=== PATIENT | male | born 1970 | race Caucasian/White ===

== ENCOUNTER → 2016-10-23 | Outpatient (CLI) | payer MEDICARE, OTHER ==
--- NOTE | 2016-10-23 10:17 | MR ---
MRI CERVICAL SPINE: CLINICAL HISTORY: Cervicalgia per order. Neck pain for 30 years with pain down both arms per patient. TECHNIQUE: Multiplanar, multisequence imaging of the cervical spine is performed without IV contrast. COMPARISON: MRI cervical spine July 02, 2015. FINDINGS: Sagittal images of the cervical spine show the craniocervical junction to appear within nor mal limits. The cervical and upper thoracic spinal cord is normal in course, caliber, and signal. Th ere is levoconvex scoliotic curvature redemonstrated on coronal images centered near the cervical tho racic junction . The vertebral body and intravertebral disk heights are normal. No large posterior d isc herniations are seen on sagittal images. The bone marrow signal intensity is within normal limits . No significant spurring is present. Axial images show the C2-C3 level to remain within normal limits. Axial images at the C3-C4 level show some uncovertebral facet degenerative changes, left greater than right with some marginal spurring and left lateral disc protrusion causing asymmetric mild left-side d neural foraminal narrowing. Right-sided neural foramen is patent. Spinal canal is minimally effaced . No significant change from prior is seen Axial images at the C4-C5 level showed tiny left paracentral disc protrusion mildly effacing anterola teral thecal sac and causing mild left-sided neural foraminal narrowing. Right-sided neural foramen i s patent. No significant change from prior study is seen. Axial images at the C5-C6 level are felt to remain within normal limits. Axial images at the C6-C7 level show broad-based right paracentral disc protrusion effacing anterolat eral thecal sac on axial image 15 felt stable. Bilateral neural foramina remain patent. Axial images at C7-T1 level are felt to remain within normal limits. IMPRESSION: Multilevel degenerative changes in the cervical spine as detailed above with disc herniat ion most prominent at C6-C7 level again seen. No significant change from prior study is noted.
== END | disposition home or self-care (01) ==
LOC: RADMRIMAIN 07:08
PROVIDERS: ATTEND Psychiatry & Neurology Pain Medicine
DX: M50.223 Other cervical disc displacement at C6-C7 level (principal); M47.812 Spondylosis without myelopathy or radiculopathy, cervical region
CPT/HCPCS: 72141

== ENCOUNTER → 2016-11-16 | Outpatient (CLI) | payer MEDICARE, OTHER ==
[2016-11-16 11:28] LABS: ALT 30 U/L (21-72); AST 22 U/L (17-59); Alkaline Phosphatase 56 U/L (38-126); Anion Gap 12 mmol/L; Blood Urea Nitrogen 19 mg/dL (9-20); Carbon Dioxide 26 mmol/L (22-30); Chloride 109 mmol/L (98-107); Glucose 107 mg/dL (74-99); Non-African American GFR(MDRD) >60 (>60 ml/min/1.73 sqM); Potassium 4.5 mmol/L (3.5-5.1); Sodium 147 mmol/L (137-145); Total Bilirubin 0.4 mg/dL (0.2-1.3); Total Protein 6.6 g/dL (6.3-8.2)
[2016-11-16 12:12] LABS: Vitamin B12 581 pg/mL (239-931)
[2016-11-16 12:43] LABS: Hemoglobin A1C 5.2 % (4.2-6.1)
== END | disposition home or self-care (01) ==
LOC: LABWHC1 08:11
PROVIDERS: ATTEND Psychiatry & Neurology Pain Medicine
DX: R56.9 Unspecified convulsions (principal); M79.1 Myalgia
CPT/HCPCS: 36415; 80053; 82306; 82607; 83036; 84207

== ENCOUNTER → 2016-12-29 | Outpatient (CLI) | payer MEDICARE, OTHER | END | disposition home or self-care (01) | LOC: LABWHC1 09:34 | PROVIDERS: ATTEND Psychiatry & Neurology Pain Medicine | DX: Z51.81 Encounter for therapeutic drug level monitoring (principal); G40.919 Epilepsy, unspecified, intractable, without status epilepticus | CPT/HCPCS: 36415; 80164 ==

== ENCOUNTER 2017-01-30 00:50 | Emergency (ER) | payer MEDICARE, OTHER ==
[2017-01-30 01:18] VITALS: RESP 16; TEMP 98.3
--- NOTE | 2017-01-30 05:42 | ED ---
Psych HPI - General Chief Complaint: Psychiatric Symptoms Stated Complaint: ETOH Time Seen by Provider: 01/30/17 00:52 Source: patient Mode of arrival: EMS - Related Data Home Medications Medication Instructions Recorded Confirmed Albuterol Nebulized [Ventolin 2.5 mg INHALATION RT-TID 04/04/14 10/06/16 Nebulized] Divalproex ER [Depakote ER] 250 mg PO BID 04/04/14 10/06/16 Divalproex Sodium [Depakote ER] 500 mg PO BID 04/04/14 10/06/16 Multivitamin [Men's Multi-Vitamin] 1 tab PO DAILY 04/04/14 10/06/16 ALPRAZolam [Xanax] 0.5 mg PO HS 10/06/16 10/06/16 Arformoterol Tartrate [Brovana] 15 mcg INHALATION RT-BID 10/06/16 10/06/16 DULoxetine HCL [Cymbalta] 30 mg PO HS 10/06/16 10/06/16 Doxycycline Hyclate 100 mg PO DAILY 10/06/16 10/06/16 Ketoprofen [Orudis] 50 mg PO TID 10/06/16 10/06/16 Omeprazole [PriLOSEC] 20 mg PO AC-BID 10/06/16 10/06/16 Pregabalin [Lyrica] 75 mg PO QAM 10/06/16 10/06/16 Pregabalin [Lyrica] 150 mg PO HS 10/06/16 10/06/16 Ranitidine HCl [Zantac] 150 mg PO BID 10/06/16 10/06/16 levETIRAcetam [Keppra] 1,000 mg PO BID 10/06/16 10/06/16 Allergies Allergy/AdvReac Type Severity Reaction Status Date / Time hydrocodone [From Vicodin] Allergy Unknown Verified 01/30/17 01:18 phenobarbital Allergy Unknown Verified 01/30/17 01:18 Review of Systems ROS Statement: Those systems with pertinent positive or pertinent negative responses have been documented in the HPI. ROS Other: All systems not noted in ROS Statement are negative. Past Medical History Past Medical History: COPD, GERD/Reflux, Memory Impairment, Seizure Disorder History of Any Multi-Drug Resistant Organisms: None Reported Past Surgical History: Cholecystectomy, Orthopedic Surgery Additional Past Surgical History / Comment(s): vasectomy Past Psychological History: Anxiety, Depression Smoking Status: Current every day smoker Past Alcohol Use History: Occasional Past Drug Use History: None Reported General Exam Limitations: no limitations Course Vital Signs 01/30/17 01/30/17 01:15 05:33 Temperature 98.3 F Pulse Rate 100 86 Respiratory 16 16 Rate Blood Pressure 100/51 98/57 O2 Sat by Pulse 93 L 96 Oximetry Disposition Clinical Impression: Alcohol intoxication Disposition: HOME SELF-CARE Condition: Fair Instructions: Alcohol Intoxication (ED) Referrals: None,Stated [Primary Care Provider] - 1-2 days Yogi Stein MD [STAFF PHYSICIAN] - 1-2 days
[2017-01-30 06:02] VITALS: BP 94/53; PULSE 82
== END 2017-01-30 06:02 | disposition home or self-care (01) ==
LOC: EC 00:50
DX: F10.129 Alcohol abuse with intoxication, unspecified (principal); J44.9 Chronic obstructive pulmonary disease, unspecified; K21.9 Gastro-esophageal reflux disease without esophagitis; G40.909 Epilepsy, unspecified, not intractable, without status epilepticus; F41.9 Anxiety disorder, unspecified; F32.9 Major depressive disorder, single episode, unspecified; F17.210 Nicotine dependence, cigarettes, uncomplicated; Z88.5 Allergy status to narcotic agent; Z88.8 Allergy status to other drugs, medicaments and biological substances; Z79.51 Long term (current) use of inhaled steroids; Z79.899 Other long term (current) drug therapy
CPT/HCPCS: 82075; 99284

== ENCOUNTER → 2017-02-15 | Outpatient (CLI) | payer MEDICARE, OTHER | END | disposition home or self-care (01) | LOC: LABWHC1 10:48 | PROVIDERS: ATTEND Psychiatry & Neurology Pain Medicine | DX: G40.909 Epilepsy, unspecified, not intractable, without status epilepticus (principal); Z79.899 Other long term (current) drug therapy | CPT/HCPCS: 36415; 80164; 80177; 82306 ==

== ENCOUNTER 2017-04-21 21:04 | Emergency (ER) | payer MEDICARE, OTHER ==
[2017-04-21] MEDS ORDERED: SODIUM CHLORIDE 0.9% 1,000 ML IV ONE (22:12)
--- NOTE | 2017-04-21 22:32 | ED ---
Headache HPI - General Chief Complaint: Headache Stated Complaint: Dizzy/Headache Time Seen by Provider: 04/21/17 21:22 Source: RN notes reviewed Mode of arrival: ambulatory Limitations: no limitations - History of Present Illness Initial Comments: Patient is a 46-year-old male presents to the emergency room for evaluation of headache and nausea and general malaise. Patient states he has history of chronic migraines. Patient states he went to Dr. Muro's office to receive injections for headache. Patient states while walking home in the sunlight he felt very lightheaded so he sat under the shade. Patient states he felt better and while walking home and he began feeling lightheaded and nauseous again. Patient states after he got home he began developing a migraine again. Patient states he is feeling very weak and shaky and lightheaded. Patient also states he began urinating a small amount of blood while at the neurology office today. Patient denies any pain or burning during urination or trouble urinating. Patient denies flank pain or abdominal pain. Patient states he's never had this before. Patient states he's been urinating normal ever since. - Related Data Home Medications Medication Instructions Recorded Confirmed Albuterol Nebulized [Ventolin 2.5 mg INHALATION RT-TID 04/04/14 04/21/17 Nebulized] Divalproex ER [Depakote ER] 250 mg PO BID 04/04/14 04/21/17 Divalproex Sodium [Depakote ER] 500 mg PO BID 04/04/14 04/21/17 Multivitamin [Men's Multi-Vitamin] 1 tab PO DAILY 04/04/14 04/21/17 DULoxetine HCL [Cymbalta] 30 mg PO DAILY 10/06/16 04/21/17 Doxycycline Hyclate 100 mg PO DAILY 10/06/16 04/21/17 Ketoprofen [Orudis] 50 mg PO TID 10/06/16 04/21/17 Omeprazole [PriLOSEC] 20 mg PO AC-BID 10/06/16 04/21/17 Ranitidine HCl [Zantac] 150 mg PO BID 10/06/16 04/21/17 levETIRAcetam [Keppra] 1,000 mg PO BID 10/06/16 04/21/17 Biomed Pump 1 - 2 pump TOPICAL QID PRN 04/21/17 04/21/17 Cholecalciferol [Vitamin D3] 1,000 unit PO DAILY 04/21/17 04/21/17 Desipramine HCl 50 mg PO BID 04/21/17 04/21/17 Diazepam [Valium] 5 mg PO HS 04/21/17 04/21/17 Levothyroxine Sodium [Synthroid] 25 mcg PO DAILY 04/21/17 04/21/17 Mirtazapine [Remeron] 15 mg PO HS 04/21/17 04/21/17 QUEtiapine [SEROquel] 50 mg PO HS 04/21/17 04/21/17 Allergies Allergy/AdvReac Type Severity Reaction Status Date / Time hydrocodone [From Vicodin] Allergy Unknown Verified 04/21/17 22:06 phenobarbital Allergy Unknown Verified 04/21/17 22:06 Review of Systems ROS Statement: Those systems with pertinent positive or pertinent negative responses have been documented in the HPI. ROS Other: All systems not noted in ROS Statement are negative. Past Medical History Past Medical History: COPD, GERD/Reflux, Memory Impairment, Seizure Disorder History of Any Multi-Drug Resistant Organisms: None Reported Past Surgical History: Cholecystectomy, Orthopedic Surgery Additional Past Surgical History / Comment(s): vasectomy Past Psychological History: Anxiety, Depression Smoking Status: Current every day smoker Past Alcohol Use History: Occasional Past Drug Use History: None Reported General Exam - General Exam Comments Initial Comments: sitting in exam room, no acute distress. Limitations: no limitations General appearance: alert, in no apparent distress Head exam: Present: atraumatic, normocephalic, normal inspection Eye exam: Present: normal appearance ENT exam: Present: normal exam Neck exam: Present: normal inspection Respiratory exam: Present: normal lung sounds bilaterally. Absent: respiratory distress Cardiovascular Exam: Present: regular rate, normal rhythm, normal heart sounds GI/Abdominal exam: Present: soft, normal bowel sounds. Absent: distended, tenderness, guarding, rebound, rigid Extremities exam: Present: normal inspection Back exam: Present: normal inspection Neurological exam: Present: alert, oriented X3, CN II-XII intact, normal gait Psychiatric exam: Present: normal affect, normal mood Skin exam: Present: warm, dry, intact, normal color. Absent: rash Course Vital Signs 04/21/17 04/21/17 21:16 23:49 Temperature 98.4 F 98.1 F Pulse Rate 88 90 Respiratory 18 20 Rate Blood Pressure 118/75 114/63 O2 Sat by Pulse 100 95 Oximetry Medical Decision Making - Medical Decision Making Patient is a 38-year-old male presents to the emergency room for evaluation of migraine headache and lightheadedness. Labs show no concerning findings. Patient states headache is improved after fluids given. Advised patient to follow-up with neurologist or primary care provider. Patient states he understands everything that was discussed with him. Return parameters discussed. Case discussed with Dr. Conti. - Lab Data Result diagrams: 04/21/17 22:25 04/21/17 22:25 Lab Results 04/21/17 04/21/17 04/21/17 Range/Units 22:25 22:25 22:25 WBC 6.2 (3.8-10.6) k/uL RBC 4.34 (4.30-5.90) m/uL Hgb 14.0 (13.0-17.5) gm/dL Hct 40.2 (39.0-53.0) % MCV 92.5 (80.0-100.0) fL MCH 32.3 (25.0-35.0) pg MCHC 35.0 (31.0-37.0) g/dL RDW 13.0 (11.5-15.5) % Plt Count 228 (150-450) k/uL Neutrophils % 52 % Lymphocytes % 34 % Monocytes % 9 % Eosinophils % 2 % Basophils % 0 % Neutrophils # 3.2 (1.3-7.7) k/uL Lymphocytes # 2.1 (1.0-4.8) k/uL Monocytes # 0.5 (0-1.0) k/uL Eosinophils # 0.2 (0-0.7) k/uL Basophils # 0.0 (0-0.2) k/uL Sodium 142 (137-145) mmol/L Potassium 4.5 (3.5-5.1) mmol/L Chloride 107 (98-107) mmol/L Carbon Dioxide 28 (22-30) mmol/L Anion Gap 7 mmol/L BUN 27 H (9-20) mg/dL Creatinine 1.08 (0.66-1.25) mg/dL Est GFR (MDRD) Af Amer >60 (>60 ml/min/1.73 sqM) Est GFR (MDRD) Non-Af >60 (>60 ml/min/1.73 sqM) Glucose 98 (74-99) mg/dL Calcium 9.8 (8.4-10.2) mg/dL Total Bilirubin 0.5 (0.2-1.3) mg/dL AST 20 (17-59) U/L ALT 23 (21-72) U/L Alkaline Phosphatase 56 (38-126) U/L Total Protein 7.2 (6.3-8.2) g/dL Albumin 4.3 (3.5-5.0) g/dL Urine Color Yellow Urine Appearance Clear (Clear) Urine pH 6.0 (5.0-8.0) Ur Specific [place] 1.019 (1.001-1.035) Urine Protein Negative (Negative) Urine Glucose (UA) Negative (Negative) Urine Ketones Negative (Negative) Urine Blood Negative (Negative) Urine Nitrite Negative (Negative) Urine Bilirubin Negative (Negative) Urine Urobilinogen <2.0 (<2.0) mg/dL Ur Leukocyte Esterase Negative (Negative) Disposition Clinical Impression: Headache, Nausea Disposition: HOME SELF-CARE Condition: Good Instructions: Migraine Headache (ED) Additional Instructions: Please follow up with primary care provider or neurologist in 1-2 days. If any new symptom arises or symptoms worsen, return to ER as soon as possible. Referrals: Charles Muro MD [Primary Care Provider] - 1-2 days Time of Disposition: 00:05
[2017-04-21 22:34] LABS: Appearance,Urine Clear (Clear); Basophils % (A) 0 %; Bilirubin,Urine Negative (Negative); CHCM 34.7; Eosinophils # (A) 0.2 k/uL (0-0.7); Eosinophils % (A) 2 %; Glucose,Urine (UA) Negative (Negative); HCT 40.2 % (39.0-53.0); HDW 2.42; Ketones,Urine Negative (Negative); Leukocyte Esterase,Urine Negative (Negative); Luc # (Auto) 0.17; Luc % (Auto) 3; Lymphocytes # (A) 2.1 k/uL (1.0-4.8); Lymphocytes % (A) 34 %; MCH 32.3 pg (25.0-35.0); MCV 92.5 fL (80.0-100.0); Mean Platelet Volume 7.2; Monocytes # (A) 0.5 k/uL (0-1.0); Monocytes % (A) 9 %; Neutrophils # (A) 3.2 k/uL (1.3-7.7); Neutrophils % (A) 52 %; Nitrite,Urine Negative (Negative); Protein,Urine Negative (Negative); RBC 4.34 m/uL (4.30-5.90); Specific Gravity,Urine 1.019 (1.001-1.035); UA Billing (MACRO vs. MICRO) CHEM; Urobilinogen,Urine <2.0 mg/dL (<2.0); WBC 6.2 k/uL (3.8-10.6); WBC (Perox) 6.41
[2017-04-21 22:46] LABS: ALT 23 U/L (21-72); AST 20 U/L (17-59); Alkaline Phosphatase 56 U/L (38-126); Anion Gap 7 mmol/L; Blood Urea Nitrogen 27 mg/dL (9-20); Calcium 9.8 mg/dL (8.4-10.2); Carbon Dioxide 28 mmol/L (22-30); Chloride 107 mmol/L (98-107); Glucose 98 mg/dL (74-99); Non-African American GFR(MDRD) >60 (>60 ml/min/1.73 sqM); Potassium 4.5 mmol/L (3.5-5.1); Sodium 142 mmol/L (137-145); Total Bilirubin 0.5 mg/dL (0.2-1.3); Total Protein 7.2 g/dL (6.3-8.2)
[2017-04-21 23:52] VITALS: BP 114/63; PULSE 90; RESP 20; TEMP 98.1
== END 2017-04-22 00:18 | disposition home or self-care (01) ==
LOC: EC 21:04
DX: R51 Headache (principal); R11.0 Nausea; R53.81 Other malaise; R42 Dizziness and giddiness; J44.9 Chronic obstructive pulmonary disease, unspecified; K21.9 Gastro-esophageal reflux disease without esophagitis; G40.909 Epilepsy, unspecified, not intractable, without status epilepticus; F41.9 Anxiety disorder, unspecified; F32.9 Major depressive disorder, single episode, unspecified; F17.200 Nicotine dependence, unspecified, uncomplicated; Z86.69 Personal history of other diseases of the nervous system and sense organs; Z88.5 Allergy status to narcotic agent; Z88.8 Allergy status to other drugs, medicaments and biological substances; Z79.899 Other long term (current) drug therapy
CPT/HCPCS: 36415; 80053; 81003; 85025; 96360; 99283

== ENCOUNTER 2017-05-31 18:07 | Emergency (ER) | payer MEDICARE, OTHER ==
[2017-05-31 19:24] VITALS: RESP 18
--- NOTE | 2017-05-31 19:41 | ED ---
General Adult HPI - General Chief complaint: Seizure Stated complaint: Seizures (petit mals x 50) Time Seen by Provider: 05/31/17 19:04 Source: patient Mode of arrival: ambulatory Limitations: no limitations - History of Present Illness Initial comments: Patient is a 46-year-old male with past medical history of seizure disorder who presents to the ED today via private vehicle for evaluation of multiple seizures today. Per the patient has a history of tonic-clonic as well as absence seizure's. He is currently taking 1500 mg of Depakote daily, 2000 mg of Keppra daily and was recently started on ethosuximide. Per the patient he was advised to take one pill of ethosuximide daily then increase to 1 pill twice daily. Patient states that he started the medication on May 19, and yesterday was the first day that he took 2 pills daily. Patient states that today he believes he has had around 50 absence seizure's each lasting a few seconds. Patient states that when he has these seizures his eyes rolled backwards and he is just "gone" her moment. He states that when the seizure and he usually repeats what he is saying prior to the seizure but is back at his baseline. He seizures or similar to that Seizures He Has Had in the past. Patient States That He Called His Neurologist Today Who Advised Him to Increase His Ethosuximide to 3 Pills 3 Times Daily. Upon evaluation of the prescription for ethosuximide is states that the patient should be currently taking 2 pills 2 times daily. I read this to the patient who states he believed that the instructions were to take only 2 pills a day and is very confused by these instructions. He had only been taking a quarter of the recommended dose until yesterday when he took half the recommended dose. Patient does report he has a headache today, however he states he usually gets a headache when he has multiple SEIZURES. HE DENIES ANY FEVERS, CHILLS, NAUSEA , VOMITING, CHEST PAIN OR TROUBLE BREATHING - Related Data Home Medications Medication Instructions Recorded Confirmed Albuterol Nebulized [Ventolin 2.5 mg INHALATION RT-TID 04/04/14 05/31/17 Nebulized] Divalproex ER [Depakote ER] 250 mg PO BID 04/04/14 05/31/17 Divalproex Sodium [Depakote ER] 500 mg PO BID 04/04/14 05/31/17 Multivitamin [Men's Multi-Vitamin] 1 tab PO DAILY 04/04/14 05/31/17 DULoxetine HCL [Cymbalta] 30 mg PO DAILY 10/06/16 05/31/17 Doxycycline Hyclate 100 mg PO DAILY 10/06/16 05/31/17 Ketoprofen [Orudis] 50 mg PO TID 10/06/16 05/31/17 Omeprazole [PriLOSEC] 20 mg PO AC-BID 10/06/16 05/31/17 Ranitidine HCl [Zantac] 150 mg PO BID 10/06/16 05/31/17 levETIRAcetam [Keppra] 1,000 mg PO BID 10/06/16 05/31/17 Biomed Pump 1 - 2 pump TOPICAL QID PRN 04/21/17 05/31/17 Cholecalciferol [Vitamin D3] 1,000 unit PO DAILY 04/21/17 05/31/17 Desipramine HCl 50 mg PO BID 04/21/17 05/31/17 Diazepam [Valium] 5 mg PO HS 04/21/17 05/31/17 Levothyroxine Sodium [Synthroid] 25 mcg PO DAILY 04/21/17 05/31/17 Mirtazapine [Remeron] 15 mg PO HS 04/21/17 05/31/17 QUEtiapine [SEROquel] 50 mg PO HS 04/21/17 05/31/17 Ethosuximide [Zarontin] 500 mg PO BID 05/31/17 05/31/17 Allergies Allergy/AdvReac Type Severity Reaction Status Date / Time hydrocodone [From Vicodin] Allergy Unknown Verified 05/31/17 19:12 naproxen Allergy Unknown Verified 05/31/17 19:12 phenobarbital Allergy Unknown Verified 05/31/17 19:12 Review of Systems ROS Statement: Those systems with pertinent positive or pertinent negative responses have been documented in the HPI. ROS Other: All systems not noted in ROS Statement are negative. Constitutional: Denies: fever, chills Eyes: Denies: vision change Respiratory: Denies: cough, dyspnea Cardiovascular: Denies: chest pain, palpitations Endocrine: Denies: fatigue Gastrointestinal: Denies: abdominal pain, nausea, vomiting Musculoskeletal: Denies: back pain Skin: Denies: rash, lesions Neurological: Reports: headache, other (seizures) Psychiatric: Denies: anxiety, depression Hematological/Lymphatic: Denies: easy bleeding, easy bruising Past Medical History Past Medical History: COPD, GERD/Reflux, Memory Impairment, Seizure Disorder History of Any Multi-Drug Resistant Organisms: None Reported Past Surgical History: Cholecystectomy, Orthopedic Surgery Additional Past Surgical History / Comment(s): vasectomy Past Psychological History: Anxiety, Depression Smoking Status: Current every day smoker Past Alcohol Use History: Occasional Past Drug Use History: None Reported General Exam Limitations: no limitations General appearance: alert, in no apparent distress Head exam: Present: atraumatic, normocephalic, normal inspection Eye exam: Present: normal appearance, PERRL, EOMI. Absent: scleral icterus, conjunctival injection, periorbital swelling ENT exam: Present: normal exam, mucous membranes moist Neck exam: Present: normal inspection. Absent: tenderness, meningismus, lymphadenopathy Respiratory exam: Present: normal lung sounds bilaterally. Absent: respiratory distress, wheezes, rales, rhonchi, stridor Cardiovascular Exam: Present: regular rate, normal rhythm, normal heart sounds. Absent: systolic murmur, diastolic murmur, rubs, gallop, clicks GI/Abdominal exam: Present: soft, normal bowel sounds. Absent: distended, tenderness, guarding, rebound, rigid Extremities exam: Present: normal inspection, full ROM, normal capillary refill. Absent: tenderness, pedal edema, joint swelling, calf tenderness Neurological exam: Present: alert, oriented X3, CN II-XII intact Psychiatric exam: Present: other (odd affect, impaired recent memory) Skin exam: Present: warm, dry, intact Course Vital Signs 05/31/17 05/31/17 05/31/17 18:37 19:22 20:18 Temperature 98.3 F Pulse Rate 111 H 98 91 Respiratory 20 18 18 Rate Blood Pressure 149/87 124/87 133/82 O2 Sat by Pulse 100 100 97 Oximetry 05/31/17 21:09 Temperature 97.9 F Pulse Rate 92 Respiratory 18 Rate Blood Pressure 151/97 O2 Sat by Pulse 99 Oximetry Medical Decision Making - Medical Decision Making She was seen and evaluated, vital signs were reviewed. Patient was noted to be tachycardic Patient in seizure precautions Labs and IV fluids were ordered clearly does not understand the instructions on his ethosuximide, he has been underdosing himself by taking only 1 pill daily up until yesterday at which time he took 2 pills. Per the instructions on the bottle the patient should be taking 4 pills daily and per the patient he talk to his neurologist today who advised him to take 6 pills daily. Patient states he feels very confused about this medication. Patient's tachycardia improved after IV fluids Labs were unremarkable Depakote level was therapeutic Results were discussed with the patient, patient states he wanted and ethosuximide level, I advised him with this is not a lot we can obtain. The patient expresses appointment stated that he wouldn't come to the hospital if he knew he can get this level tested. Patient states he will see his neurologist in the morning to discuss his confusion about his medications. In the meantime he will take to ethosuximide in the morning prior to going to his neurology appointment. Patient has remained stable throughout his ED stay. He reports she's had no more absent seizures. He has had no witnessed Seizures. He Reports Feeling Well and Agreeable to Plan for Discharge Home. All Questions Pertaining to Care Were Answered the Best My Ability and Patient Was Discharged Home in Stable Condition. - Lab Data Result diagrams: 05/31/17 19:48 05/31/17 19:48 Lab Results 05/31/17 05/31/17 05/31/17 Range/Units 19:48 19:48 20:20 WBC 7.4 (3.8-10.6) k/uL RBC 4.50 (4.30-5.90) m/uL Hgb 14.4 (13.0-17.5) gm/dL Hct 41.7 (39.0-53.0) % MCV 92.7 (80.0-100.0) fL MCH 32.0 (25.0-35.0) pg MCHC 34.6 (31.0-37.0) g/dL RDW 13.3 (11.5-15.5) % Plt Count 232 (150-450) k/uL Neutrophils % 58 % Lymphocytes % 29 % Monocytes % 7 % Eosinophils % 2 % Basophils % 0 % Neutrophils # 4.3 (1.3-7.7) k/uL Lymphocytes # 2.1 (1.0-4.8) k/uL Monocytes # 0.5 (0-1.0) k/uL Eosinophils # 0.1 (0-0.7) k/uL Basophils # 0.0 (0-0.2) k/uL Sodium 144 (137-145) mmol/L Potassium 4.4 (3.5-5.1) mmol/L Chloride 106 (98-107) mmol/L Carbon Dioxide 27 (22-30) mmol/L Anion Gap 11 mmol/L BUN 14 (9-20) mg/dL Creatinine 0.80 (0.66-1.25) mg/dL Est GFR (MDRD) Af Amer >60 (>60 ml/min/1.73 sqM) Est GFR (MDRD) Non-Af >60 (>60 ml/min/1.73 sqM) Glucose 91 (74-99) mg/dL Calcium 10.1 (8.4-10.2) mg/dL Urine Color Yellow Urine Appearance Clear (Clear) Urine pH 7.0 (5.0-8.0) Ur Specific [place] 1.013 (1.001-1.035) Urine Protein Negative (Negative) Urine Glucose (UA) Negative (Negative) Urine Ketones Negative (Negative) Urine Blood Negative (Negative) Urine Nitrite Negative (Negative) Urine Bilirubin Negative (Negative) Urine Urobilinogen <2.0 (<2.0) mg/dL Ur Leukocyte Esterase Negative (Negative) Urine Opiates Screen (NotDetected) Ur Oxycodone Screen (NotDetected) Urine Methadone Screen (NotDetected) Ur Propoxyphene Screen (NotDetected) Ur Barbiturates Screen (NotDetected) Valproic Acid 64.2 ug/mL U Tricyclic Antidepress (NotDetected) Ur Phencyclidine Scrn (NotDetected) Ur Amphetamines Screen (NotDetected) U Methamphetamines Scrn (NotDetected) U Benzodiazepines Scrn (NotDetected) Urine Cocaine Screen (NotDetected) U Marijuana (THC) Screen (NotDetected) 05/31/17 Range/Units 20:20 WBC (3.8-10.6) k/uL RBC (4.30-5.90) m/uL Hgb (13.0-17.5) gm/dL Hct (39.0-53.0) % MCV (80.0-100.0) fL MCH (25.0-35.0) pg MCHC (31.0-37.0) g/dL RDW (11.5-15.5) % Plt Count (150-450) k/uL Neutrophils % % Lymphocytes % % Monocytes % % Eosinophils % % Basophils % % Neutrophils # (1.3-7.7) k/uL Lymphocytes # (1.0-4.8) k/uL Monocytes # (0-1.0) k/uL Eosinophils # (0-0.7) k/uL Basophils # (0-0.2) k/uL Sodium (137-145) mmol/L Potassium (3.5-5.1) mmol/L Chloride (98-107) mmol/L Carbon Dioxide (22-30) mmol/L Anion Gap mmol/L BUN (9-20) mg/dL Creatinine (0.66-1.25) mg/dL Est GFR (MDRD) Af Amer (>60 ml/min/1.73 sqM) Est GFR (MDRD) Non-Af (>60 ml/min/1.73 sqM) Glucose (74-99) mg/dL Calcium (8.4-10.2) mg/dL Urine Color Urine Appearance (Clear) Urine pH (5.0-8.0) Ur Specific [place] (1.001-1.035) Urine Protein (Negative) Urine Glucose (UA) (Negative) Urine Ketones (Negative) Urine Blood (Negative) Urine Nitrite (Negative) Urine Bilirubin (Negative) Urine Urobilinogen (<2.0) mg/dL Ur Leukocyte Esterase (Negative) Urine Opiates Screen Not Detected (NotDetected) Ur Oxycodone Screen Not Detected (NotDetected) Urine Methadone Screen Not Detected (NotDetected) Ur Propoxyphene Screen Not Detected (NotDetected) Ur Barbiturates Screen Not Detected (NotDetected) Valproic Acid ug/mL U Tricyclic Antidepress Detected H (NotDetected) Ur Phencyclidine Scrn Not Detected (NotDetected) Ur Amphetamines Screen Not Detected (NotDetected) U Methamphetamines Scrn Not Detected (NotDetected) U Benzodiazepines Scrn Detected H (NotDetected) Urine Cocaine Screen Not Detected (NotDetected) U Marijuana (THC) Screen Not Detected (NotDetected) Disposition Clinical Impression: Absence seizure Disposition: HOME SELF-CARE Condition: Good Instructions: Recurrent Seizures in Adults (ED) Referrals: Sanket Lee MD [STAFF PHYSICIAN] - 1-2 days
[2017-05-31] MEDS ORDERED: SODIUM CHLORIDE 0.9% 1,000 ML IV ONE (19:43)
[2017-05-31 19:57] LABS: Basophils % (A) 0 %; CH 32.1; CHCM 34.8; Eosinophils # (A) 0.1 k/uL (0-0.7); Eosinophils % (A) 2 %; HCT 41.7 % (39.0-53.0); HDW 2.66; HGB 14.4 gm/dL (13.0-17.5); Luc # (Auto) 0.31; Luc % (Auto) 4; Lymphocytes # (A) 2.1 k/uL (1.0-4.8); Lymphocytes % (A) 29 %; MCHC 34.6 g/dL (31.0-37.0); MCV 92.7 fL (80.0-100.0); Mean Platelet Volume 6.6; Monocytes # (A) 0.5 k/uL (0-1.0); Monocytes % (A) 7 %; Neutrophils # (A) 4.3 k/uL (1.3-7.7); Neutrophils % (A) 58 %; RDW 13.3 % (11.5-15.5); WBC 7.4 k/uL (3.8-10.6)
[2017-05-31 20:12] LABS: Anion Gap 11 mmol/L; Blood Urea Nitrogen 14 mg/dL (9-20); Calcium 10.1 mg/dL (8.4-10.2); Carbon Dioxide 27 mmol/L (22-30); Chloride 106 mmol/L (98-107); Glucose 91 mg/dL (74-99); Non-African American GFR(MDRD) >60 (>60 ml/min/1.73 sqM); Potassium 4.4 mmol/L (3.5-5.1); Sodium 144 mmol/L (137-145)
[2017-05-31 20:39] LABS: Appearance,Urine Clear (Clear); Bilirubin,Urine Negative (Negative); Glucose,Urine (UA) Negative (Negative); Ketones,Urine Negative (Negative); Leukocyte Esterase,Urine Negative (Negative); Nitrite,Urine Negative (Negative); Protein,Urine Negative (Negative); Specific Gravity,Urine 1.013 (1.001-1.035); UA Billing (MACRO vs. MICRO) CHEM; Urobilinogen,Urine <2.0 mg/dL (<2.0)
[2017-05-31 21:11] VITALS: BP 151/97; PULSE 92; TEMP 97.9
== END 2017-05-31 21:21 | disposition home or self-care (01) ==
LOC: EC 18:07
DX: G40.A09 Absence epileptic syndrome, not intractable, without status epilepticus (principal); R00.0 Tachycardia, unspecified; K21.9 Gastro-esophageal reflux disease without esophagitis; F41.9 Anxiety disorder, unspecified; F32.9 Major depressive disorder, single episode, unspecified; J44.9 Chronic obstructive pulmonary disease, unspecified; F17.200 Nicotine dependence, unspecified, uncomplicated; Z79.899 Other long term (current) drug therapy; Z88.1 Allergy status to other antibiotic agents; Z88.5 Allergy status to narcotic agent; Z88.8 Allergy status to other drugs, medicaments and biological substances
CPT/HCPCS: 36415; 80048; 80164; 80306; 81003; 85025; 99284

== ENCOUNTER → 2017-06-27 | Outpatient (CLI) | payer MEDICARE, OTHER | END | disposition home or self-care (01) | LOC: LABWHC1 09:23 | PROVIDERS: ATTEND Psychiatry & Neurology Neurology | DX: G40.909 Epilepsy, unspecified, not intractable, without status epilepticus (principal); Z51.81 Encounter for therapeutic drug level monitoring; Z79.899 Other long term (current) drug therapy | CPT/HCPCS: 36415; 80164; 80177 ==

== ENCOUNTER 2017-07-29 10:38 | Emergency (ER) | payer MEDICARE, OTHER ==
--- NOTE | 2017-07-29 11:40 | ED ---
General Adult HPI - General Chief complaint: Extremity Injury, Upper Stated complaint: RT HAND LEFT RIB INJURY FROM FALL Time Seen by Provider: 07/29/17 11:19 Source: patient, RN notes reviewed Mode of arrival: ambulatory Limitations: physical limitation - History of Present Illness Initial comments: 46-year-old male presenting status post fall. Patient states 3 days prior he fell down the stairs, missing a step. No preceding chest pain or palpitations. Patient fell striking his right hand and left chest wall. His been no difficulty breathing since the fall. No abdominal pain. No hematuria. Patient has no other pain complaint. No head or neck pain. He is complaining only of left lateral rib pain and right hand pain. - Related Data Home Medications Medication Instructions Recorded Confirmed Albuterol Nebulized [Ventolin 2.5 mg INHALATION RT-DAILY 04/04/14 07/29/17 Nebulized] Divalproex ER [Depakote ER] 250 mg PO BID 04/04/14 07/29/17 Divalproex Sodium [Depakote ER] 500 mg PO BID 04/04/14 07/29/17 Multivitamin [Men's Multi-Vitamin] 1 tab PO DAILY 04/04/14 07/29/17 DULoxetine HCL [Cymbalta] 30 mg PO DAILY 10/06/16 07/29/17 Omeprazole [PriLOSEC] 20 mg PO AC-BID 10/06/16 07/29/17 Ranitidine HCl [Zantac] 150 mg PO BID 10/06/16 07/29/17 levETIRAcetam [Keppra] 1,000 mg PO BID 10/06/16 07/29/17 Cholecalciferol [Vitamin D3] 1,000 unit PO DAILY 04/21/17 07/29/17 Diazepam [Valium] 5 mg PO HS 04/21/17 07/29/17 Levothyroxine Sodium [Synthroid] 25 mcg PO DAILY 04/21/17 07/29/17 Mirtazapine [Remeron] 15 mg PO HS 04/21/17 07/29/17 QUEtiapine [SEROquel] 50 mg PO HS 04/21/17 07/29/17 Ethosuximide [Zarontin] 500 mg PO BID 05/31/17 07/29/17 Arformoterol Tartrate [Brovana] 15 mcg INHALATION RT-BID 07/29/17 07/29/17 Previous Rx's Medication Instructions Recorded Acetaminophen-Codeine 300-30mg 1 tab PO Q6H PRN #12 tablet 07/29/17 [Tylenol #3] Allergies Allergy/AdvReac Type Severity Reaction Status Date / Time hydrocodone [From Vicodin] Allergy Unknown Verified 07/29/17 11:17 naproxen Allergy Unknown Verified 07/29/17 11:17 phenobarbital Allergy Unknown Verified 07/29/17 11:17 Review of Systems ROS Statement: Those systems with pertinent positive or pertinent negative responses have been documented in the HPI. ROS Other: All systems not noted in ROS Statement are negative. Past Medical History Past Medical History: COPD, GERD/Reflux, Memory Impairment, Seizure Disorder History of Any Multi-Drug Resistant Organisms: None Reported Past Surgical History: Cholecystectomy, Orthopedic Surgery Additional Past Surgical History / Comment(s): vasectomy Past Psychological History: Anxiety, Depression Smoking Status: Current every day smoker Past Alcohol Use History: None Reported Past Drug Use History: None Reported General Exam Limitations: physical limitation General appearance: alert, in no apparent distress Head exam: Present: atraumatic, normocephalic Eye exam: Present: normal appearance, PERRL ENT exam: Present: normal exam Neck exam: Present: normal inspection, full ROM. Absent: tenderness Respiratory exam: Present: normal lung sounds bilaterally, respiratory distress , chest wall tenderness (Left lateral chest wall, no external signs of trauma) Cardiovascular Exam: Present: regular rate, normal rhythm GI/Abdominal exam: Present: soft. Absent: distended, tenderness Extremities exam: Present: normal inspection, tenderness (Tenderness over the fifth metacarpal, no swelling or ecchymosis) Neurological exam: Present: alert, oriented X3, CN II-XII intact. Absent: motor sensory deficit Psychiatric exam: Present: normal affect, normal mood Skin exam: Present: warm, dry, intact Course Vital Signs 07/29/17 10:52 Temperature 97.7 F Pulse Rate 100 Respiratory 18 Rate Blood Pressure 134/89 O2 Sat by Pulse 99 Oximetry Procedures - Orthopedic Splinting/Casting Injury #1 Side: right Upper Extremity Injury Location: hand Upper Extremity Immobilizer: ulnar gutter Additional Comments: Neurovascularly intact pre-and post-splinting Medical Decision Making - Medical Decision Making 46-year-old male presents status post fall. Patient complaining of right hip pain and left rib pain. On examination patient does have tenderness over the base of the fifth metacarpal. X-ray reveals a nondisplaced fracture. Patient' s placed in an ulnar gutter and followed up with hand surgery. Regarding left rib pain. X-ray reveals nondisplaced fracture of the anterior margin of ribs 2 and 3 on the left that appear to have calcium formation, there is a possible nondisplaced fracture of the lateral margin of ribs 7, this is more consistent with the patient's current pain complaints. He is given an incentive spirometer and will follow-up with his primary care physician. Disposition Clinical Impression: Metacarpal bone fracture, Rib fracture Disposition: HOME SELF-CARE Condition: Good Instructions: Hand Fracture (ED), Rib Fracture (ED) Prescriptions: Acetaminophen-Codeine 300-30mg [Tylenol #3] 1 tab PO Q6H PRN #12 tablet PRN Reason: Pain Referrals: Minesh Watkins MD [Primary Care Provider] - 1-2 days Carloz Floyd DO [Doctor of Osteopathic Medicine] - 1-2 days Time of Disposition: 12:28
--- NOTE | 2017-07-29 12:02 | XR ---
EXAMINATION TYPE: XR hand complete RT DATE OF EXAM: 07/29/2017 CLINICAL HISTORY: Right hand pain after fall TECHNIQUE: Frontal, lateral and oblique images of the right hand are obtained. COMPARISON: None. FINDINGS: There is a noncomminuted, overall nondisplaced intra-articular fracture of the base of the fifth metacarpal with focal overlying soft tissue swelling. No additional fractures are seen. Osseous mineralization is within normal limits. No radiopaque foreign body. IMPRESSION: Intra-articular noncomminuted overall nondisplaced fracture of the base of the fifth meta carpal with associated soft tissue swelling.
--- NOTE | 2017-07-29 12:08 | XR ---
EXAMINATION TYPE: XR ribs LT w pa chest xray DATE OF EXAM: 07/29/2017 COMPARISON: NONE HISTORY: Fall downstairs with left-sided rib pain TECHNIQUE: Frontal chest radiograph and frontal as well as oblique views of the left ribs were perfor med. FINDINGS: Nondisplaced fractures of the anterior margins of ribs 2 and 3 on the left are seen that [place] to have surrounding callus formation on are age indeterminant both favored to be at least subacu te. Additional possible nondisplaced fracture of the seventh rib at its lateral margin is seen. The lungs are clear without evidence of focal consolidation, pleural effusion or pneumothorax. Right ribs remain unremarkable. Mild degenerative changes of the thoracic spine are noted. Cardiomediastina l silhouette is within normal limits with a prominent right epicardial fat pad present. IMPRESSION: 1. Nondisplaced fractures of the anterior margins of ribs 2 and 3 on the left that appear to have antonia rosalinda formation and are age indeterminant, favored to be at least subacute. 2. Additional possible nondisplaced fracture of the lateral margin of rib 7 on the left. 3. No acute cardiopulmonary process.
[2017-07-29 12:36] VITALS: BP 155/90; PULSE 85; RESP 20; TEMP 98
== END 2017-07-29 12:37 | disposition home or self-care (01) ==
LOC: EC 10:38
DX: S62.346A Nondisplaced fracture of base of fifth metacarpal bone, right hand, initial encounter for closed fracture (principal); S22.42XA Multiple fractures of ribs, left side, initial encounter for closed fracture; J44.9 Chronic obstructive pulmonary disease, unspecified; K21.9 Gastro-esophageal reflux disease without esophagitis; G40.909 Epilepsy, unspecified, not intractable, without status epilepticus; F32.9 Major depressive disorder, single episode, unspecified; F41.9 Anxiety disorder, unspecified; F17.200 Nicotine dependence, unspecified, uncomplicated; Z88.5 Allergy status to narcotic agent; Z88.6 Allergy status to analgesic agent; Z88.8 Allergy status to other drugs, medicaments and biological substances; Z79.899 Other long term (current) drug therapy; W10.9XXA Fall (on) (from) unspecified stairs and steps, initial encounter
CPT/HCPCS: 29125; 99283

== ENCOUNTER 2017-10-29 11:09 | Inpatient (IN) | payer MEDICARE, OTHER ==
[2017-10-29] MEDS ORDERED: MAGNESIUM SULFATE-D5W PMX 1 GM in DEXTROSE/WATER 1 100ML.BAG IVPB STA (11:11)
[2017-10-29] MEDS ORDERED: methylPREDNISolone SOD SUCCI 125 MG/2 ML VIAL IV STA (11:11)
[2017-10-29] MEDS ORDERED: IPRATROPIUM-ALBUTEROL 3 ML NEB INHALATION STA ×2 (11:11→14:06)
[2017-10-29] MEDS ORDERED: SODIUM CHLORIDE 0.9% 1,000 ML IV STA (11:11)
--- NOTE | 2017-10-29 11:25 | ED ---
SOB HPI - General Chief Complaint: Shortness of Breath Stated Complaint: Difficulty Breathing Time Seen by Provider: 10/29/17 11:09 Source: patient, EMS, RN notes reviewed Mode of arrival: EMS Limitations: no limitations - History of Present Illness Initial Comments: This is a 46-year-old male who was a smoker who has a history of COPD who states he had the onset last evening of a cough with shortness of breath. He had very bad this morning he had some sweats during the night no fevers or chills. He also complains of some right-sided chest pain after having fallen last week. He was never evaluated. Pain is sharp in nature. He had a cough with clear phlegm. He was given one updraft in route by paramedics was minimal relief thus far. He still has severe coughing and wheezing. MD Complaint: shortness of breath, cough - Related Data Home Medications Medication Instructions Recorded Confirmed Albuterol Nebulized [Ventolin 2.5 mg INHALATION RT-DAILY 04/04/14 10/29/17 Nebulized] Divalproex ER [Depakote ER] 250 mg PO BID 04/04/14 10/29/17 Divalproex Sodium [Depakote ER] 500 mg PO BID 04/04/14 10/29/17 Multivitamin [Men's Multi-Vitamin] 1 tab PO DAILY 04/04/14 10/29/17 Omeprazole [PriLOSEC] 20 mg PO AC-BID 10/06/16 10/29/17 Ranitidine HCl [Zantac] 150 mg PO BID 10/06/16 10/29/17 levETIRAcetam [Keppra] 1,000 mg PO BID 10/06/16 10/29/17 Cholecalciferol [Vitamin D3] 1,000 unit PO DAILY 04/21/17 10/29/17 Arformoterol Tartrate [Brovana] 15 mcg INHALATION RT-BID 07/29/17 10/29/17 DULoxetine HCL [Cymbalta] 60 mg PO HS 10/29/17 10/29/17 Levothyroxine Sodium [Synthroid] 50 mcg PO DAILY 10/29/17 10/29/17 Lisinopril-Hctz 10-12.5 mg 1 tab PO DAILY 10/29/17 10/29/17 [Zestoretic 10-12.5] Mirtazapine [Remeron] 30 mg PO HS 10/29/17 10/29/17 Allergies Allergy/AdvReac Type Severity Reaction Status Date / Time hydrocodone [From Vicodin] Allergy Unknown Verified 10/29/17 11:14 naproxen Allergy Unknown Verified 10/29/17 11:14 phenobarbital Allergy Unknown Verified 10/29/17 11:14 Review of Systems ROS Statement: Those systems with pertinent positive or pertinent negative responses have been documented in the HPI. ROS Other: All systems not noted in ROS Statement are negative. Past Medical History Past Medical History: COPD, GERD/Reflux, Seizure Disorder History of Any Multi-Drug Resistant Organisms: None Reported Past Surgical History: Cholecystectomy, Orthopedic Surgery Additional Past Surgical History / Comment(s): vasectomy Past Psychological History: Anxiety, Depression Smoking Status: Current every day smoker Past Alcohol Use History: None Reported Past Drug Use History: None Reported General Exam - General Exam Comments Initial Comments: This is a well-developed well-nourished awake alert oriented 3 male Limitations: no limitations General appearance: alert, anxious, in distress Head exam: Present: atraumatic, normocephalic, normal inspection Eye exam: Present: normal appearance, PERRL, EOMI. Absent: scleral icterus, conjunctival injection, periorbital swelling ENT exam: Present: normal exam, mucous membranes moist Neck exam: Present: normal inspection. Absent: tenderness, meningismus, lymphadenopathy Respiratory exam: Present: wheezes, accessory muscle use, decreased breath sounds. Absent: respiratory distress, rales, rhonchi, stridor Cardiovascular Exam: Present: normal rhythm, tachycardia, normal heart sounds. Absent: systolic murmur, diastolic murmur, rubs, gallop, clicks GI/Abdominal exam: Present: soft, normal bowel sounds. Absent: distended, tenderness, guarding, rebound, rigid Extremities exam: Present: normal inspection, full ROM, normal capillary refill. Absent: tenderness, pedal edema, joint swelling, calf tenderness Back exam: Present: normal inspection Neurological exam: Present: alert, oriented X3, CN II-XII intact Psychiatric exam: Present: normal affect, normal mood Skin exam: Present: warm, dry, intact, normal color. Absent: rash Course Vital Signs 10/29/17 10/29/17 10/29/17 11:10 12:13 12:38 Temperature 98.9 F Pulse Rate 134 H 112 H 111 H Respiratory 24 16 20 Rate Blood Pressure 130/72 115/62 O2 Sat by Pulse 97 97 Oximetry 10/29/17 10/29/17 10/29/17 13:46 14:40 14:49 Temperature Pulse Rate 100 100 104 H Respiratory 20 Rate Blood Pressure 102/66 O2 Sat by Pulse 97 Oximetry - Reevaluation(s) Reevaluation #1: 10/29/17 15:04 After the first series of treatments patient still continued to have difficulty breathing. He is still very dyspneic with wheezes diffusely in all lung [place] Reevaluation #2: 10/29/17 15:04 Reevaluation after last Reveals patient still coughing very dyspneic and wheezy. Patient has seen Dr. Guy in the past she will be admitted for continued inpatient treatment. Medical Decision Making - Medical Decision Making The patient continues to have difficulty breathing with diffuse wheezing. I did discuss findings with him the patient will be admitted I did discuss the case with Dr. Watkins. Patient does see Dr. Coles for pulmonary medicine will be consulted. - Lab Data Result diagrams: 10/29/17 11:22 10/29/17 11:22 Lab Results 10/29/17 10/29/17 10/29/17 Range/Units 11:22 11:22 11:22 WBC 7.3 (3.8-10.6) k/uL RBC 4.13 L (4.30-5.90) m/uL Hgb 12.8 L (13.0-17.5) gm/dL Hct 38.0 L (39.0-53.0) % MCV 92.1 (80.0-100.0) fL MCH 31.1 (25.0-35.0) pg MCHC 33.8 (31.0-37.0) g/dL RDW 13.7 (11.5-15.5) % Plt Count 189 (150-450) k/uL Neutrophils % (Manual) 67 % Band Neutrophils % 12 % Lymphocytes % (Manual) 11 % Monocytes % (Manual) 11 % Basophils % (Manual) 1 % Myelocytes % 1 % Neutrophils # (Manual) 5.70 (1.3-7.7) k/uL Lymphocytes # (Manual) 0.80 L (1.0-4.8) k/uL Monocytes # (Manual) 0.80 (0-1.0) k/uL Basophils # (Manual) 0.07 (0-0.2) k/uL Myelocytes # (Manual) 0.07 H (0) k/uL Nucleated RBCs 0 (0-0) /100 WBC Manual Slide Review Performed Toxic Granulation Present PT (9.0-12.0) sec INR (<1.2) APTT (22.0-30.0) sec D-Dimer (<0.60) mg/L FEU Sodium 139 (137-145) mmol/L Potassium 4.1 (3.5-5.1) mmol/L Chloride 101 (98-107) mmol/L Carbon Dioxide 25 (22-30) mmol/L Anion Gap 13 mmol/L BUN 21 H (9-20) mg/dL Creatinine 1.07 (0.66-1.25) mg/dL Est GFR (MDRD) Af Amer >60 (>60 ml/min/1.73 sqM) Est GFR (MDRD) Non-Af >60 (>60 ml/min/1.73 sqM) Glucose 107 H (74-99) mg/dL Calcium 9.6 (8.4-10.2) mg/dL Magnesium 1.9 (1.6-2.3) mg/dL Total Bilirubin 0.2 (0.2-1.3) mg/dL AST 28 (17-59) U/L ALT 33 (21-72) U/L Alkaline Phosphatase 58 (38-126) U/L Total Creatine Kinase 122 (55-170) U/L CK-MB (CK-2) 1.2 (0.0-2.4) ng/mL CK-MB (CK-2) Rel Index 1.0 Troponin I <0.012 (0.000-0.034) ng/mL NT-Pro-B Natriuret Pep pg/mL Total Protein 7.2 (6.3-8.2) g/dL Albumin 4.3 (3.5-5.0) g/dL Influenza Type A RNA (Not Detectd) Influenza Type B (PCR) (Not Detectd) 10/29/17 10/29/17 10/29/17 Range/Units 11:22 11:22 11:22 WBC (3.8-10.6) k/uL RBC (4.30-5.90) m/uL Hgb (13.0-17.5) gm/dL Hct (39.0-53.0) % MCV (80.0-100.0) fL MCH (25.0-35.0) pg MCHC (31.0-37.0) g/dL RDW (11.5-15.5) % Plt Count (150-450) k/uL Neutrophils % (Manual) % Band Neutrophils % % Lymphocytes % (Manual) % Monocytes % (Manual) % Basophils % (Manual) % Myelocytes % % Neutrophils # (Manual) (1.3-7.7) k/uL Lymphocytes # (Manual) (1.0-4.8) k/uL Monocytes # (Manual) (0-1.0) k/uL Basophils # (Manual) (0-0.2) k/uL Myelocytes # (Manual) (0) k/uL Nucleated RBCs (0-0) /100 WBC Manual Slide Review Toxic Granulation PT 10.1 (9.0-12.0) sec INR 1.0 (<1.2) APTT 25.9 (22.0-30.0) sec D-Dimer 0.41 (<0.60) mg/L FEU Sodium (137-145) mmol/L Potassium (3.5-5.1) mmol/L Chloride (98-107) mmol/L Carbon Dioxide (22-30) mmol/L Anion Gap mmol/L BUN (9-20) mg/dL Creatinine (0.66-1.25) mg/dL Est GFR (MDRD) Af Amer (>60 ml/min/1.73 sqM) Est GFR (MDRD) Non-Af (>60 ml/min/1.73 sqM) Glucose (74-99) mg/dL Calcium (8.4-10.2) mg/dL Magnesium (1.6-2.3) mg/dL Total Bilirubin (0.2-1.3) mg/dL AST (17-59) U/L ALT (21-72) U/L Alkaline Phosphatase (38-126) U/L Total Creatine Kinase (55-170) U/L CK-MB (CK-2) (0.0-2.4) ng/mL CK-MB (CK-2) Rel Index Troponin I (0.000-0.034) ng/mL NT-Pro-B Natriuret Pep 47 pg/mL Total Protein (6.3-8.2) g/dL Albumin (3.5-5.0) g/dL Influenza Type A RNA Not Detected (Not Detectd) Influenza Type B (PCR) Not Detected (Not Detectd) - Radiology Data Radiology results: report reviewed (I did review the imaging and reports no acute findings.), image reviewed Critical Care Time Critical Care Time: Yes Critical Care Time: 36 minutes of critical care time includes initial presentation with monitoring the EMS run and discussed with paramedics history physical labs x-rays multiple re-evaluations the patient discussed with the patient regarding the findings discussed with the beta physician admission orders and documentation of the above. Disposition Clinical Impression: Acute exacerbation of chronic obstructive airways disease, Adult respiratory distress syndrome Disposition: ADMITTED IP TO THIS HOSP Condition: Stable Referrals: Minesh Watkins MD [Primary Care Provider] - 1-2 days
[2017-10-29 11:43] LABS: ALT 33 U/L (21-72); AST 28 U/L (17-59); Albumin 4.3 g/dL (3.5-5.0); Alkaline Phosphatase 58 U/L (38-126); Anion Gap 13 mmol/L; Blood Urea Nitrogen 21 mg/dL (9-20); Calcium 9.6 mg/dL (8.4-10.2); Carbon Dioxide 25 mmol/L (22-30); Chloride 101 mmol/L (98-107); Glucose 107 mg/dL (74-99); HGB 12.8 gm/dL (13.0-17.5); MCH 31.1 pg (25.0-35.0); MCHC 33.8 g/dL (31.0-37.0); MCV 92.1 fL (80.0-100.0); Magnesium 1.9 mg/dL (1.6-2.3); Mean Platelet Volume 6.7; Platelet Count 189 k/uL (150-450); Potassium 4.1 mmol/L (3.5-5.1); RBC 4.13 m/uL (4.30-5.90); RDW 13.7 % (11.5-15.5); Sodium 139 mmol/L (137-145); Total Bilirubin 0.2 mg/dL (0.2-1.3); Total Protein 7.2 g/dL (6.3-8.2); WBC 7.3 k/uL (3.8-10.6)
[2017-10-29 11:50] LABS: D-Dimer 0.41 mg/L FEU (<0.60); Partial Thromboplastin Time 25.9 sec (22.0-30.0); Prothrombin Time 10.1 sec (9.0-12.0)
[2017-10-29 12:01] LABS: Creatine Kinase 122 U/L (55-170)
--- NOTE | 2017-10-29 12:04 | XR ---
EXAMINATION TYPE: XR chest 2V DATE OF EXAM: 10/29/2017 HISTORY: difficulty breathing. REFERENCE: Previous study dated 07/29/2017. FINDINGS: The lungs are clear. Pleural spaces are clear. The heart is not enlarged. IMPRESSION: NO ACUTE INTRATHORACIC ABNORMALITY.
[2017-10-29 12:06] LABS: Band Neutrophils % 12 %; Basophils # (M) 0.07 k/uL (0-0.2); Myelocytes # (M) 0.07 k/uL (0); Myelocytes % 1 %; Neutrophils % (M) 67 %; Nucleated Red Blood Cells 0 /100 WBC (0-0); Total Cells Counted 200; Toxic Granulation Present
[2017-10-29 12:14] LABS: Creatine Kinase MB 1.2 ng/mL (0.0-2.4); Troponin I <0.012 ng/mL (0.000-0.034)
[2017-10-29] MEDS: IPRATROPIUM-ALBUTEROL 3 ML NEB INHALATION SCH ×3 (16:06→23:45)
[2017-10-29 16:41] VITALS: BMI 29.3
[2017-10-29] MEDS: SODIUM CHLORIDE 0.9% 1,000 ML IV SCH (17:41)
[2017-10-29] MEDS: methylPREDNISolone SOD SUCCI 125 MG/2 ML VIAL IV SCH (17:41)
[2017-10-29] MEDS: INSULIN ASPART 100 UNIT/ML 1 ML 10 ML VIAL SQ SCH ×2 (17:41→21:04)
[2017-10-29 17:48] LABS: Glucose,Whole Blood 115 mg/dL (75-99)
[2017-10-29] MEDS: PANTOPRAZOLE 40 MG TABLET PO SCH (17:52)
[2017-10-29] MEDS: ACETAMINOPHEN TAB 325 MG TAB PO PRN (18:27)
[2017-10-29] MEDS: FORMOTEROL FUMARATE 20 MCG/2 ML NEBU INHALATION SCH (19:42)
[2017-10-29 20:51] LABS: Glucose,Whole Blood 139 mg/dL (75-99)
[2017-10-29] MEDS: MIRTAZAPINE 15 MG TAB PO SCH (20:58)
[2017-10-29] MEDS: DULoxetine HCL 60 MG CAPSULE.DR PO SCH (20:58)
[2017-10-29] MEDS: levETIRAcetam 500 MG TAB PO SCH (20:58)
[2017-10-29] MEDS: DIVALPROEX ER 500 MG TAB.ER.24H PO SCH (20:59)
[2017-10-29] MEDS: DIVALPROEX ER 250 MG TAB.ER.24H PO SCH (20:59)
[2017-10-29] MEDS: FAMOTIDINE 20 MG TAB PO SCH (20:59)
[2017-10-30] MEDS: methylPREDNISolone SOD SUCCI 125 MG/2 ML VIAL IV SCH ×5 (00:04→23:04)
[2017-10-30] MEDS: ACETAMINOPHEN TAB 325 MG TAB PO PRN ×3 (00:07→14:03)
[2017-10-30] MEDS: IPRATROPIUM-ALBUTEROL 3 ML NEB INHALATION SCH ×7 (00:29→23:19)
[2017-10-30] MEDS: LEVOTHYROXINE 50 MCG TAB PO SCH (05:49)
[2017-10-30] MEDS: SODIUM CHLORIDE 0.9% 1,000 ML IV SCH ×3 (05:57→23:01)
[2017-10-30 07:32] LABS: Glucose,Whole Blood 164 mg/dL (75-99)
[2017-10-30] MEDS: INSULIN ASPART 100 UNIT/ML 1 ML 10 ML VIAL SQ SCH ×4 (07:44→21:12)
[2017-10-30] MEDS: DIVALPROEX ER 500 MG TAB.ER.24H PO SCH ×2 (07:44→21:11)
[2017-10-30] MEDS: PANTOPRAZOLE 40 MG TABLET PO SCH ×2 (07:44→17:40)
[2017-10-30] MEDS: FAMOTIDINE 20 MG TAB PO SCH ×2 (07:45→21:11)
[2017-10-30] MEDS: DIVALPROEX ER 250 MG TAB.ER.24H PO SCH ×2 (07:45→21:12)
[2017-10-30] MEDS: LISINOPRIL-HCTZ 10-12.5 MG 1 EACH TAB PO SCH (07:46)
[2017-10-30] MEDS: levETIRAcetam 500 MG TAB PO SCH ×2 (07:46→21:11)
[2017-10-30] MEDS: BUDESONIDE 0.5 MG/2 ML NEBU INHALATION SCH ×2 (08:25→19:47)
[2017-10-30] MEDS: FORMOTEROL FUMARATE 20 MCG/2 ML NEBU INHALATION SCH ×2 (08:25→19:47)
--- NOTE | 2017-10-30 08:36 | P.CNPUL ---
History of Present Illness Consult date: 10/29/17 (Late entry note) Reason for consult: dyspnea, cough, chest pain, pneumonia Chief complaint: Cough shortness of breath and wheezing for 1 day duration, History of present illness: Mr. Yogi ivey is well-known to me he is a 46-year-old male with history of chronic persistent asthma and severe COPD has a long-standing history of smoking and nicotine use, patient has been fairly stable on the 3-4 times a day nebulizer treatment at home as well as MDI patient had a fall about a week ago developed some pain and discomfort on the right side with slightly improved however over the period of time but however one day prior to coming into the hospital he started having cough congestion shortness of breath and wheezing patient intermittent sputum production but because of the pain has difficult to bring it up usually is light in color mucoid and frothy, denies any hemoptysis, denies any night sweats fever or chills did have a feverish feeling Review of Systems All systems: negative Constitutional: Reports as per HPI Eyes: bilateral as per HPI Ears: deny: decreased hearing, ear discharge, earache, tinnitus Ears, nose, mouth and throat: Reports as per HPI Cardiovascular: Reports as per HPI, Reports chest pain (Chest pain is mostly pleuritic on the right side of the chest initially was because of the fall but daily because of persistent coughing ) Respiratory: Reports as per HPI, Reports congestion, Reports cough, Reports cough with sputum, Reports dyspnea, Reports pain, Reports pain on inspiration Gastrointestinal: Reports as per HPI Genitourinary: Reports as per HPI Musculoskeletal: Reports as per HPI Integumentary: Reports as per HPI Neurological: Reports as per HPI Psychiatric: Reports as per HPI Endocrine: Reports as per HPI Hematologic/Lymphatic: Reports as per HPI Allergic/Immunologic: Reports as per HPI Past Medical History Past Medical History: COPD, GERD/Reflux, Seizure Disorder History of Any Multi-Drug Resistant Organisms: None Reported Past Surgical History: Cholecystectomy, Orthopedic Surgery Additional Past Surgical History / Comment(s): vasectomy Past Psychological History: Anxiety, Depression Smoking Status: Current every day smoker Past Alcohol Use History: None Reported Past Drug Use History: None Reported - Past Family History Mother Family Medical History: Hypertension Father Additional Family Medical History / Comment(s): lung cancer Medications and Allergies Home Medications Medication Instructions Recorded Confirmed Type Albuterol Nebulized [Ventolin 2.5 mg INHALATION RT-DAILY 04/04/14 10/29/17 History Nebulized] Divalproex ER [Depakote ER] 250 mg PO BID 04/04/14 10/29/17 History Divalproex Sodium [Depakote ER] 500 mg PO BID 04/04/14 10/29/17 History Multivitamin [Men's Multi-Vitamin] 1 tab PO DAILY 04/04/14 10/29/17 History Omeprazole [PriLOSEC] 20 mg PO AC-BID 10/06/16 10/29/17 History Ranitidine HCl [Zantac] 150 mg PO BID 10/06/16 10/29/17 History levETIRAcetam [Keppra] 1,000 mg PO BID 10/06/16 10/29/17 History Cholecalciferol [Vitamin D3] 1,000 unit PO DAILY 04/21/17 10/29/17 History Arformoterol Tartrate [Brovana] 15 mcg INHALATION RT-BID 07/29/17 10/29/17 History DULoxetine HCL [Cymbalta] 60 mg PO HS 10/29/17 10/29/17 History Levothyroxine Sodium [Synthroid] 50 mcg PO DAILY 10/29/17 10/29/17 History Lisinopril-Hctz 10-12.5 mg 1 tab PO DAILY 10/29/17 10/29/17 History [Zestoretic 10-12.5] Mirtazapine [Remeron] 30 mg PO HS 10/29/17 10/29/17 History Allergies Allergy/AdvReac Type Severity Reaction Status Date / Time hydrocodone [From Vicodin] Allergy Unknown Verified 10/29/17 11:14 naproxen Allergy Unknown Verified 10/29/17 11:14 phenobarbital Allergy Unknown Verified 10/29/17 11:14 Physical Exam Vitals: Vital Signs Temp Pulse Pulse Resp BP BP Pulse Ox 10/30/17 04:43 98 10/30/17 04:32 100 10/30/17 00:35 108 H 10/30/17 00:29 102 H 10/29/17 22:40 97.5 F L 82 16 100/49 95 10/29/17 19:48 108 H 10/29/17 19:38 105 H 10/29/17 16:30 98.2 F 99 22 116/72 97 10/29/17 16:02 97 22 117/73 97 10/29/17 14:49 104 H 10/29/17 14:40 100 10/29/17 13:46 100 20 102/66 97 10/29/17 12:38 111 H 20 115/62 97 10/29/17 12:13 112 H 16 10/29/17 11:10 98.9 F 134 H 24 130/72 97 Intake and Output 10/29/17 10/30/17 10/30/17 22:59 06:59 14:59 Other: # Voids 2 2 # Bowel Movements 0 Weight 65.913 kg - Constitutional General appearance: mild distress, thin - EENT Eyes: EOMI, PERRLA, normal appearance Ears: bilateral: normal - Neck Neck: normal ROM Carotids: bilateral: upstroke normal, bruit absent Thyroid: bilateral: normal size - Respiratory Respiratory: bilateral: diminished, rhonchi, wheezing, prolonged expiration, negative: CTA, dullness, rales, prolonged inspiration - Cardiovascular Rhythm: regular Heart sounds: normal: S1, S2 - Gastrointestinal General gastrointestinal: normal bowel sounds, soft - Integumentary Integumentary: normal, normal turgor - Neurologic Neurologic: CNII-XII intact - Musculoskeletal Musculoskeletal: gait normal, strength equal bilaterally - Psychiatric Psychiatric: A&O x's 3, appropriate affect, intact judgment & insight Results - Laboratory Findings CBC and BMP: 10/29/17 11:22 10/29/17 11:22 PT/INR, D-dimer PT 10.1 sec (9.0-12.0) 10/29/17 11:22 INR 1.0 (<1.2) 10/29/17 11:22 D-Dimer 0.41 mg/L FEU (<0.60) 10/29/17 11:22 Abnormal lab findings: Abnormal Labs 10/29/17 10/29/17 10/29/17 11:22 11:22 17:20 RBC 4.13 L Hgb 12.8 L Hct 38.0 L Lymphocytes # (Manual) 0.80 L Myelocytes # (Manual) 0.07 H BUN 21 H Glucose 107 H POC Glucose (mg/dL) 115 H 10/29/17 10/30/17 20:47 07:18 RBC Hgb Hct Lymphocytes # (Manual) Myelocytes # (Manual) BUN Glucose POC Glucose (mg/dL) 139 H 164 H - Diagnostic Findings Chest x-ray: report reviewed, image reviewed (No obvious infiltrates are noted) Assessment and Plan Assessment: Right-sided musculoskeletal chest pain related to fall now as well as related to acute COPD exacerbation Acute COPD exacerbation Severe COPD along with chronic persistent asthma Mood disorder depression gerd Plan: Agri with breathing treatments IV steroids deep breathing exercises incentive spirometry, resume home medications Will observe off of antibiotics will reassess in the morning with further recommendations pending, if no significant improvement is noted consider adding antibiotics and obtaining rib view x-rays we'll follow closely Time with Patient: Greater than 30
--- NOTE | 2017-10-30 08:42 | P.PN ---
Subjective Progress Note Date: 10/30/17 Principal diagnosis: Right-sided chest pain, acute COPD exacerbation, tracheobronchitis 10/30/2017, patient seen and evaluated examined during the rounds he continued to have right-sided pleuritic chest pain and shortness of breath and wheezing he has reproducible tenderness present infero-posterior lateral aspect of the right thoracic wall moderate gets worse with coughing and deep breathing exercise, patient does feel congested but and able to bring sputum up, he has been tolerating breathing treatments fairly well including IV steroids has been resumed already on his home medications Mr. Yogi ivey is well-known to me he is a 46-year-old male with history of chronic persistent asthma and severe COPD has a long-standing history of smoking and nicotine use, patient has been fairly stable on the 3-4 times a day nebulizer treatment at home as well as MDI patient had a fall about a week ago developed some pain and discomfort on the right side with slightly improved however over the period of time but however one day prior to coming into the hospital he started having cough congestion shortness of breath and wheezing patient intermittent sputum production but because of the pain has difficult to bring it up usually is light in color mucoid and frothy, denies any hemoptysis, denies any night sweats fever or chills did have a feverish feeling Objective - Vital Signs Vital signs: Vital Signs Temp 97.5 F L 10/29/17 22:40 Pulse 88 10/30/17 08:28 Resp 16 10/29/17 22:40 BP 100/49 10/29/17 22:40 Pulse Ox 95 10/30/17 08:28 Intake & Output 10/29/17 10/30/17 10/30/17 18:59 06:59 18:59 Weight 65.913 kg Other: # Voids 2 # Bowel Movements 0 - Exam Constitutional General appearance: mild distress, thin - EENT Eyes: EOMI, PERRLA, normal appearance Ears: bilateral: normal - Neck Neck: normal ROM Carotids: bilateral: upstroke normal, bruit absent Thyroid: bilateral: normal size - Respiratory Respiratory: bilateral: diminished, rhonchi, wheezing, prolonged expiration, negative: CTA, dullness, rales, prolonged inspiration, noted reproducible tenderness is present on the inferior part of the posterior lateral thoracic wall on the right side - Cardiovascular Rhythm: regular Heart sounds: normal: S1, S2 - Gastrointestinal General gastrointestinal: normal bowel sounds, soft - Integumentary Integumentary: normal, normal turgor - Neurologic Neurologic: CNII-XII intact - Musculoskeletal Musculoskeletal: gait normal, strength equal bilaterally - Psychiatric Psychiatric: A&O x's 3, appropriate affect, intact judgment & insight - Labs CBC & Chem 7: 10/29/17 11:22 10/29/17 11:22 Labs: Abnormal Lab Results - Last 24 Hours (Table) 10/29/17 10/29/17 10/29/17 Range/Units 11:22 11:22 17:20 RBC 4.13 L (4.30-5.90) m/uL Hgb 12.8 L (13.0-17.5) gm/dL Hct 38.0 L (39.0-53.0) % Lymphocytes # (Manual) 0.80 L (1.0-4.8) k/uL Myelocytes # (Manual) 0.07 H (0) k/uL BUN 21 H (9-20) mg/dL Glucose 107 H (74-99) mg/dL POC Glucose (mg/dL) 115 H (75-99) mg/dL 10/29/17 10/30/17 Range/Units 20:47 07:18 RBC (4.30-5.90) m/uL Hgb (13.0-17.5) gm/dL Hct (39.0-53.0) % Lymphocytes # (Manual) (1.0-4.8) k/uL Myelocytes # (Manual) (0) k/uL BUN (9-20) mg/dL Glucose (74-99) mg/dL POC Glucose (mg/dL) 139 H 164 H (75-99) mg/dL Assessment and Plan Assessment: Right-sided musculoskeletal chest pain related to fall now as well as related to acute COPD exacerbation Acute COPD exacerbation Severe COPD along with chronic persistent asthma Mood disorder depression gerd Plan: Agri with breathing treatments IV steroids deep breathing exercises incentive spirometry, resume home medications Will obtain a chest x-ray repeat along with the housing liaison view on the right side also initiate patient on antibiotics, will reassess in with further recommendations pending, if no significant improvement is noted consider adding antibiotics and obtaining rib view x-rays we'll follow closely Time with Patient: Greater than 30
[2017-10-30] MEDS: cefTRIAXone IN SWFI 1,000 MG/10 ML SYRINGE IVP SCH (10:39)
--- NOTE | 2017-10-30 10:48 | XR ---
EXAMINATION TYPE: XR chest 2V DATE OF EXAM: 10/30/2017 HISTORY: pneumonia. REFERENCE: Previous study dated 10/29/2017. FINDINGS: The lungs are clear. Pleural spaces are clear. Heart size is normal. IMPRESSION: NO ACTIVE INTRATHORACIC DISEASE.
[2017-10-30] MEDS: CHOLECALCIFEROL 1,000 UNIT TAB PO SCH (12:33)
[2017-10-30] MEDS: MULTIVITAMINS, THERA 1 EACH TAB PO SCH (12:33)
[2017-10-30 13:11] LABS: Glucose,Whole Blood 187 mg/dL (75-99)
--- NOTE | 2017-10-30 14:45 | P.HPIM ---
History of Present Illness H&P Date: 10/30/17 Yogi Allison is a 46-year-old male, well known to my practice with history of chronic persistent asthma and severe COPD and history of smoking, who presented to [facility] emergency room with a chief complaint of cough and right sided chest pain. Patient states that his symptoms started a few days ago he was having cough and worsening shortness of breath. On the day of admission he started having right sided chest. He denies any fever or chills denies any hemoptysis. Past Medical History Past Medical History: COPD, GERD/Reflux, Seizure Disorder History of Any Multi-Drug Resistant Organisms: None Reported Past Surgical History: Cholecystectomy, Orthopedic Surgery Additional Past Surgical History / Comment(s): vasectomy Past Psychological History: Anxiety, Depression Smoking Status: Current every day smoker Past Alcohol Use History: None Reported Past Drug Use History: None Reported - Past Family History Mother Family Medical History: Hypertension Father Additional Family Medical History / Comment(s): lung cancer Medications and Allergies Home Medications Medication Instructions Recorded Confirmed Type Albuterol Nebulized [Ventolin 2.5 mg INHALATION RT-DAILY 04/04/14 10/29/17 History Nebulized] Divalproex ER [Depakote ER] 250 mg PO BID 04/04/14 10/29/17 History Divalproex Sodium [Depakote ER] 500 mg PO BID 04/04/14 10/29/17 History Multivitamin [Men's Multi-Vitamin] 1 tab PO DAILY 04/04/14 10/29/17 History Omeprazole [PriLOSEC] 20 mg PO AC-BID 10/06/16 10/29/17 History Ranitidine HCl [Zantac] 150 mg PO BID 10/06/16 10/29/17 History levETIRAcetam [Keppra] 1,000 mg PO BID 10/06/16 10/29/17 History Cholecalciferol [Vitamin D3] 1,000 unit PO DAILY 04/21/17 10/29/17 History Arformoterol Tartrate [Brovana] 15 mcg INHALATION RT-BID 07/29/17 10/29/17 History DULoxetine HCL [Cymbalta] 60 mg PO HS 10/29/17 10/29/17 History Levothyroxine Sodium [Synthroid] 50 mcg PO DAILY 10/29/17 10/29/17 History Lisinopril-Hctz 10-12.5 mg 1 tab PO DAILY 10/29/17 10/29/17 History [Zestoretic 10-12.5] Mirtazapine [Remeron] 30 mg PO HS 10/29/17 10/29/17 History Allergies Allergy/AdvReac Type Severity Reaction Status Date / Time hydrocodone [From Vicodin] Allergy Unknown Verified 10/29/17 11:14 naproxen Allergy Unknown Verified 10/29/17 11:14 phenobarbital Allergy Unknown Verified 10/29/17 11:14 Physical Exam Vitals: Vital Signs Temp Pulse Pulse Resp BP BP Pulse Ox 10/30/17 11:46 98 10/30/17 11:36 104 H 10/30/17 08:47 100 10/30/17 08:39 96 10/30/17 08:38 96 10/30/17 08:28 88 95 10/30/17 07:00 96.6 F L 85 16 115/66 94 L 10/30/17 04:43 98 10/30/17 04:32 100 10/30/17 00:35 108 H 10/30/17 00:29 102 H 10/29/17 22:40 97.5 F L 82 16 100/49 95 10/29/17 19:48 108 H 10/29/17 19:38 105 H 10/29/17 16:30 98.2 F 99 22 116/72 97 10/29/17 16:02 97 22 117/73 97 10/29/17 14:49 104 H 10/29/17 14:40 100 Intake and Output 10/29/17 10/30/17 10/30/17 22:59 06:59 14:59 Intake Total 600 Balance 600 Intake: Oral 600 Other: # Voids 2 2 # Bowel Movements 0 Weight 65.913 kg In general patient is alert and oriented 3 in no apparent distress HEENT head normocephalic and atraumatic Neck is supple no JVD no goiter no lymphadenopathy Chest exam reveals diminished lung sounds on the right few scattered rhonchi bilaterally with wheezing Cardiac exam reveals regular heart sounds S1 and S2 no gallops no murmurs Abdomen is soft nontender no organomegaly with normal bowel sounds Extremity exam reveals no edema no cyanosis or clubbing Results CBC & Chem 7: 10/29/17 11:22 10/29/17 11:22 Labs: Abnormal Lab Results - Last 24 Hours (Table) 10/29/17 10/29/17 10/30/17 Range/Units 17:20 20:47 07:18 POC Glucose (mg/dL) 115 H 139 H 164 H (75-99) mg/dL 10/30/17 Range/Units 12:27 POC Glucose (mg/dL) 187 H (75-99) mg/dL Microbiology - Last 24 Hours (Table) 10/29/17 11:22 Blood Culture - Preliminary Blood No Growth after 24 hours Thrombosis Risk Factor Assmnt - Choose All That Apply Any of the Below Risk Factors Present?: Yes Each Factor Represents 1 point: Abnormal pulmonary function (COPD), Age 41-60 years Other Risk Factors: No Thrombosis Risk Factor Assessment Total Risk Factor Score: 2 Thrombosis Risk Factor Assessment Level: Low Risk Assessment and Plan Plan: #1 right sided chest pain with tenderness to palpation to the area likely related to rib contusion due to cough no evidence of rib fracture on chest x- ray twice #2 acute purulent bronchitis no evidence of pneumonia on chest x-ray, maintained on IV Rocephin #3 acute exacerbation of chronic obstructive pulmonary disease patient was started on IV Solu-Medrol and inhaled bronchodilators #4 underlying history of severe COPD with chronic persistent asthma #5 underlying history of depression, maintained on Remeron #6 underlying history of gastroesophageal reflux disease #7 underlying history of seizure disorder maintained on Keppra #8 underlying history of hypothyroidism maintained on Synthroid #9 underlying history of hypertension At this time patient is maintained on IV steroids and IV antibiotics If chest pain does not improve will consider checking bone scan to rule out occult rib fracture Continue was current management otherwise
[2017-10-30] MEDS: guaiFENesin 600 MG TABLET.ER PO SCH (16:30)
[2017-10-30 17:30] LABS: Glucose,Whole Blood 129 mg/dL (75-99)
[2017-10-30] MEDS: MEPERIDINE 50 MG/ML SYRINGE IVP PRN ×2 (18:30→22:59)
[2017-10-30 21:02] LABS: Glucose,Whole Blood 148 mg/dL (75-99)
[2017-10-30] MEDS: DULoxetine HCL 60 MG CAPSULE.DR PO SCH (21:11)
[2017-10-30] MEDS: MIRTAZAPINE 15 MG TAB PO SCH (21:11)
[2017-10-31] MEDS ORDERED: guaiFENesin SYRUP 100MG/5ML 200 MG/10 ML CUP PO PRN (02:19)
[2017-10-31] MEDS: MEPERIDINE 50 MG/ML SYRINGE IVP PRN ×4 (02:45→21:33)
[2017-10-31] MEDS: IPRATROPIUM-ALBUTEROL 3 ML NEB INHALATION SCH ×5 (03:20→21:11)
[2017-10-31] MEDS: methylPREDNISolone SOD SUCCI 125 MG/2 ML VIAL IV SCH ×3 (06:10→17:48)
[2017-10-31] MEDS: LEVOTHYROXINE 50 MCG TAB PO SCH (06:10)
[2017-10-31] MEDS: BUDESONIDE 0.5 MG/2 ML NEBU INHALATION SCH ×2 (07:01→21:10)
[2017-10-31] MEDS: FORMOTEROL FUMARATE 20 MCG/2 ML NEBU INHALATION SCH ×2 (07:02→21:11)
[2017-10-31 07:35] LABS: Glucose,Whole Blood 142 mg/dL (75-99)
[2017-10-31] MEDS: SODIUM CHLORIDE 0.9% 1,000 ML IV SCH (08:16)
[2017-10-31] MEDS: guaiFENesin 600 MG TABLET.ER PO SCH ×2 (08:16→20:26)
[2017-10-31] MEDS: FAMOTIDINE 20 MG TAB PO SCH ×2 (08:16→20:26)
[2017-10-31] MEDS: LISINOPRIL-HCTZ 10-12.5 MG 1 EACH TAB PO SCH (08:16)
[2017-10-31] MEDS: cefTRIAXone IN SWFI 1,000 MG/10 ML SYRINGE IVP SCH (08:16)
[2017-10-31] MEDS: levETIRAcetam 500 MG TAB PO SCH ×2 (08:16→20:26)
[2017-10-31] MEDS: DIVALPROEX ER 500 MG TAB.ER.24H PO SCH ×2 (08:16→20:26)
[2017-10-31] MEDS: DIVALPROEX ER 250 MG TAB.ER.24H PO SCH ×2 (08:16→20:26)
[2017-10-31] MEDS: INSULIN ASPART 100 UNIT/ML 1 ML 10 ML VIAL SQ SCH ×4 (08:17→21:34)
[2017-10-31] MEDS: PANTOPRAZOLE 40 MG TABLET PO SCH ×2 (08:18→17:48)
[2017-10-31 09:16] LABS: Basophils % (A) 0 %; Eosinophils % (A) 0 %; HCT 36.6 % (39.0-53.0); Lymphocytes # (A) 0.6 k/uL (1.0-4.8); Lymphocytes % (A) 4 %; MCH 31.1 pg (25.0-35.0); MCHC 32.9 g/dL (31.0-37.0); MCV 94.6 fL (80.0-100.0); Mean Platelet Volume 6.9; Monocytes # (A) 0.7 k/uL (0-1.0); Monocytes % (A) 5 %; Neutrophils # (A) 12.6 k/uL (1.3-7.7); Neutrophils % (A) 90 %; Platelet Count 215 k/uL (150-450); RBC 3.87 m/uL (4.30-5.90); RDW 13.1 % (11.5-15.5)
[2017-10-31 09:49] LABS: ALT 25 U/L (21-72); AST 25 U/L (17-59); Alkaline Phosphatase 52 U/L (38-126); Anion Gap 16 mmol/L; Blood Urea Nitrogen 21 mg/dL (9-20); Calcium 9.7 mg/dL (8.4-10.2); Carbon Dioxide 23 mmol/L (22-30); Chloride 105 mmol/L (98-107); Glucose 124 mg/dL (74-99); Potassium 4.3 mmol/L (3.5-5.1); Sodium 144 mmol/L (137-145); Total Bilirubin 0.2 mg/dL (0.2-1.3)
[2017-10-31] MEDS: MULTIVITAMINS, THERA 1 EACH TAB PO SCH (11:26)
[2017-10-31] MEDS: CHOLECALCIFEROL 1,000 UNIT TAB PO SCH (11:26)
[2017-10-31] MEDS: Acetaminophen-Codeine 300-30mg TAB PO PRN ×2 (11:26→21:34)
--- NOTE | 2017-10-31 11:43 | P.PN ---
Subjective Progress Note Date: 10/31/17 Yogi Allison is a 46-year-old male, well known to my practice with history of chronic persistent asthma and severe COPD and history of smoking, who presented to [facility] emergency room with a chief complaint of cough and right sided chest pain. Patient states that his symptoms started a few days ago he was having cough and worsening shortness of breath. On the day of admission he started having right sided chest. He denies any fever or chills denies any hemoptysis. 10/31/2017 patient still complaining of cough. It's nonproductive. He gets into coughing jags for about 5 minutes. Still having some shortness of breath with ambulating as well as during the coughing episodes. Patient is still complaining of right-sided rib pain. Pain medications have been adjusted he denies any codeine ALLERGY. He'll be given Tylenol with codeine which she is reports having in the past with no problems. Patient denies any nausea or vomiting. Denies any bowel movement changes or urinary symptoms. Objective - Vital Signs Vital signs: Vital Signs Temp 97.3 F L 10/31/17 07:00 Pulse 94 10/31/17 11:19 Resp 16 10/31/17 11:19 BP 129/76 10/31/17 07:00 Pulse Ox 96 10/31/17 07:02 Intake & Output 10/30/17 10/31/17 10/31/17 18:59 06:59 18:59 Intake Total 600 Output Total 900 Balance 600 -900 Weight 65.913 kg Intake: Oral 600 Output: Urine 900 Other: # Voids 2 2 # Bowel Movements 0 - Exam Head normocephalic Neck supple Lungs tight with minimal air movement use of the sensory muscles while talking Heart regular rate and rhythm S1-S2, no rub or gallop Abdomen is soft nontender nondistended positive bowel sounds no hepatosplenomegaly Extremities no edema Neuro alert and orientated to 3 - Labs CBC & Chem 7: 10/31/17 09:00 10/31/17 09:00 Labs: Abnormal Lab Results - Last 24 Hours (Table) 10/30/17 10/30/17 10/30/17 Range/Units 12:27 17:10 20:39 WBC (3.8-10.6) k/uL RBC (4.30-5.90) m/uL Hgb (13.0-17.5) gm/dL Hct (39.0-53.0) % Neutrophils # (1.3-7.7) k/uL Lymphocytes # (1.0-4.8) k/uL BUN (9-20) mg/dL Glucose (74-99) mg/dL POC Glucose (mg/dL) 187 H 129 H 148 H (75-99) mg/dL 10/31/17 10/31/17 10/31/17 Range/Units 07:33 09:00 09:00 WBC 14.0 H (3.8-10.6) k/uL RBC 3.87 L (4.30-5.90) m/uL Hgb 12.0 L (13.0-17.5) gm/dL Hct 36.6 L (39.0-53.0) % Neutrophils # 12.6 H (1.3-7.7) k/uL Lymphocytes # 0.6 L (1.0-4.8) k/uL BUN 21 H (9-20) mg/dL Glucose 124 H (74-99) mg/dL POC Glucose (mg/dL) 142 H (75-99) mg/dL Microbiology - Last 24 Hours (Table) 10/29/17 11:22 Blood Culture - Preliminary Blood No Growth after 24 hours Assessment and Plan Assessment: #1 right sided chest pain with tenderness to palpation to the area likely related to rib contusion due to cough with check of right-sided rib x-ray. We' ll add Tylenol with codeine to help with pain #2 acute purulent bronchitis no evidence of pneumonia on chest x-ray, maintained on IV Rocephin. Patient still complaining of severe cough. We'll await pulmonary recommendations about possible cough syrup #3 acute exacerbation of chronic obstructive pulmonary disease patient was started on IV Solu-Medrol and inhaled bronchodilators #4 underlying history of severe COPD with chronic persistent asthma #5 underlying history of depression, maintained on Remeron #6 underlying history of gastroesophageal reflux disease #7 underlying history of seizure disorder maintained on Keppra #8 underlying history of hypothyroidism maintained on Synthroid #9 underlying history of hypertension DVT prophylaxis Lovenox and GI prophylaxis Pepcid I performed an examination of the patient and discussed their management with the physician Vegetable Handler. I have reviewed the Physician Vegetable Handler's notes and agree with the documented findings and plan of care
--- NOTE | 2017-10-31 11:46 | P.PN ---
Subjective Progress Note Date: 10/31/17 Principal diagnosis: Right-sided chest pain, acute COPD exacerbation, tracheobronchitis 10/31/2017, patient seen eval reexamined during the rounds is still short of breath but continued to have episodes of wheezing cough and congestion, severity has improved however to some extent, new to have episodes of chest pain which are pleuritic in nature with deep breathing as well as coughing patient does have reproducible tenderness in the right lower thoracic wall, chest x-rays pending scheduled for tomorrow 10/30/2017, patient seen and evaluated examined during the rounds he continued to have right-sided pleuritic chest pain and shortness of breath and wheezing he has reproducible tenderness present infero-posterior lateral aspect of the right thoracic wall moderate gets worse with coughing and deep breathing exercise, patient does feel congested but and able to bring sputum up, he has been tolerating breathing treatments fairly well including IV steroids has been resumed already on his home medications Mr. Yogi ivey is well-known to me he is a 46-year-old male with history of chronic persistent asthma and severe COPD has a long-standing history of smoking and nicotine use, patient has been fairly stable on the 3-4 times a day nebulizer treatment at home as well as MDI patient had a fall about a week ago developed some pain and discomfort on the right side with slightly improved however over the period of time but however one day prior to coming into the hospital he started having cough congestion shortness of breath and wheezing patient intermittent sputum production but because of the pain has difficult to bring it up usually is light in color mucoid and frothy, denies any hemoptysis, denies any night sweats fever or chills did have a feverish feeling Objective - Vital Signs Vital signs: Vital Signs Temp 97.3 F L 10/31/17 07:00 Pulse 99 10/31/17 11:29 Resp 16 10/31/17 11:29 BP 129/76 10/31/17 07:00 Pulse Ox 96 10/31/17 07:02 Intake & Output 10/30/17 10/31/17 10/31/17 18:59 06:59 18:59 Intake Total 600 Output Total 900 Balance 600 -900 Weight 65.913 kg Intake: Oral 600 Output: Urine 900 Other: # Voids 2 2 # Bowel Movements 0 - Exam Constitutional General appearance: mild distress, thin - EENT Eyes: EOMI, PERRLA, normal appearance Ears: bilateral: normal - Neck Neck: normal ROM Carotids: bilateral: upstroke normal, bruit absent Thyroid: bilateral: normal size - Respiratory Respiratory: bilateral: diminished, rhonchi, wheezing, prolonged expiration, negative: CTA, dullness, rales, prolonged inspiration, noted reproducible tenderness is present on the inferior part of the posterior lateral thoracic wall on the right side, Slightly improved compared to yesterday - Cardiovascular Rhythm: regular Heart sounds: normal: S1, S2 - Gastrointestinal General gastrointestinal: normal bowel sounds, soft - Integumentary Integumentary: normal, normal turgor - Neurologic Neurologic: CNII-XII intact - Musculoskeletal Musculoskeletal: gait normal, strength equal bilaterally - Psychiatric Psychiatric: A&O x's 3, appropriate affect, intact judgment & insight - Labs CBC & Chem 7: 10/31/17 09:00 10/31/17 09:00 Labs: Abnormal Lab Results - Last 24 Hours (Table) 10/30/17 10/30/17 10/30/17 Range/Units 12:27 17:10 20:39 WBC (3.8-10.6) k/uL RBC (4.30-5.90) m/uL Hgb (13.0-17.5) gm/dL Hct (39.0-53.0) % Neutrophils # (1.3-7.7) k/uL Lymphocytes # (1.0-4.8) k/uL BUN (9-20) mg/dL Glucose (74-99) mg/dL POC Glucose (mg/dL) 187 H 129 H 148 H (75-99) mg/dL 10/31/17 10/31/17 10/31/17 Range/Units 07:33 09:00 09:00 WBC 14.0 H (3.8-10.6) k/uL RBC 3.87 L (4.30-5.90) m/uL Hgb 12.0 L (13.0-17.5) gm/dL Hct 36.6 L (39.0-53.0) % Neutrophils # 12.6 H (1.3-7.7) k/uL Lymphocytes # 0.6 L (1.0-4.8) k/uL BUN 21 H (9-20) mg/dL Glucose 124 H (74-99) mg/dL POC Glucose (mg/dL) 142 H (75-99) mg/dL Microbiology - Last 24 Hours (Table) 10/29/17 11:22 Blood Culture - Preliminary Blood No Growth after 24 hours Assessment and Plan Assessment: Right-sided musculoskeletal chest pain related to fall now as well as related to acute COPD exacerbation Acute COPD exacerbation Severe COPD along with chronic persistent asthma Mood disorder depression gerd Plan: Agri with breathing treatments IV steroids deep breathing exercises incentive spirometry, resume home medications Will obtain a chest x-ray repeat along with the director community center view on the right side also initiate patient on antibiotics, will reassess in with further recommendations pending, continue double antibiotics along with IV steroids breathing treatments awaiting rib view x-rays we'll follow closely Time with Patient: Greater than 30
[2017-10-31 12:01] LABS: Glucose,Whole Blood 177 mg/dL (75-99)
--- NOTE | 2017-10-31 15:05 | XR ---
EXAMINATION TYPE: XR ribs RT DATE OF EXAM: 10/31/2017 COMPARISON: 10/30/2017 HISTORY: 46-year-old male right-sided rib pain after fall 3 days ago TECHNIQUE: 4 views FINDINGS: There is a nondisplaced fracture of the sixth lateral, anterolateral right rib. Visualized right hemithorax appears clear. Cholecystectomy clips. IMPRESSION: Nondisplaced fracture lateral, anterolateral right sixth rib.
[2017-10-31 17:39] LABS: Glucose,Whole Blood 149 mg/dL (75-99)
[2017-10-31] MEDS: guaiFENesin SYRUP 100MG/5ML 200 MG/10 ML CUP PO PRN (18:55)
[2017-10-31] MEDS: DULoxetine HCL 60 MG CAPSULE.DR PO SCH (20:26)
[2017-10-31] MEDS: MIRTAZAPINE 15 MG TAB PO SCH (20:26)
[2017-10-31 21:04] LABS: Glucose,Whole Blood 160 mg/dL (75-99)
[2017-11-01] MEDS: methylPREDNISolone SOD SUCCI 125 MG/2 ML VIAL IV SCH ×5 (00:06→23:06)
[2017-11-01] MEDS: IPRATROPIUM-ALBUTEROL 3 ML NEB INHALATION SCH ×6 (01:29→19:59)
[2017-11-01] MEDS: LEVOTHYROXINE 50 MCG TAB PO SCH (06:36)
[2017-11-01] MEDS: BUDESONIDE 0.5 MG/2 ML NEBU INHALATION SCH ×2 (06:58→19:58)
[2017-11-01] MEDS: FORMOTEROL FUMARATE 20 MCG/2 ML NEBU INHALATION SCH ×2 (06:59→19:59)
[2017-11-01 07:05] LABS: Glucose,Whole Blood 113 mg/dL (75-99)
[2017-11-01] MEDS: INSULIN ASPART 100 UNIT/ML 1 ML 10 ML VIAL SQ SCH ×4 (07:28→21:39)
[2017-11-01] MEDS: levETIRAcetam 500 MG TAB PO SCH ×2 (07:30→21:44)
[2017-11-01] MEDS: PANTOPRAZOLE 40 MG TABLET PO SCH ×2 (07:30→17:42)
[2017-11-01] MEDS: cefTRIAXone IN SWFI 1,000 MG/10 ML SYRINGE IVP SCH (07:30)
[2017-11-01] MEDS: LISINOPRIL-HCTZ 10-12.5 MG 1 EACH TAB PO SCH (07:30)
[2017-11-01] MEDS: FAMOTIDINE 20 MG TAB PO SCH ×2 (07:31→21:45)
[2017-11-01] MEDS: DIVALPROEX ER 500 MG TAB.ER.24H PO SCH ×2 (07:31→21:45)
[2017-11-01] MEDS: ENOXAPARIN 40 MG/0.4 ML SYRINGE SQ SCH (07:31)
[2017-11-01] MEDS: DIVALPROEX ER 250 MG TAB.ER.24H PO SCH ×2 (07:31→21:45)
[2017-11-01] MEDS: Acetaminophen-Codeine 300-30mg TAB PO PRN ×2 (07:31→21:46)
[2017-11-01] MEDS: guaiFENesin 600 MG TABLET.ER PO SCH ×2 (07:31→21:45)
[2017-11-01] MEDS: guaiFENesin SYRUP 100MG/5ML 200 MG/10 ML CUP PO PRN ×3 (07:32→21:46)
[2017-11-01] MEDS: MEPERIDINE 50 MG/ML SYRINGE IVP PRN ×2 (07:32→21:45)
[2017-11-01] MEDS: DOCUSATE 100 MG CAP PO SCH ×2 (10:38→21:45)
--- NOTE | 2017-11-01 11:22 | P.PN ---
Subjective Progress Note Date: 11/01/17 Yogi Allison is a 46-year-old male, well known to my practice with history of chronic persistent asthma and severe COPD and history of smoking, who presented to [facility] emergency room with a chief complaint of cough and right sided chest pain. Patient states that his symptoms started a few days ago he was having cough and worsening shortness of breath. On the day of admission he started having right sided chest. He denies any fever or chills denies any hemoptysis. 10/31/2017 patient still complaining of cough. It's nonproductive. He gets into coughing jags for about 5 minutes. Still having some shortness of breath with ambulating as well as during the coughing episodes. Patient is still complaining of right-sided rib pain. Pain medications have been adjusted he denies any codeine ALLERGY. He'll be given Tylenol with codeine which she is reports having in the past with no problems. Patient denies any nausea or vomiting. Denies any bowel movement changes or urinary symptoms. 11/01/2017 patient still having some shortness of breath and cough. Reports that he was able to sleep so the night with the cough syrup. Patient's pain is better controlled with the Tylenol with codeine. He denies any nausea or vomiting. Is complaining of some constipation. Denies any burning with urination. Was able to cough up small amount of sputum. We'll check sputum culture Objective - Vital Signs Vital signs: Vital Signs Temp 96.8 F L 11/01/17 07:00 Pulse 86 11/01/17 11:06 Resp 18 11/01/17 07:00 BP 114/73 11/01/17 07:00 Pulse Ox 95 11/01/17 07:01 Intake & Output 10/31/17 11/01/17 11/01/17 18:59 06:59 18:59 Intake Total 1600 Balance 1600 Intake: Oral 1600 Other: # Voids 8 1 - Exam Head normocephalic Neck supple Lungs tight with minimal air movement use of the sensory muscles while talking Heart regular rate and rhythm S1-S2, no rub or gallop Abdomen is soft nontender nondistended positive bowel sounds no hepatosplenomegaly Extremities no edema Neuro alert and orientated to 3 - Labs CBC & Chem 7: 10/31/17 09:00 10/31/17 09:00 Labs: Abnormal Lab Results - Last 24 Hours (Table) 10/31/17 10/31/17 10/31/17 Range/Units 11:55 17:18 21:00 POC Glucose (mg/dL) 177 H 149 H 160 H (75-99) mg/dL 11/01/17 Range/Units 07:02 POC Glucose (mg/dL) 113 H (75-99) mg/dL Microbiology - Last 24 Hours (Table) 10/29/17 11:22 Blood Culture - Preliminary Blood No Growth after 48 hours Assessment and Plan Assessment: #1 right sided chest pain with tenderness to palpation to the area likely related to cough as well as the non-displaced fracture of the right sixth rib. Continue with Tylenol with codeine for pain #2 acute purulent bronchitis no evidence of pneumonia on chest x-ray, maintained on IV Rocephin. Patient still complaining of severe cough. Some improvement with the cough syrup #3 acute exacerbation of chronic obstructive pulmonary disease patient was started on IV Solu-Medrol and inhaled bronchodilators #4 underlying history of severe COPD with chronic persistent asthma #5 underlying history of depression, maintained on Remeron #6 underlying history of gastroesophageal reflux disease #7 underlying history of seizure disorder maintained on Keppra #8 underlying history of hypothyroidism maintained on Synthroid #9 underlying history of hypertension 10. Constipation add Colace 11. Consult physical therapy and increase activity DVT prophylaxis Lovenox and GI prophylaxis Pepcid I performed an examination of the patient and discussed their management with the physician Physical Therapist. I have reviewed the Physician Physical Therapist's notes and agree with the documented findings and plan of care
[2017-11-01 11:42] LABS: Glucose,Whole Blood 170 mg/dL (75-99)
[2017-11-01] MEDS: MULTIVITAMINS, THERA 1 EACH TAB PO SCH (12:02)
[2017-11-01] MEDS: CHOLECALCIFEROL 1,000 UNIT TAB PO SCH (12:02)
[2017-11-01 17:07] LABS: Glucose,Whole Blood 135 mg/dL (75-99)
--- NOTE | 2017-11-01 17:31 | P.PN ---
Subjective Progress Note Date: 11/01/17 Principal diagnosis: Right-sided chest pain, acute COPD exacerbation, tracheobronchitis 11/01/2017, patient seen and evaluated examined and evaluated examined during rounds still very tight congested has cough productive of brownish sputum he gets short of breath on activity and is exertion during deep breathing he does develop severe and significant wheezing scattered developed same when he is somewhat anxious patient remains on breathing treatments steroids and antibiotics given the ALLERGY of codeine with history of some seizures we'll continue to avoid codeine, for chest pain his been getting Tylenol No. 3 with some relief he is not ready for discharge 10/31/2017, patient seen eval reexamined during the rounds is still short of breath but continued to have episodes of wheezing cough and congestion, severity has improved however to some extent, new to have episodes of chest pain which are pleuritic in nature with deep breathing as well as coughing patient does have reproducible tenderness in the right lower thoracic wall, chest x-rays pending scheduled for tomorrow 10/30/2017, patient seen and evaluated examined during the rounds he continued to have right-sided pleuritic chest pain and shortness of breath and wheezing he has reproducible tenderness present infero-posterior lateral aspect of the right thoracic wall moderate gets worse with coughing and deep breathing exercise, patient does feel congested but and able to bring sputum up, he has been tolerating breathing treatments fairly well including IV steroids has been resumed already on his home medications Mr. Yogi ivey is well-known to me he is a 46-year-old male with history of chronic persistent asthma and severe COPD has a long-standing history of smoking and nicotine use, patient has been fairly stable on the 3-4 times a day nebulizer treatment at home as well as MDI patient had a fall about a week ago developed some pain and discomfort on the right side with slightly improved however over the period of time but however one day prior to coming into the hospital he started having cough congestion shortness of breath and wheezing patient intermittent sputum production but because of the pain has difficult to bring it up usually is light in color mucoid and frothy, denies any hemoptysis, denies any night sweats fever or chills did have a feverish feeling Objective - Vital Signs Vital signs: Vital Signs Temp 96.7 F L 11/01/17 15:00 Pulse 84 11/01/17 16:01 Resp 20 11/01/17 15:00 BP 124/74 11/01/17 15:00 Pulse Ox 95 11/01/17 15:50 Intake & Output 10/31/17 11/01/17 11/01/17 18:59 06:59 18:59 Intake Total 1600 480 Balance 1600 480 Intake: Oral 1600 480 Other: # Voids 8 1 2 - Exam Constitutional General appearance: mild distress, thin - EENT Eyes: EOMI, PERRLA, normal appearance Ears: bilateral: normal - Neck Neck: normal ROM Carotids: bilateral: upstroke normal, bruit absent Thyroid: bilateral: normal size - Respiratory Respiratory: bilateral: diminished, rhonchi, wheezing, prolonged expiration, negative: CTA, dullness, rales, prolonged inspiration, noted reproducible tenderness is present on the inferior part of the posterior lateral thoracic wall on the right side, Slightly improved compared to yesterday - Cardiovascular Rhythm: regular Heart sounds: normal: S1, S2 - Gastrointestinal General gastrointestinal: normal bowel sounds, soft - Integumentary Integumentary: normal, normal turgor - Neurologic Neurologic: CNII-XII intact - Musculoskeletal Musculoskeletal: gait normal, strength equal bilaterally - Psychiatric Psychiatric: A&O x's 3, appropriate affect, intact judgment & insight - Labs CBC & Chem 7: 10/31/17 09:00 10/31/17 09:00 Labs: Abnormal Lab Results - Last 24 Hours (Table) 10/31/17 10/31/17 11/01/17 Range/Units 17:18 21:00 07:02 POC Glucose (mg/dL) 149 H 160 H 113 H (75-99) mg/dL 11/01/17 11/01/17 Range/Units 11:31 17:04 POC Glucose (mg/dL) 170 H 135 H (75-99) mg/dL Microbiology - Last 24 Hours (Table) 10/29/17 11:22 Blood Culture - Preliminary Blood No Growth after 72 hours Assessment and Plan Assessment: Right-sided sixth rib fracture nondisplaced Purulent tracheobronchitis Right-sided musculoskeletal chest pain related to fall now as well as related to acute COPD exacerbation spasm Acute COPD exacerbation Severe COPD along with chronic persistent asthma Mood disorder depression gerd History of seizure disorder Plan: Agree with breathing treatments IV steroids deep breathing exercises incentive spirometry, resume home medications Will obtain a chest x-ray repeat Review x-ray ribs view on the right side revealed presence of right-sided sixth rib fracture in the meantime we'll continue patient on antibiotics, will reassess in with further recommendations pending, continue double antibiotics along with IV steroids breathing treatments reviewed rib view x-rays we'll follow closely Time with Patient: Greater than 30
[2017-11-01 20:51] LABS: Glucose,Whole Blood 128 mg/dL (75-99)
[2017-11-01] MEDS: DULoxetine HCL 60 MG CAPSULE.DR PO SCH (21:45)
[2017-11-01] MEDS: MIRTAZAPINE 15 MG TAB PO SCH (21:45)
[2017-11-02] MEDS: IPRATROPIUM-ALBUTEROL 3 ML NEB INHALATION SCH ×7 (00:25→23:55)
[2017-11-02] MEDS ORDERED: ONDANSETRON 4 MG/2 ML VIAL IVP PRN (01:49)
[2017-11-02] MEDS: methylPREDNISolone SOD SUCCI 125 MG/2 ML VIAL IV SCH ×4 (05:43→22:55)
[2017-11-02] MEDS: LEVOTHYROXINE 50 MCG TAB PO SCH (06:27)
[2017-11-02] MEDS: Acetaminophen-Codeine 300-30mg TAB PO PRN ×2 (06:31→20:57)
[2017-11-02] MEDS: MEPERIDINE 50 MG/ML SYRINGE IVP PRN ×4 (06:32→18:31)
[2017-11-02 07:46] LABS: Glucose,Whole Blood 119 mg/dL (75-99)
[2017-11-02] MEDS: BUDESONIDE 0.5 MG/2 ML NEBU INHALATION SCH ×2 (08:16→19:52)
[2017-11-02] MEDS: FORMOTEROL FUMARATE 20 MCG/2 ML NEBU INHALATION SCH ×2 (08:16→19:53)
[2017-11-02] MEDS: INSULIN ASPART 100 UNIT/ML 1 ML 10 ML VIAL SQ SCH ×4 (08:27→21:50)
--- NOTE | 2017-11-02 08:31 | XR ---
EXAMINATION TYPE: XR chest 2V DATE OF EXAM: 11/02/2017 COMPARISON: 10/30/2017 HISTORY: COPD TECHNIQUE: Frontal and lateral views of the chest are obtained. FINDINGS: There is no focal air space opacity, pleural effusion, or pneumothorax seen. The cardiac silhouette size is upper limits of normal. The osseous structures are intact. The previously seen n ondisplaced right rib fracture on the exam of 10/31/2017 is less well visualized without additional ri b views. The previously seen nondisplaced fractures of ribs 2 and 3 on the left have healed in the in terim. Low lung volumes accentuate the pulmonary vasculature. IMPRESSION: No acute cardiopulmonary process.
[2017-11-02] MEDS: ENOXAPARIN 40 MG/0.4 ML SYRINGE SQ SCH (09:11)
[2017-11-02] MEDS: levETIRAcetam 500 MG TAB PO SCH ×2 (09:11→20:54)
[2017-11-02] MEDS: cefTRIAXone IN SWFI 1,000 MG/10 ML SYRINGE IVP SCH (09:11)
[2017-11-02] MEDS: DIVALPROEX ER 500 MG TAB.ER.24H PO SCH ×2 (09:11→20:54)
[2017-11-02] MEDS: DIVALPROEX ER 250 MG TAB.ER.24H PO SCH ×2 (09:12→20:54)
[2017-11-02] MEDS: guaiFENesin 600 MG TABLET.ER PO SCH ×2 (09:12→20:54)
[2017-11-02] MEDS: PANTOPRAZOLE 40 MG TABLET PO SCH ×2 (09:12→18:32)
[2017-11-02] MEDS: LISINOPRIL-HCTZ 10-12.5 MG 1 EACH TAB PO SCH (09:12)
[2017-11-02] MEDS: FAMOTIDINE 20 MG TAB PO SCH ×2 (09:12→20:54)
[2017-11-02] MEDS: DOCUSATE 100 MG CAP PO SCH ×2 (09:13→20:54)
--- NOTE | 2017-11-02 11:50 | P.PN ---
Subjective Progress Note Date: 11/02/17 Yogi Allison is a 46-year-old male, well known to my practice with history of chronic persistent asthma and severe COPD and history of smoking, who presented to [facility] emergency room with a chief complaint of cough and right sided chest pain. Patient states that his symptoms started a few days ago he was having cough and worsening shortness of breath. On the day of admission he started having right sided chest. He denies any fever or chills denies any hemoptysis. 10/31/2017 patient still complaining of cough. It's nonproductive. He gets into coughing jags for about 5 minutes. Still having some shortness of breath with ambulating as well as during the coughing episodes. Patient is still complaining of right-sided rib pain. Pain medications have been adjusted he denies any codeine ALLERGY. He'll be given Tylenol with codeine which she is reports having in the past with no problems. Patient denies any nausea or vomiting. Denies any bowel movement changes or urinary symptoms. 11/01/2017 patient still having some shortness of breath and cough. Reports that he was able to sleep so the night with the cough syrup. Patient's pain is better controlled with the Tylenol with codeine. He denies any nausea or vomiting. Is complaining of some constipation. Denies any burning with urination. Was able to cough up small amount of sputum. We'll check sputum culture on 11/02/2017 patient is still complaining of severe cough and shortness of breath complaining of right sided rib pain Objective - Vital Signs Vital signs: Vital Signs Temp 97.3 F L 11/02/17 07:00 Pulse 80 11/02/17 11:39 Resp 18 11/02/17 09:19 BP 109/71 11/02/17 07:00 Pulse Ox 99 11/02/17 07:00 Intake & Output 11/01/17 11/02/17 11/02/17 18:59 06:59 18:59 Intake Total 1440 Balance 1440 Intake: Oral 1440 Other: Voiding Method Toilet Toilet # Voids 2 3 - Exam Head normocephalic and atraumatic Neck supple, no JVD no goiter and no adeneopathy Lungs tight with minimal air movement use of the sensory muscles while talking Heart regular rate and rhythm S1-S2, no rub or gallop Abdomen is soft nontender nondistended positive bowel sounds no hepatosplenomegaly Extremities no edema Neuro alert and orientated to 3 - Labs CBC & Chem 7: 10/31/17 09:00 10/31/17 09:00 Labs: Abnormal Lab Results - Last 24 Hours (Table) 11/01/17 11/01/17 11/02/17 Range/Units 17:04 20:48 07:10 POC Glucose (mg/dL) 135 H 128 H 119 H (75-99) mg/dL Microbiology - Last 24 Hours (Table) 11/01/17 16:47 Gram Stain - Preliminary Sputum Sputum Culture - Preliminary 10/29/17 11:22 Blood Culture - Preliminary Blood No Growth after 72 hours Assessment and Plan Plan: #1 right sided chest pain with tenderness to palpation to the area likely related to rib contusion due to cough no evidence of rib fracture on chest x- ray twice #2 acute purulent bronchitis no evidence of pneumonia on chest x-ray, maintained on IV Rocephin #3 acute exacerbation of chronic obstructive pulmonary disease patient was started on IV Solu-Medrol and inhaled bronchodilators #4 underlying history of severe COPD with chronic persistent asthma #5 underlying history of depression, maintained on Remeron #6 underlying history of gastroesophageal reflux disease #7 underlying history of seizure disorder maintained on Keppra #8 underlying history of hypothyroidism maintained on Synthroid #9 underlying history of hypertension At this time patient is maintained on IV steroids and IV antibiotics If chest pain does not improve will consider checking bone scan to rule out occult rib fracture Continue was current management otherwise
[2017-11-02 12:09] LABS: Glucose,Whole Blood 103 mg/dL (75-99)
[2017-11-02] MEDS: MULTIVITAMINS, THERA 1 EACH TAB PO SCH (12:43)
[2017-11-02] MEDS: CHOLECALCIFEROL 1,000 UNIT TAB PO SCH (12:43)
--- NOTE | 2017-11-02 14:10 | P.PN ---
Subjective Progress Note Date: 11/02/17 Principal diagnosis: Right-sided chest pain, acute COPD exacerbation, tracheobronchitis 11/02/2017, patient seen eval reexamined during the rounds he is slightly doing better able to get up and move around a little bit he had an episode of emesis last night however he is feeling less nauseous now tolerating by mouth well no other obvious complains of present continued to have right-sided pleuritic chest pain this evening is slightly better with Tylenol No. 3 11/01/2017, patient seen and evaluated examined and evaluated examined during rounds still very tight congested has cough productive of brownish sputum he gets short of breath on activity and is exertion during deep breathing he does develop severe and significant wheezing scattered developed same when he is somewhat anxious patient remains on breathing treatments steroids and antibiotics given the ALLERGY of codeine with history of some seizures we'll continue to avoid codeine, for chest pain his been getting Tylenol No. 3 with some relief he is not ready for discharge 10/31/2017, patient seen eval reexamined during the rounds is still short of breath but continued to have episodes of wheezing cough and congestion, severity has improved however to some extent, new to have episodes of chest pain which are pleuritic in nature with deep breathing as well as coughing patient does have reproducible tenderness in the right lower thoracic wall, chest x-rays pending scheduled for tomorrow 10/30/2017, patient seen and evaluated examined during the rounds he continued to have right-sided pleuritic chest pain and shortness of breath and wheezing he has reproducible tenderness present infero-posterior lateral aspect of the right thoracic wall moderate gets worse with coughing and deep breathing exercise, patient does feel congested but and able to bring sputum up, he has been tolerating breathing treatments fairly well including IV steroids has been resumed already on his home medications Mr. Yogi ivey is well-known to me he is a 46-year-old male with history of chronic persistent asthma and severe COPD has a long-standing history of smoking and nicotine use, patient has been fairly stable on the 3-4 times a day nebulizer treatment at home as well as MDI patient had a fall about a week ago developed some pain and discomfort on the right side with slightly improved however over the period of time but however one day prior to coming into the hospital he started having cough congestion shortness of breath and wheezing patient intermittent sputum production but because of the pain has difficult to bring it up usually is light in color mucoid and frothy, denies any hemoptysis, denies any night sweats fever or chills did have a feverish feeling Objective - Vital Signs Vital signs: Vital Signs Temp 97.3 F L 11/02/17 07:00 Pulse 84 11/02/17 11:52 Resp 18 11/02/17 09:19 BP 109/71 11/02/17 07:00 Pulse Ox 99 11/02/17 07:00 Intake & Output 11/01/17 11/02/17 11/02/17 18:59 06:59 18:59 Intake Total 1440 400 Balance 1440 400 Intake: Oral 1440 400 Other: Voiding Method Toilet Toilet # Voids 2 3 3 - Exam Constitutional General appearance: mild distress, thin - EENT Eyes: EOMI, PERRLA, normal appearance Ears: bilateral: normal - Neck Neck: normal ROM Carotids: bilateral: upstroke normal, bruit absent Thyroid: bilateral: normal size - Respiratory Respiratory: bilateral: diminished, rhonchi, wheezing, prolonged expiration, negative: CTA, dullness, rales, prolonged inspiration, noted reproducible tenderness is present on the inferior part of the posterior lateral thoracic wall on the right side, Slightly improved compared to yesterday - Cardiovascular Rhythm: regular Heart sounds: normal: S1, S2 - Gastrointestinal General gastrointestinal: normal bowel sounds, soft - Integumentary Integumentary: normal, normal turgor - Neurologic Neurologic: CNII-XII intact - Musculoskeletal Musculoskeletal: gait normal, strength equal bilaterally - Psychiatric Psychiatric: A&O x's 3, appropriate affect, intact judgment & insight - Labs CBC & Chem 7: 10/31/17 09:00 10/31/17 09:00 Labs: Abnormal Lab Results - Last 24 Hours (Table) 11/01/17 11/01/17 11/02/17 Range/Units 17:04 20:48 07:10 POC Glucose (mg/dL) 135 H 128 H 119 H (75-99) mg/dL 11/02/17 Range/Units 11:54 POC Glucose (mg/dL) 103 H (75-99) mg/dL Microbiology - Last 24 Hours (Table) 10/29/17 11:22 Blood Culture - Preliminary Blood No Growth after 96 hours 11/01/17 16:47 Gram Stain - Preliminary Sputum Sputum Culture - Preliminary Assessment and Plan Assessment: Right-sided sixth rib fracture nondisplaced Purulent tracheobronchitis Right-sided musculoskeletal chest pain related to fall now as well as related to acute COPD exacerbation spasm Acute COPD exacerbation Severe COPD along with chronic persistent asthma Mood disorder depression gerd History of seizure disorder Plan: Agree with breathing treatments IV steroids deep breathing exercises incentive spirometry, resume home medications Will obtain a chest x-ray repeat Review x-ray ribs view on the right side revealed presence of right-sided sixth rib fracture in the meantime we'll continue patient on antibiotics, will reassess in with further recommendations pending, continue double antibiotics along with IV steroids breathing treatments reviewed rib view x-rays we'll follow closely Time with Patient: Greater than 30
[2017-11-02 16:48] LABS: Glucose,Whole Blood 125 mg/dL (75-99)
[2017-11-02] MEDS: MIRTAZAPINE 15 MG TAB PO SCH (20:54)
[2017-11-02] MEDS: DULoxetine HCL 60 MG CAPSULE.DR PO SCH (20:54)
[2017-11-02 21:38] LABS: Glucose,Whole Blood 115 mg/dL (75-99)
[2017-11-02] MEDS: guaiFENesin SYRUP 100MG/5ML 200 MG/10 ML CUP PO PRN (22:55)
[2017-11-03] MEDS: LEVOTHYROXINE 50 MCG TAB PO SCH (06:32)
[2017-11-03] MEDS: methylPREDNISolone SOD SUCCI 125 MG/2 ML VIAL IV SCH ×3 (06:32→17:55)
[2017-11-03 07:41] LABS: Glucose,Whole Blood 113 mg/dL (75-99)
[2017-11-03 07:59] LABS: Basophils # (A) 0.1 k/uL (0-0.2); Basophils % (A) 1 %; Eosinophils % (A) 0 %; HCT 37.5 % (39.0-53.0); HGB 11.9 gm/dL (13.0-17.5); Lymphocytes # (A) 1.8 k/uL (1.0-4.8); Lymphocytes % (A) 23 %; MCH 30.3 pg (25.0-35.0); MCHC 31.6 g/dL (31.0-37.0); MCV 95.8 fL (80.0-100.0); Mean Platelet Volume 7.6; Monocytes # (A) 0.5 k/uL (0-1.0); Monocytes % (A) 6 %; Neutrophils # (A) 5.3 k/uL (1.3-7.7); Neutrophils % (A) 66 %; Platelet Count 271 k/uL (150-450); RBC 3.92 m/uL (4.30-5.90); RDW 14.1 % (11.5-15.5)
[2017-11-03] MEDS: IPRATROPIUM-ALBUTEROL 3 ML NEB INHALATION SCH ×4 (08:11→19:24)
[2017-11-03] MEDS: FORMOTEROL FUMARATE 20 MCG/2 ML NEBU INHALATION SCH (08:11)
[2017-11-03] MEDS: BUDESONIDE 0.5 MG/2 ML NEBU INHALATION SCH (08:11)
[2017-11-03] MEDS: INSULIN ASPART 100 UNIT/ML 1 ML 10 ML VIAL SQ SCH ×4 (08:11→22:40)
[2017-11-03 08:31] LABS: ALT 65 U/L (21-72); AST 29 U/L (17-59); Albumin 3.9 g/dL (3.5-5.0); Alkaline Phosphatase 52 U/L (38-126); Anion Gap 12 mmol/L; Blood Urea Nitrogen 37 mg/dL (9-20); Calcium 9.5 mg/dL (8.4-10.2); Carbon Dioxide 29 mmol/L (22-30); Chloride 99 mmol/L (98-107); Glucose 109 mg/dL (74-99); Potassium 4.9 mmol/L (3.5-5.1); Sodium 140 mmol/L (137-145); Total Bilirubin 0.4 mg/dL (0.2-1.3); Total Protein 6.8 g/dL (6.3-8.2)
--- NOTE | 2017-11-03 10:30 | P.PN ---
Subjective Progress Note Date: 11/03/17 Yogi Allison is a 46-year-old male, well known to my practice with history of chronic persistent asthma and severe COPD and history of smoking, who presented to [facility] emergency room with a chief complaint of cough and right sided chest pain. Patient states that his symptoms started a few days ago he was having cough and worsening shortness of breath. On the day of admission he started having right sided chest. He denies any fever or chills denies any hemoptysis. 10/31/2017 patient still complaining of cough. It's nonproductive. He gets into coughing jags for about 5 minutes. Still having some shortness of breath with ambulating as well as during the coughing episodes. Patient is still complaining of right-sided rib pain. Pain medications have been adjusted he denies any codeine ALLERGY. He'll be given Tylenol with codeine which she is reports having in the past with no problems. Patient denies any nausea or vomiting. Denies any bowel movement changes or urinary symptoms. 11/01/2017 patient still having some shortness of breath and cough. Reports that he was able to sleep so the night with the cough syrup. Patient's pain is better controlled with the Tylenol with codeine. He denies any nausea or vomiting. Is complaining of some constipation. Denies any burning with urination. Was able to cough up small amount of sputum. We'll check sputum culture 11/03/2017 patient starting to report improvement. He is asking when he'll be discharged home. However, he still has some labored breathing. Cough is improving. And is still having some wheezing. Pain is controlled. He reports having bowel movements. Denies any chest pain. Denies any nausea or vomiting. Denies any burning with urination. Objective - Vital Signs Vital signs: Vital Signs Temp 97.0 F L 11/03/17 07:00 Pulse 73 11/03/17 10:00 Resp 18 11/03/17 10:00 BP 115/79 11/03/17 07:00 Pulse Ox 96 11/03/17 07:00 Intake & Output 11/02/17 11/03/17 11/03/17 18:59 06:59 18:59 Intake Total 650 1000 Output Total 500 Balance 650 1000 -500 Weight 65.913 kg 65.913 kg 65.913 kg Intake: Oral 650 1000 Output: Urine 500 Other: Voiding Method Toilet Toilet Toilet # Voids 3 2 2 # Bowel Movements 0 0 0 - Exam Head normocephalic Neck supple Lungs some improvement in air movement. Still expiratory wheezing noted Heart regular rate and rhythm S1-S2, no rub or gallop Abdomen is soft nontender nondistended positive bowel sounds no hepatosplenomegaly Extremities no edema Neuro alert and orientated to 3 - Labs CBC & Chem 7: 11/03/17 07:20 11/03/17 07:20 Labs: Abnormal Lab Results - Last 24 Hours (Table) 11/02/17 11/02/17 11/02/17 Range/Units 11:54 16:42 21:35 RBC (4.30-5.90) m/uL Hgb (13.0-17.5) gm/dL Hct (39.0-53.0) % BUN (9-20) mg/dL Glucose (74-99) mg/dL POC Glucose (mg/dL) 103 H 125 H 115 H (75-99) mg/dL 11/03/17 11/03/17 11/03/17 Range/Units 07:20 07:20 07:31 RBC 3.92 L (4.30-5.90) m/uL Hgb 11.9 L (13.0-17.5) gm/dL Hct 37.5 L (39.0-53.0) % BUN 37 H (9-20) mg/dL Glucose 109 H (74-99) mg/dL POC Glucose (mg/dL) 113 H (75-99) mg/dL Microbiology - Last 24 Hours (Table) 10/29/17 11:22 Blood Culture - Preliminary Blood No Growth after 96 hours Assessment and Plan Assessment: #1 right sided chest pain with tenderness to palpation to the area likely related to cough as well as the non-displaced fracture of the right sixth rib. Continue with Tylenol with codeine for pain #2 acute purulent bronchitis no evidence of pneumonia on chest x-ray, maintained on IV Rocephin. Patient still complaining of severe cough. Some improvement with the cough syrup #3 acute exacerbation of chronic obstructive pulmonary disease patient was started on IV Solu-Medrol and inhaled bronchodilators #4 underlying history of severe COPD with chronic persistent asthma #5 underlying history of depression, maintained on Remeron #6 underlying history of gastroesophageal reflux disease #7 underlying history of seizure disorder maintained on Keppra #8 underlying history of hypothyroidism maintained on Synthroid #9 underlying history of hypertension 10. Constipation add Colace. Improved 11. Consult physical therapy and increase activity DVT prophylaxis Lovenox and GI prophylaxis Pepcid We'll await further pulmonary service recommendations in regarding to discharge. Encouraged patient to increase activity. I performed an examination of the patient and discussed their management with the physician Double Cut Sawyer. I have reviewed the Physician Double Cut Sawyer's notes and agree with the documented findings and plan of care
[2017-11-03] MEDS: ENOXAPARIN 40 MG/0.4 ML SYRINGE SQ SCH (11:05)
[2017-11-03] MEDS: cefTRIAXone IN SWFI 1,000 MG/10 ML SYRINGE IVP SCH (11:06)
[2017-11-03] MEDS: PANTOPRAZOLE 40 MG TABLET PO SCH ×2 (11:06→17:56)
[2017-11-03] MEDS: DIVALPROEX ER 250 MG TAB.ER.24H PO SCH ×2 (11:06→20:57)
[2017-11-03] MEDS: DIVALPROEX ER 500 MG TAB.ER.24H PO SCH ×2 (11:06→20:57)
[2017-11-03] MEDS: DOCUSATE 100 MG CAP PO SCH ×2 (11:06→20:57)
[2017-11-03] MEDS: LISINOPRIL-HCTZ 10-12.5 MG 1 EACH TAB PO SCH (11:06)
[2017-11-03] MEDS: CHOLECALCIFEROL 1,000 UNIT TAB PO SCH (11:06)
[2017-11-03] MEDS: FAMOTIDINE 20 MG TAB PO SCH (11:07)
[2017-11-03] MEDS: guaiFENesin 600 MG TABLET.ER PO SCH ×2 (11:07→20:56)
[2017-11-03] MEDS: MULTIVITAMINS, THERA 1 EACH TAB PO SCH (11:07)
[2017-11-03] MEDS: levETIRAcetam 500 MG TAB PO SCH ×2 (11:07→20:56)
[2017-11-03 12:05] LABS: Glucose,Whole Blood 205 mg/dL (75-99)
[2017-11-03] MEDS: Acetaminophen-Codeine 300-30mg TAB PO PRN ×2 (13:59→20:59)
--- NOTE | 2017-11-03 15:18 | P.PN ---
Subjective Progress Note Date: 11/03/17 Principal diagnosis: Right-sided chest pain, acute COPD exacerbation, tracheobronchitis 11/03/2017, patient seen and evaluated examined clinically doing slightly better cough congestion is still there but severity is improved right-sided pleuritic chest pain due to fractures 6 through is slightly better under control her Tylenol 3 is able to breathe better hemodynamic status stable its culture results and reports are reviewed as well the blood cultures no growth so far come culture Gram stain and multiple organism was seen Gram stain final ID hours pending aspect may very well be normal respiratory hermelinda 11/02/2017, patient seen eval reexamined during the rounds he is slightly doing better able to get up and move around a little bit he had an episode of emesis last night however he is feeling less nauseous now tolerating by mouth well no other obvious complains of present continued to have right-sided pleuritic chest pain this evening is slightly better with Tylenol No. 3 11/01/2017, patient seen and evaluated examined and evaluated examined during rounds still very tight congested has cough productive of brownish sputum he gets short of breath on activity and is exertion during deep breathing he does develop severe and significant wheezing scattered developed same when he is somewhat anxious patient remains on breathing treatments steroids and antibiotics given the ALLERGY of codeine with history of some seizures we'll continue to avoid codeine, for chest pain his been getting Tylenol No. 3 with some relief he is not ready for discharge 10/31/2017, patient seen eval reexamined during the rounds is still short of breath but continued to have episodes of wheezing cough and congestion, severity has improved however to some extent, new to have episodes of chest pain which are pleuritic in nature with deep breathing as well as coughing patient does have reproducible tenderness in the right lower thoracic wall, chest x-rays pending scheduled for tomorrow 10/30/2017, patient seen and evaluated examined during the rounds he continued to have right-sided pleuritic chest pain and shortness of breath and wheezing he has reproducible tenderness present infero-posterior lateral aspect of the right thoracic wall moderate gets worse with coughing and deep breathing exercise, patient does feel congested but and able to bring sputum up, he has been tolerating breathing treatments fairly well including IV steroids has been resumed already on his home medications Mr. Yogi ivey is well-known to me he is a 46-year-old male with history of chronic persistent asthma and severe COPD has a long-standing history of smoking and nicotine use, patient has been fairly stable on the 3-4 times a day nebulizer treatment at home as well as MDI patient had a fall about a week ago developed some pain and discomfort on the right side with slightly improved however over the period of time but however one day prior to coming into the hospital he started having cough congestion shortness of breath and wheezing patient intermittent sputum production but because of the pain has difficult to bring it up usually is light in color mucoid and frothy, denies any hemoptysis, denies any night sweats fever or chills did have a feverish feeling Objective - Vital Signs Vital signs: Vital Signs Temp 97.0 F L 11/03/17 07:00 Pulse 84 11/03/17 12:03 Resp 18 11/03/17 10:00 BP 115/79 11/03/17 07:00 Pulse Ox 96 11/03/17 07:00 Intake & Output 11/02/17 11/03/17 11/03/17 18:59 06:59 18:59 Intake Total 650 1000 700 Output Total 500 Balance 650 1000 200 Weight 65.913 kg 65.913 kg 65.913 kg Intake: Oral 650 1000 700 Output: Urine 500 Other: Voiding Method Toilet Toilet Toilet # Voids 3 2 2 # Bowel Movements 0 0 2 - Exam Constitutional General appearance: mild distress, thin - EENT Eyes: EOMI, PERRLA, normal appearance Ears: bilateral: normal - Neck Neck: normal ROM Carotids: bilateral: upstroke normal, bruit absent Thyroid: bilateral: normal size - Respiratory Respiratory: bilateral: diminished, rhonchi, wheezing, prolonged expiration, negative: CTA, dullness, rales, prolonged inspiration, noted reproducible tenderness is present on the inferior part of the posterior lateral thoracic wall on the right side, Slightly improved compared to yesterday - Cardiovascular Rhythm: regular Heart sounds: normal: S1, S2 - Gastrointestinal General gastrointestinal: normal bowel sounds, soft - Integumentary Integumentary: normal, normal turgor - Neurologic Neurologic: CNII-XII intact - Musculoskeletal Musculoskeletal: gait normal, strength equal bilaterally - Psychiatric Psychiatric: A&O x's 3, appropriate affect, intact judgment & insight - Labs CBC & Chem 7: 11/03/17 07:20 11/03/17 07:20 Labs: Abnormal Lab Results - Last 24 Hours (Table) 11/02/17 11/02/17 11/03/17 Range/Units 16:42 21:35 07:20 RBC 3.92 L (4.30-5.90) m/uL Hgb 11.9 L (13.0-17.5) gm/dL Hct 37.5 L (39.0-53.0) % BUN (9-20) mg/dL Glucose (74-99) mg/dL POC Glucose (mg/dL) 125 H 115 H (75-99) mg/dL 11/03/17 11/03/17 11/03/17 Range/Units 07:20 07:31 12:03 RBC (4.30-5.90) m/uL Hgb (13.0-17.5) gm/dL Hct (39.0-53.0) % BUN 37 H (9-20) mg/dL Glucose 109 H (74-99) mg/dL POC Glucose (mg/dL) 113 H 205 H (75-99) mg/dL Microbiology - Last 24 Hours (Table) 10/29/17 11:22 Blood Culture - Preliminary Blood No Growth after 120 hours Assessment and Plan Assessment: Right-sided sixth rib fracture nondisplaced Purulent tracheobronchitis Right-sided musculoskeletal chest pain related to fall now as well as related to acute COPD exacerbation spasm Acute COPD exacerbation and acute asthma exacerbation Severe COPD along with chronic persistent asthma Mood disorder depression gerd History of seizure disorder Hypertension hypertensive cardiovascular disease Plan: Agree with breathing treatments IV steroids deep breathing exercises incentive spirometry, resume home medications Will obtain a chest x-ray repeat Review x-ray ribs view on the right side revealed presence of right-sided sixth rib fracture in the meantime we'll continue patient on antibiotics, will reassess in with further recommendations pending, continue double antibiotics along with IV steroids breathing treatments reviewed rib view x-rays we'll follow closely Time with Patient: Greater than 30
[2017-11-03 17:20] LABS: Glucose,Whole Blood 117 mg/dL (75-99)
[2017-11-03] MEDS: SYMBICORT 160-4.5 MCG INHALER INHALATION SCH (19:25)
[2017-11-03] MEDS: DULoxetine HCL 60 MG CAPSULE.DR PO SCH (20:56)
[2017-11-03] MEDS: MIRTAZAPINE 15 MG TAB PO SCH (20:56)
[2017-11-03 22:26] LABS: Glucose,Whole Blood 134 mg/dL (75-99)
[2017-11-04] MEDS: IPRATROPIUM-ALBUTEROL 3 ML NEB INHALATION SCH ×4 (00:33→11:51)
[2017-11-04] MEDS: methylPREDNISolone SOD SUCCI 125 MG/2 ML VIAL IV SCH ×3 (00:38→11:57)
[2017-11-04] MEDS: LEVOTHYROXINE 50 MCG TAB PO SCH (06:46)
[2017-11-04 07:25] VITALS: BP 114/67; RESP 16; TEMP 97.7
[2017-11-04] MEDS: INSULIN ASPART 100 UNIT/ML 1 ML 10 ML VIAL SQ SCH ×2 (07:48→12:11)
[2017-11-04 08:00] LABS: Glucose,Whole Blood 121 mg/dL (75-99)
[2017-11-04] MEDS: SYMBICORT 160-4.5 MCG INHALER INHALATION SCH (08:22)
[2017-11-04 09:18] LABS: Anion Gap 12 mmol/L; Blood Urea Nitrogen 29 mg/dL (9-20); Calcium 9.7 mg/dL (8.4-10.2); Carbon Dioxide 31 mmol/L (22-30); Chloride 96 mmol/L (98-107); Glucose 150 mg/dL (74-99); Potassium 5.2 mmol/L (3.5-5.1); Sodium 139 mmol/L (137-145)
[2017-11-04 09:26] LABS: HCT 37.9 % (39.0-53.0); HGB 12.9 gm/dL (13.0-17.5); MCH 31.3 pg (25.0-35.0); MCHC 33.9 g/dL (31.0-37.0); MCV 92.3 fL (80.0-100.0); Mean Platelet Volume 7.4; Platelet Count 294 k/uL (150-450); RBC 4.11 m/uL (4.30-5.90); RDW 14.6 % (11.5-15.5); WBC 8.8 k/uL (3.8-10.6)
[2017-11-04] MEDS: cefTRIAXone IN SWFI 1,000 MG/10 ML SYRINGE IVP SCH (10:03)
[2017-11-04] MEDS: ENOXAPARIN 40 MG/0.4 ML SYRINGE SQ SCH (10:04)
[2017-11-04] MEDS: guaiFENesin 600 MG TABLET.ER PO SCH (10:04)
[2017-11-04] MEDS: levETIRAcetam 500 MG TAB PO SCH (10:04)
[2017-11-04] MEDS: DIVALPROEX ER 500 MG TAB.ER.24H PO SCH (10:04)
[2017-11-04] MEDS: DOCUSATE 100 MG CAP PO SCH (10:05)
[2017-11-04] MEDS: LISINOPRIL-HCTZ 10-12.5 MG 1 EACH TAB PO SCH (10:05)
[2017-11-04] MEDS: DIVALPROEX ER 250 MG TAB.ER.24H PO SCH (10:06)
[2017-11-04] MEDS: CHOLECALCIFEROL 1,000 UNIT TAB PO SCH (10:07)
[2017-11-04] MEDS: MULTIVITAMINS, THERA 1 EACH TAB PO SCH (10:07)
[2017-11-04] MEDS: PANTOPRAZOLE 40 MG TABLET PO SCH (10:07)
[2017-11-04 10:28] LABS: Nucleated Red Blood Cells 0 /100 WBC (0-0)
[2017-11-04 10:29] LABS: Band Neutrophils % 2 %; Lymphocytes # (M) 2.02 k/uL (1.0-4.8); Metamyelocytes # (M) 0.44 k/uL (0); Metamyelocytes % 5 %; Monocytes # (M) 0.44 k/uL (0-1.0); Myelocytes # (M) 0.26 k/uL (0); Myelocytes % 3 %; Neutrophils % (M) 63 %; Total Cells Counted 200
[2017-11-04 10:30] LABS: Poikilocytosis (M) Present
--- NOTE | 2017-11-04 11:28 | P.PN ---
Subjective Progress Note Date: 11/04/17 Principal diagnosis: Right-sided chest pain, acute COPD exacerbation, tracheobronchitis 11/04/17 pt. doing relatively better, chest wall pain and breathing issues still present but severity cont. to improve. Cough is dry and non productive, and less intense 11/03/2017, patient seen and evaluated examined clinically doing slightly better cough congestion is still there but severity is improved right-sided pleuritic chest pain due to fractures 6 through is slightly better under control her Tylenol 3 is able to breathe better hemodynamic status stable its culture results and reports are reviewed as well the blood cultures no growth so far come culture Gram stain and multiple organism was seen Gram stain final ID hours pending aspect may very well be normal respiratory hermelinda 11/02/2017, patient seen eval reexamined during the rounds he is slightly doing better able to get up and move around a little bit he had an episode of emesis last night however he is feeling less nauseous now tolerating by mouth well no other obvious complains of present continued to have right-sided pleuritic chest pain this evening is slightly better with Tylenol No. 3 11/01/2017, patient seen and evaluated examined and evaluated examined during rounds still very tight congested has cough productive of brownish sputum he gets short of breath on activity and is exertion during deep breathing he does develop severe and significant wheezing scattered developed same when he is somewhat anxious patient remains on breathing treatments steroids and antibiotics given the ALLERGY of codeine with history of some seizures we'll continue to avoid codeine, for chest pain his been getting Tylenol No. 3 with some relief he is not ready for discharge 10/31/2017, patient seen eval reexamined during the rounds is still short of breath but continued to have episodes of wheezing cough and congestion, severity has improved however to some extent, new to have episodes of chest pain which are pleuritic in nature with deep breathing as well as coughing patient does have reproducible tenderness in the right lower thoracic wall, chest x-rays pending scheduled for tomorrow 10/30/2017, patient seen and evaluated examined during the rounds he continued to have right-sided pleuritic chest pain and shortness of breath and wheezing he has reproducible tenderness present infero-posterior lateral aspect of the right thoracic wall moderate gets worse with coughing and deep breathing exercise, patient does feel congested but and able to bring sputum up, he has been tolerating breathing treatments fairly well including IV steroids has been resumed already on his home medications Mr. Yogi ivey is well-known to me he is a 46-year-old male with history of chronic persistent asthma and severe COPD has a long-standing history of smoking and nicotine use, patient has been fairly stable on the 3-4 times a day nebulizer treatment at home as well as MDI patient had a fall about a week ago developed some pain and discomfort on the right side with slightly improved however over the period of time but however one day prior to coming into the hospital he started having cough congestion shortness of breath and wheezing patient intermittent sputum production but because of the pain has difficult to bring it up usually is light in color mucoid and frothy, denies any hemoptysis, denies any night sweats fever or chills did have a feverish feeling Objective - Vital Signs Vital signs: Vital Signs Temp 97.7 F 11/04/17 07:00 Pulse 84 11/04/17 08:35 Resp 16 11/04/17 07:00 BP 114/67 11/04/17 07:00 Pulse Ox 97 11/04/17 07:00 Intake & Output 11/03/17 11/04/17 11/04/17 18:59 06:59 18:59 Intake Total 1430 1100 Output Total 500 1000 Balance 930 100 Weight 65.913 kg Intake: Oral 1430 1100 Output: Urine 500 1000 Other: Voiding Method Toilet Toilet # Voids 2 2 # Bowel Movements 1 1 - Exam Constitutional General appearance: mild distress, thin - EENT Eyes: EOMI, PERRLA, normal appearance Ears: bilateral: normal - Neck Neck: normal ROM Carotids: bilateral: upstroke normal, bruit absent Thyroid: bilateral: normal size - Respiratory Respiratory: bilateral: diminished, rhonchi, wheezing, prolonged expiration, negative: CTA, dullness, rales, prolonged inspiration, noted reproducible tenderness is present on the inferior part of the posterior lateral thoracic wall on the right side, Slightly improved compared to yesterday - Cardiovascular Rhythm: regular Heart sounds: normal: S1, S2 - Gastrointestinal General gastrointestinal: normal bowel sounds, soft - Integumentary Integumentary: normal, normal turgor - Neurologic Neurologic: CNII-XII intact - Musculoskeletal Musculoskeletal: gait normal, strength equal bilaterally - Psychiatric Psychiatric: A&O x's 3, appropriate affect, intact judgment & insight - Labs CBC & Chem 7: 11/04/17 08:23 11/04/17 08:23 Labs: Abnormal Lab Results - Last 24 Hours (Table) 11/03/17 11/03/17 11/03/17 Range/Units 12:03 17:17 22:12 RBC (4.30-5.90) m/uL Hgb (13.0-17.5) gm/dL Hct (39.0-53.0) % Metamyelocytes # (Man) (0) k/uL Myelocytes # (Manual) (0) k/uL Potassium (3.5-5.1) mmol/L Chloride (98-107) mmol/L Carbon Dioxide (22-30) mmol/L BUN (9-20) mg/dL Glucose (74-99) mg/dL POC Glucose (mg/dL) 205 H 117 H 134 H (75-99) mg/dL 11/04/17 11/04/17 11/04/17 Range/Units 07:47 08:23 08:23 RBC 4.11 L (4.30-5.90) m/uL Hgb 12.9 L (13.0-17.5) gm/dL Hct 37.9 L (39.0-53.0) % Metamyelocytes # (Man) 0.44 H (0) k/uL Myelocytes # (Manual) 0.26 H (0) k/uL Potassium 5.2 H (3.5-5.1) mmol/L Chloride 96 L (98-107) mmol/L Carbon Dioxide 31 H (22-30) mmol/L BUN 29 H (9-20) mg/dL Glucose 150 H (74-99) mg/dL POC Glucose (mg/dL) 121 H (75-99) mg/dL Microbiology - Last 24 Hours (Table) 11/01/17 16:47 Gram Stain - Final Sputum Sputum Culture - Final 10/29/17 11:22 Blood Culture - Preliminary Blood No Growth after 120 hours Assessment and Plan Assessment: Right-sided sixth rib fracture nondisplaced Purulent tracheobronchitis Right-sided musculoskeletal chest pain related to fall, rib fracture and as well as related to acute COPD exacerbation related muscle spasm Acute COPD exacerbation and acute asthma exacerbation Severe COPD along with chronic persistent asthma Mood disorder depression gerd History of seizure disorder Hypertension hypertensive cardiovascular disease Plan: Agree with breathing treatments IV steroids deep breathing exercises incentive spirometry, resume home medications Will obtain a chest x-ray repeat Review x-ray ribs view on the right side revealed presence of right-sided sixth rib fracture in the meantime we'll continue patient on antibiotics, will reassess in with further recommendations pending, continue double antibiotics along with IV steroids breathing treatments reviewed rib view x-rays we'll follow closely Time with Patient: Greater than 30
[2017-11-04 11:32] LABS: Glucose,Whole Blood 154 mg/dL (75-99)
--- NOTE | 2017-11-04 11:42 | P.DS ---
Providers Date of admission: 10/29/17 15:12 Expected date of discharge: 11/04/17 Attending physician: Minesh Wtakins Consults: 10/29/17 15:09 Consult Physician Routine Consulting Provider: Diego Coles Consult Reason/Comments: COPD exacerbation Do you want consulting provider notified?: Yes Primary care physician: Minesh Watkins [facility] Course: discharge diagnosis #1 right sided chest pain with tenderness to palpation to the area likely related to cough as well as the non-displaced fracture of the right sixth rib. Continue with Tylenol with codeine for pain #2 acute purulent bronchitis no evidence of pneumonia on chest x-ray, maintained on IV Rocephin. Patient still complaining of severe cough. Some improvement with the cough syrup #3 acute exacerbation of chronic obstructive pulmonary disease patient was started on IV Solu-Medrol and inhaled bronchodilators #4 underlying history of severe COPD with chronic persistent asthma #5 underlying history of depression, maintained on Remeron #6 underlying history of gastroesophageal reflux disease #7 underlying history of seizure disorder maintained on Keppra #8 underlying history of hypothyroidism maintained on Synthroid #9 underlying history of hypertension 10. Constipation add Colace. Improved Hospital course Yogi Allison is a 46-year-old male, well known to my practice with history of chronic persistent asthma and severe COPD and history of smoking, who presented to [facility] emergency room with a chief complaint of cough and right sided chest pain. Patient states that his symptoms started a few days ago he was having cough and worsening shortness of breath. On the day of admission he started having right sided chest. He denies any fever or chills denies any hemoptysis. Patient was treated for COPD exacerbation and bronchitis. Started on IV steroids and IV antibiotics with Rocephin. Chest x- ray showed no evidence of pneumonia. Patient seen evaluated by pulmonary service. They did add Symbicort and cough syrup during this admission. Patient 's shortness of breath and cough are finally showing improvement. Sputum culture is still pending. Patient will continue on antibiotics for 3 more days to complete antibiotic treatment for his bronchitis. Also be discharged with a prednisone taper. He was found to have evidence of a right rib fracture that was nondisplaced. He was given a prescription for Tylenol with Codeine dispense 20. Patient's pain is controlled. Cough has improved. He has been up and ambulating. He has been cleared by pulmonary service for discharge. He' ll follow up with Dr. Watkins and Dr. Kingsley in 1 week. We'll need to follow-up on sputum culture in the office. I performed an examination of the patient and discussed their management with the physician Tester [employer]. I have reviewed the Physician Tester [employer]'s notes and agree with the documented findings and plan of care Patient Condition at Discharge: Stable Plan - Discharge Summary Discharge Rx Participant: Yes New Discharge Prescriptions: New Acetaminophen-Codeine 300-30mg [Tylenol w/codeine #3] 1 each PO Q8HR PRN #20 tab PRN Reason: Moderate Pain Cefuroxime Axetil [Ceftin] 500 mg PO BID #4 tab predniSONE 10 mg PO DIRECTED #30 tab Continue Divalproex Sodium [Depakote ER] 500 mg PO BID Divalproex ER [Depakote ER] 250 mg PO BID Albuterol Nebulized [Ventolin Nebulized] 2.5 mg INHALATION RT-DAILY Multivitamin [Men's Multi-Vitamin] 1 tab PO DAILY Ranitidine HCl [Zantac] 150 mg PO BID Omeprazole [PriLOSEC] 20 mg PO AC-BID levETIRAcetam [Keppra] 1,000 mg PO BID Cholecalciferol [Vitamin D3] 1,000 unit PO DAILY Arformoterol Tartrate [Brovana] 15 mcg INHALATION RT-BID Mirtazapine [Remeron] 30 mg PO HS Levothyroxine Sodium [Synthroid] 50 mcg PO DAILY DULoxetine HCL [Cymbalta] 60 mg PO HS Lisinopril-Hctz 10-12.5 mg [Zestoretic 10-12.5] 1 tab PO DAILY Discharge Medication List Albuterol Nebulized [Ventolin Nebulized] 2.5 mg INHALATION RT-DAILY 04/04/14 [ History] Divalproex ER [Depakote ER] 250 mg PO BID 04/04/14 [History] Divalproex Sodium [Depakote ER] 500 mg PO BID 04/04/14 [History] Multivitamin [Men's Multi-Vitamin] 1 tab PO DAILY 04/04/14 [History] Omeprazole [PriLOSEC] 20 mg PO AC-BID 10/06/16 [History] Ranitidine HCl [Zantac] 150 mg PO BID 10/06/16 [History] levETIRAcetam [Keppra] 1,000 mg PO BID 10/06/16 [History] Cholecalciferol [Vitamin D3] 1,000 unit PO DAILY 04/21/17 [History] Arformoterol Tartrate [Brovana] 15 mcg INHALATION RT-BID 07/29/17 [History] DULoxetine HCL [Cymbalta] 60 mg PO HS 10/29/17 [History] Levothyroxine Sodium [Synthroid] 50 mcg PO DAILY 10/29/17 [History] Lisinopril-Hctz 10-12.5 mg [Zestoretic 10-12.5] 1 tab PO DAILY 10/29/17 [History ] Mirtazapine [Remeron] 30 mg PO HS 10/29/17 [History] Acetaminophen-Codeine 300-30mg [Tylenol w/codeine #3] 1 each PO Q8HR PRN #20 tab 11/04/17 [Rx] Cefuroxime Axetil [Ceftin] 500 mg PO BID #4 tab 11/04/17 [Rx] predniSONE 10 mg PO DIRECTED #30 tab 11/04/17 [Rx] Follow up Appointment(s)/Referral(s): [facility], [NON-STAFF] - Minesh Watkins MD [Primary Care Provider] - 1 Week Deigo Coles MD [STAFF PHYSICIAN] - 1 Week Patient Instructions/Handouts: Chronic Lung Disease and Infection Prevention ( DC) Activity/Diet/Wound Care/Special Instructions: NO smoking, cessation information provided. Activity as tolerated. diet: regular Discharge Disposition: HOME WITH HOME HEALTH SERVICES
[2017-11-04 11:54] VITALS: PULSE 88
--- NOTE | 2017-11-08 08:28 | CDI ---
Last Revision, September 2017 Documentation Clarification Form Date: 11/08/2017 8:14:00 AM From: Jeanette Pichardo Admit Date: 10/29/2017 3:12:00 PM Patient Name: Yogi Allison Visit Number: [id number] Discharge Date: 11/04/17 ATTENTION: The Clinical Documentation Specialists (CDI) and [facility] Coding Staff appreciate your assistance in clarifying documentation. Please respond to the clarification below the line at the bottom and electronically sign. The CDI & [facility] Coding staff will review the response and follow-up if needed. Please note: Queries are made part of the Legal Health Record. If you have any questions, please contact the author of this message via ITS. Dr. Minesh Watkins/[address], Chronic persistent asthma with exacerbaton is documented in the H&P, consult, PNs and discharge summary . Patient history/risk factors: hx of asthma, severe COPD, hx smoking Clinical Indicators: sweats during night wo fever, coughing, wheezing Radiology: No active intrathoracic disease Vital Signs: P134, R-24, BP-130/72, O2 stats on 2L NC-97 Treatment: IV steroids, IV antibiotics, breathing exercises, IS Consults: pulmonary In your professional opinion, can you please further specify the seveity of the chronic persistent asthma? Severity: Mild persistent Moderate persistent Severe persistent Other, please specify ____ Unable to determine If you have a question about this query, please contact Valentina Ortiz, Computer Science Teacher, [employer] [place] at [phone] between 8am and 5pm. Please continue to document in your progress notes and discharge summary in order to capture severity of illness and risk of mortality. Include clinical findings that support your diagnosis. MTDD
== END 2017-11-04 14:18 | disposition home health service (06) | DRG 191 ==
LOC: EC 11:09 → 4MS4W 15:12
PROVIDERS: ADMIT Internal Medicine; ATTEND Internal Medicine
DX: J44.0 Chronic obstructive pulmonary disease with (acute) lower respiratory infection (principal); S22.31XA Fracture of one rib, right side, initial encounter for closed fracture; J80 Acute respiratory distress syndrome; J45.51 Severe persistent asthma with (acute) exacerbation; J44.1 Chronic obstructive pulmonary disease with (acute) exacerbation; J20.9 Acute bronchitis, unspecified; E03.9 Hypothyroidism, unspecified; G40.909 Epilepsy, unspecified, not intractable, without status epilepticus; K21.9 Gastro-esophageal reflux disease without esophagitis; K59.00 Constipation, unspecified; F32.9 Major depressive disorder, single episode, unspecified; F41.9 Anxiety disorder, unspecified; I11.9 Hypertensive heart disease without heart failure; F17.200 Nicotine dependence, unspecified, uncomplicated; Z79.51 Long term (current) use of inhaled steroids; Z79.899 Other long term (current) drug therapy; Z88.5 Allergy status to narcotic agent; Z88.8 Allergy status to other drugs, medicaments and biological substances; W19.XXXA Unspecified fall, initial encounter
CPT/HCPCS: 36415; 71046; 80048; 80053; 82550; 82553; 83735; 83880; 84484; 85025; 85379; 85610; 85730; 87040; 87070; 87205; 87502; 94640; 94760; 96361; 96365; 96375; 99285

== ENCOUNTER → 2018-01-09 | Outpatient (CLI) | payer MEDICARE, OTHER ==
[2018-01-09 09:26] LABS: HCT 37.8 % (39.0-53.0); HGB 12.3 gm/dL (13.0-17.5); MCH 29.8 pg (25.0-35.0); MCHC 32.6 g/dL (31.0-37.0); MCV 91.5 fL (80.0-100.0); Mean Platelet Volume 6.9; Platelet Count 292 k/uL (150-450); RBC 4.13 m/uL (4.30-5.90); WBC 7.2 k/uL (3.8-10.6)
[2018-01-09 09:37] LABS: ALT 25 U/L (21-72); AST 18 U/L (17-59); Albumin 4.2 g/dL (3.5-5.0); Alkaline Phosphatase 72 U/L (38-126); Anion Gap 13 mmol/L; Blood Urea Nitrogen 25 mg/dL (9-20); Carbon Dioxide 28 mmol/L (22-30); Chloride 106 mmol/L (98-107); Cholesterol 183 mg/dL (<200); Glucose 98 mg/dL (74-99); HDL Cholesterol 49 mg/dL (40-60); LDL Cholesterol,Calculated 102 mg/dL (0-99); Potassium 4.7 mmol/L (3.5-5.1); Sodium 147 mmol/L (137-145); Total Bilirubin 0.3 mg/dL (0.2-1.3); Total Protein 7.2 g/dL (6.3-8.2); Triglycerides 159 mg/dL (<150)
== END | disposition home or self-care (01) ==
LOC: LABWHC1 08:39
PROVIDERS: ATTEND Psychiatry & Neurology Neurology
DX: G40.909 Epilepsy, unspecified, not intractable, without status epilepticus (principal); E03.9 Hypothyroidism, unspecified; I10 Essential (primary) hypertension
CPT/HCPCS: 36415; 80053; 80061; 80164; 80177; 84443; 85027

== ENCOUNTER → 2018-01-16 | Outpatient (CLI) | payer MEDICARE, OTHER ==
--- NOTE | 2018-01-16 15:33 | XR ---
EXAMINATION TYPE: XR chest 2V DATE OF EXAM: 01/16/2018 COMPARISON: 11/02/2017 HISTORY: Shortness of breath. TECHNIQUE: Frontal and lateral views of the chest are obtained. FINDINGS: There is no focal air space opacity, pleural effusion, or pneumothorax seen. The cardiac silhouette size is within normal limits. The osseous structures are intact. There is an age-indeter minate fracture of the lateral ribs 6 on the right, not well visualized on the prior exam possibly du e to hypoinflation. The previously seen rib fractures of ribs 2 and 3 in the left are again healed. C holecystectomy clips are noted within the right upper quadrant. IMPRESSION: No acute cardiopulmonary process.
== END | disposition home or self-care (01) ==
LOC: RADXRMAIN 14:59
PROVIDERS: ATTEND Internal Medicine Sleep Medicine
DX: J18.9 Pneumonia, unspecified organism (principal)
CPT/HCPCS: 71046

== ENCOUNTER → 2018-01-25 | Outpatient (CLI) | payer MEDICARE, OTHER ==
[2018-01-26 13:58] LABS: Alt. alternata IgE Class CLASS 0; Alternaria alternata IgE <0.35 kU/L (<0.35); Asperg. fumagatus IgE <0.35 kU/L (<0.35); Asperg. fumagatus IgE Class CLASS 0; Bermuda Grass IgE <0.35 kU/L (<0.35); Birch(Com.Silvr) IgE <0.35 kU/L (<0.35); Birch(Com.Silvr) IgE Class CLASS 0; Cat Epith & Dander IgE <0.35 kU/L (<0.35); Cat Epith & Dander IgE Class CLASS 0; Clad herbarum IgE <0.35 kU/L (<0.35); Cockroach IgE <0.35 kU/L (<0.35); Cottonwood IgE <0.35 kU/L (<0.35); Dermato. Pteronyssinus IgE <0.35 kU/L (<0.35); Dermato. farinae IgE <0.35 kU/L (<0.35); Dermato. farinae IgE Class CLASS 0; Dog Dander IgE <0.35 kU/L (<0.35); Elm IgE <0.35 kU/L (<0.35); Maple (Box Elder) IgE <0.35 kU/L (<0.35); Maple (Box Elder) IgE Class CLASS 0; Mountain Cedar IgE <0.35 kU/L (<0.35); Mountain Cedar IgE Class CLASS 0; Mouse Urine IgE Class CLASS 0; Nettle IgE <0.35 kU/L (<0.35); Nettle IgE Class CLASS 0; Oak IgE <0.35 kU/L (<0.35); Penicillium notatum IgE Class CLASS 0; Rough Marshelder IgE <0.35 kU/L (<0.35); Rough Marshelder IgE Class CLASS 0; Timothy Grass IgE <0.35 kU/L (<0.35); White Ash IgE Class CLASS 0
== END | disposition home or self-care (01) ==
LOC: LABWHC1 11:28
PROVIDERS: ATTEND Internal Medicine Sleep Medicine
DX: B44.81 Allergic bronchopulmonary aspergillosis (principal)
CPT/HCPCS: 36415; 82785; 86001; 86003; 86606; 86609

== ENCOUNTER 2018-02-10 15:41 | Emergency (ER) | payer MEDICARE, OTHER ==
[2018-02-10] MEDS ORDERED: SODIUM CHLORIDE 0.9% 1,000 ML IV STA (16:01)
[2018-02-10] MEDS ORDERED: DIVALPROEX 500 MG TABLET.DR PO STA (16:05)
--- NOTE | 2018-02-10 16:05 | ED ---
Seizure HPI - General Chief Complaint: Seizure Stated Complaint: Seizure Time Seen by Provider: 02/10/18 15:44 Source: patient, EMS Mode of arrival: EMS Limitations: no limitations - History of Present Illness Initial Comments: Patient is a 47-year-old male with a known seizure disorder presenting for seizures. Patient states that he is supposed to take 750 mg of valproic acid twice a day as well as 1000 mg of Keppra twice a day and that he has been unable to do so because he ran out of his medications. Since yesterday, he has had multiple focal seizures which manifest themselves as I rolling as well as blacking out. He says that they've been occurring approximately every 30 minutes and they have been increasing in frequency. Additionally, he had a "large" seizure just prior to arrival were his arms and legs were delon and he had loss of consciousness. He is unsure how long this large seizure lasted and states that he was slightly confused after. - Related Data Home Medications Medication Instructions Recorded Confirmed Albuterol Nebulized [Ventolin 2.5 mg INHALATION RT-DAILY 04/04/14 02/10/18 Nebulized] Divalproex ER [Depakote ER] 250 mg PO BID 04/04/14 02/10/18 Divalproex Sodium [Depakote ER] 500 mg PO BID 04/04/14 02/10/18 Omeprazole [PriLOSEC] 20 mg PO AC-BID 10/06/16 02/10/18 Ranitidine HCl [Zantac] 150 mg PO BID 10/06/16 02/10/18 levETIRAcetam [Keppra] 1,000 mg PO BID 10/06/16 02/10/18 Arformoterol Tartrate [Brovana] 15 mcg INHALATION RT-BID 07/29/17 02/10/18 DULoxetine HCL [Cymbalta] 60 mg PO HS 10/29/17 02/10/18 Levothyroxine Sodium [Synthroid] 50 mcg PO DAILY 10/29/17 02/10/18 Lisinopril-Hctz 10-12.5 mg 1 tab PO DAILY 10/29/17 02/10/18 [Zestoretic 10-12.5] Mirtazapine [Remeron] 30 mg PO HS 10/29/17 02/10/18 Previous Rx's Medication Instructions Recorded levETIRAcetam [Keppra] 1,000 mg PO Q12HR #60 tab 02/10/18 Allergies Allergy/AdvReac Type Severity Reaction Status Date / Time hydrocodone [From Vicodin] Allergy Unknown Verified 02/10/18 16:14 naproxen Allergy Unknown Verified 02/10/18 16:14 phenobarbital Allergy Unknown Verified 02/10/18 16:14 Review of Systems ROS Statement: Those systems with pertinent positive or pertinent negative responses have been documented in the HPI. Constitutional: Negative for chills, fatigue and fever. HENT: Negative for congestion. Respiratory: Negative for chest tightness, shortness of breath and wheezing. Cardiovascular: Negative for chest pain and palpitations. Gastrointestinal: Negative for abdominal pain. Negative for abdominal distention , diarrhea, nausea and vomiting. Genitourinary: Negative for dysuria. Musculoskeletal: Negative for back pain, neck pain and neck stiffness. Skin: Negative for color change. Neurological: Negative for dizziness, speech difficulty, weakness and light- headedness. Positive for seizures Psychiatric/Behavioral: Negative for agitation and confusion. The patient is not nervous/anxious. ROS Other: All systems not noted in ROS Statement are negative. Past Medical History Past Medical History: COPD, GERD/Reflux, Seizure Disorder History of Any Multi-Drug Resistant Organisms: None Reported Past Surgical History: Cholecystectomy, Orthopedic Surgery Additional Past Surgical History / Comment(s): vasectomy Past Psychological History: Anxiety, Depression Smoking Status: Former smoker Past Alcohol Use History: None Reported Past Drug Use History: None Reported - Past Family History Mother Family Medical History: Hypertension Father Additional Family Medical History / Comment(s): lung cancer General Exam - General Exam Comments Initial Comments: Physical Exam Constitutional: Pt is oriented to person, place, and time. Pt appears well- developed and well-nourished. No distress. HENT: Head: Normocephalic and atraumatic. Eyes: EOM are normal. Neck: Normal range of motion. Neck supple. Cardiovascular: Normal rate, regular rhythm, S1 normal, S2 normal and normal heart sounds. Exam reveals no gallop and no friction rub. No murmur heard. Pulmonary/Chest: Effort normal and breath sounds normal. No tachypnea and no bradypnea. No respiratory distress. No wheezes or rales noted. Abdominal: Soft. Bowel sounds are normal. Pt exhibits no shifting dullness, no distension, no pulsatile liver, no fluid wave, no abdominal bruit and no ascites. There is no tenderness. There is no rigidity, no rebound, no guarding, no tenderness at McBurney's point and negative Pardo's sign. Musculoskeletal: Normal range of motion. Neurological: Pt is alert and oriented to person, place, and time. No cranial nerve deficit. Skin: Skin is warm and dry. No rash noted. Pt is not diaphoretic. No erythema. No pallor. Psychiatric: Pt has a normal mood and affect. Pt behavior is normal. Thought content normal. Limitations: no limitations Course Vital Signs 02/10/18 02/10/18 02/10/18 15:45 17:10 18:00 Temperature 98.5 F 98.0 F Pulse Rate 101 H 97 76 Respiratory 16 18 18 Rate Blood Pressure 123/69 123/69 100/71 O2 Sat by Pulse 96 95 98 Oximetry Medical Decision Making - Medical Decision Making Laboratory studies revealed that hemoglobin stable at 12.3 and electrolytes were relatively within normal limits. Valproic acid level was also within therapeutic limits. Patient was given Keppra while here in the hospital and he stated that he has been taking his Depakote as instructed. Hilario arrived bedside and stated that she did have enough money to get the Keppra refills. Patient was deemed to be stable for discharge and showed no further focal seizure or tonic-clonic seizures here in the emergency department.Explained all labs and diagnostic test results and that we will discharge the patient home and patient is to follow up with PCP in 1-2 days and return to the ED if symptoms worsen. Pt is agreeable to plan. - Lab Data Result diagrams: 02/10/18 15:58 02/10/18 15:58 Lab Results 02/10/18 02/10/18 02/10/18 Range/Units 15:58 15:58 15:58 WBC 5.6 (3.8-10.6) k/uL RBC 4.01 L (4.30-5.90) m/uL Hgb 12.3 L (13.0-17.5) gm/dL Hct 36.3 L (39.0-53.0) % MCV 90.6 (80.0-100.0) fL MCH 30.7 (25.0-35.0) pg MCHC 33.8 (31.0-37.0) g/dL RDW 13.2 (11.5-15.5) % Plt Count 308 (150-450) k/uL Neutrophils % 58 % Lymphocytes % 29 % Monocytes % 9 % Eosinophils % 2 % Basophils % 0 % Neutrophils # 3.2 (1.3-7.7) k/uL Lymphocytes # 1.6 (1.0-4.8) k/uL Monocytes # 0.5 (0-1.0) k/uL Eosinophils # 0.1 (0-0.7) k/uL Basophils # 0.0 (0-0.2) k/uL Sodium 146 H (137-145) mmol/L Potassium 4.2 (3.5-5.1) mmol/L Chloride 108 H (98-107) mmol/L Carbon Dioxide 22 (22-30) mmol/L Anion Gap 16 mmol/L BUN 14 (9-20) mg/dL Creatinine 0.80 (0.66-1.25) mg/dL Est GFR (CKD-EPI)AfAm >90 (>60 ml/min/1.73 sqM) Est GFR (CKD-EPI)NonAf >90 (>60 ml/min/1.73 sqM) Glucose 108 H (74-99) mg/dL Calcium 9.3 (8.4-10.2) mg/dL Magnesium 2.1 (1.6-2.3) mg/dL Total Bilirubin 0.1 L (0.2-1.3) mg/dL AST 19 (17-59) U/L ALT 21 (21-72) U/L Alkaline Phosphatase 54 (38-126) U/L CK-MB (CK-2) 0.5 (0.0-2.4) ng/mL Total Protein 6.8 (6.3-8.2) g/dL Albumin 4.1 (3.5-5.0) g/dL Valproic Acid 92.4 ug/mL Disposition Clinical Impression: Seizure Disposition: HOME SELF-CARE Condition: Good Instructions: Recurrent Seizures in Adults (ED) Prescriptions: levETIRAcetam [Keppra] 1,000 mg PO Q12HR #60 tab Is patient prescribed a controlled substance at d/c from ED?: No Referrals: Mathew Nevarez MD [Primary Care Provider] - 1-2 days Time of Disposition: 17:48
[2018-02-10] MEDS ORDERED: DIVALPROEX 250 MG TABLET.DR PO STA (16:06)
[2018-02-10] MEDS ORDERED: levETIRAcetam 500 MG TAB PO STA (16:07)
[2018-02-10 16:14] LABS: Basophils % (A) 0 %; Eosinophils # (A) 0.1 k/uL (0-0.7); Eosinophils % (A) 2 %; HCT 36.3 % (39.0-53.0); HGB 12.3 gm/dL (13.0-17.5); Lymphocytes # (A) 1.6 k/uL (1.0-4.8); Lymphocytes % (A) 29 %; MCH 30.7 pg (25.0-35.0); MCHC 33.8 g/dL (31.0-37.0); MCV 90.6 fL (80.0-100.0); Mean Platelet Volume 6.9; Monocytes # (A) 0.5 k/uL (0-1.0); Monocytes % (A) 9 %; Neutrophils # (A) 3.2 k/uL (1.3-7.7); Neutrophils % (A) 58 %; Platelet Count 308 k/uL (150-450); RBC 4.01 m/uL (4.30-5.90); RDW 13.2 % (11.5-15.5); WBC 5.6 k/uL (3.8-10.6)
[2018-02-10 16:23] LABS: ALT 21 U/L (21-72); AST 19 U/L (17-59); Albumin 4.1 g/dL (3.5-5.0); Alkaline Phosphatase 54 U/L (38-126); Anion Gap 16 mmol/L; Blood Urea Nitrogen 14 mg/dL (9-20); Calcium 9.3 mg/dL (8.4-10.2); Carbon Dioxide 22 mmol/L (22-30); Chloride 108 mmol/L (98-107); Glucose 108 mg/dL (74-99); Magnesium 2.1 mg/dL (1.6-2.3); Potassium 4.2 mmol/L (3.5-5.1); Sodium 146 mmol/L (137-145); Total Bilirubin 0.1 mg/dL (0.2-1.3); Total Protein 6.8 g/dL (6.3-8.2)
[2018-02-10 16:28] LABS: Valproic Acid (Depakene) 92.4 ug/mL
[2018-02-10 17:11] VITALS: RESP 18
[2018-02-10 18:16] VITALS: BP 100/71; PULSE 76; TEMP 98
== END 2018-02-10 18:10 | disposition home or self-care (01) ==
LOC: EC 15:41
DX: G40.909 Epilepsy, unspecified, not intractable, without status epilepticus (principal); J44.9 Chronic obstructive pulmonary disease, unspecified; K21.9 Gastro-esophageal reflux disease without esophagitis; F32.9 Major depressive disorder, single episode, unspecified; F41.9 Anxiety disorder, unspecified; Z87.891 Personal history of nicotine dependence; Z79.899 Other long term (current) drug therapy; Z88.5 Allergy status to narcotic agent; Z88.6 Allergy status to analgesic agent; Z88.8 Allergy status to other drugs, medicaments and biological substances
CPT/HCPCS: 36415; 80053; 80164; 82553; 83735; 85025; 96360; 99284

== ENCOUNTER → 2018-03-27 | Outpatient (CLI) | payer MEDICARE, OTHER ==
--- NOTE | 2018-03-28 02:15 | MR ---
EXAMINATION TYPE: MR lumbar spine wo/w con DATE OF EXAM: 03/27/2018 COMPARISON: 08/14/2016 HISTORY: Back pain TECHNIQUE: Multiplanar, multisequence images of the lumbar spine were acquired utilizing 7.5 mL intravenous gado linium contrast. Lumbar vertebra have fairly normal spacing and alignment. Neural foramina appear normal. There is no compression fracture. I see no bony destructive process. Lumbar nerve roots appear normal. There is n o evidence of spinal stenosis. Contrast images show no pathologic enhancement. There is no lumbar par aspinal mass. The visualized sacroiliac joints appear intact. IMPRESSION: Negative MR scan of the lumbar spine. No change. Minute posterior L5-S1 disc bulge without any imping ement on the spinal canal.
== END ==
LOC: RADMRIMAIN 14:18
PROVIDERS: ATTEND Psychiatry & Neurology Neurology
DX: M51.17 Intervertebral disc disorders with radiculopathy, lumbosacral region (principal)
CPT/HCPCS: 72158; A9581

== ENCOUNTER → 2018-12-26 | Outpatient (CLI) | payer MEDICARE, OTHER | LOC: LABWHC1 13:54 | PROVIDERS: ATTEND Psychiatry & Neurology Neurology | DX: G40.009 Localization-related (focal) (partial) idiopathic epilepsy and epileptic syndromes with seizures of localized onset, not intractable, without status epilepticus (principal) | CPT/HCPCS: 36415; 80164; 80177 ==

== ENCOUNTER 2019-03-29 19:50 | Emergency (ER) | payer MEDICARE, OTHER ==
[2019-03-29] MEDS ORDERED: SODIUM CHLORIDE 0.9% 1,000 ML IV STA ×2 (19:55→20:25)
[2019-03-29] MEDS ORDERED: SODIUM CHLORIDE 0.9% 500 ML 500 ML IV STA (19:55)
--- NOTE | 2019-03-29 19:56 | ED ---
SOB HPI - General Stated Complaint: Dizziness Time Seen by Provider: 03/29/19 19:54 Source: RN notes reviewed, old records reviewed Limitations: altered mental status - History of Present Illness Initial Comments: This is a 48-year-old male the ER for evaluation. Patient resents today for evaluation regarding not feeling well dizziness weak and lightheaded, weak on his feet. Patient has history of seizures history of dizziness history of severe COPD, also complains of some mild shortness of breath currently but not requiring any breathing treatments. Patient states is been taking all medications as prescribed with no recent medication changes he did have appointment is doctor's office today was unable to make it secondary to dizziness. Patient does admit to diminished appetite decreased eating and drinking, decreased fluid intake. Patient states is taking all medications as prescribed denies any drug or alcohol abuse MD Complaint: shortness of breath (Patient has chronic shortness of breath and cough), cough (Patient is mainly here for dizziness lightheadedness which starts in the morning and resolves throughout the day) -: week(s) Severity: mild (Worse with movement or walking) Consistency: intermittent, now resolved (Advair the day gets better) Worsens With: exertion, movement Known History Of: COPD Associated Symptoms: denies other symptoms Treatments Prior to Arrival: none - Related Data Home Medications Medication Instructions Recorded Confirmed Albuterol Nebulized [Ventolin 2.5 mg INHALATION RT-BID PRN 04/04/14 03/29/19 Nebulized] Divalproex ER [Depakote ER] 250 mg PO BID 04/04/14 03/29/19 Divalproex Sodium [Depakote ER] 500 mg PO BID 04/04/14 03/29/19 Omeprazole [PriLOSEC] 20 mg PO AC-BID 10/06/16 03/29/19 Ranitidine HCl [Zantac] 150 mg PO BID 10/06/16 03/29/19 levETIRAcetam [Keppra] 1,000 mg PO BID 10/06/16 03/29/19 Arformoterol Tartrate [Brovana] 15 mcg INHALATION RT-BID 07/29/17 03/29/19 DULoxetine HCL [Cymbalta] 60 mg PO HS 10/29/17 03/29/19 Levothyroxine Sodium [Synthroid] 50 mcg PO DAILY 10/29/17 03/29/19 Lisinopril-Hctz 10-12.5 mg 1 tab PO DAILY 10/29/17 03/29/19 [Zestoretic 10-12.5] Furosemide [Lasix] 20 mg PO DAILY 03/29/19 03/29/19 HYDROcodone/APAP 5-325MG [Metz 1 tab PO Q8H PRN 03/29/19 03/29/19 5-325] Meloxicam [Mobic] 15 mg PO DAILY 03/29/19 03/29/19 QUEtiapine [SEROquel] 100 mg PO HS 03/29/19 03/29/19 Allergies Allergy/AdvReac Type Severity Reaction Status Date / Time hydrocodone [From Vicodin] Allergy Unknown Verified 03/29/19 21:02 naproxen Allergy Unknown Verified 03/29/19 21:02 phenobarbital Allergy Unknown Verified 03/29/19 21:02 Review of Systems ROS Statement: Those systems with pertinent positive or pertinent negative responses have been documented in the HPI. ROS Other: All systems not noted in ROS Statement are negative. Past Medical History Past Medical History: COPD, GERD/Reflux, Seizure Disorder History of Any Multi-Drug Resistant Organisms: None Reported Past Surgical History: Cholecystectomy, Orthopedic Surgery Additional Past Surgical History / Comment(s): vasectomy Past Psychological History: Anxiety, Depression Smoking Status: Former smoker Past Alcohol Use History: None Reported Past Drug Use History: None Reported - Past Family History Mother Family Medical History: Hypertension Father Additional Family Medical History / Comment(s): lung cancer General Exam - General Exam Comments Initial Comments: NIH of 0, no ataxia on ambulation General appearance: alert, in no apparent distress Head exam: Present: atraumatic, normocephalic, normal inspection Eye exam: Present: normal appearance, PERRL, EOMI. Absent: scleral icterus, conjunctival injection, periorbital swelling ENT exam: Present: normal exam, mucous membranes moist Neck exam: Present: normal inspection. Absent: tenderness, meningismus, lymphadenopathy Respiratory exam: Present: normal lung sounds bilaterally. Absent: respiratory distress, wheezes, rales, rhonchi, stridor Cardiovascular Exam: Present: regular rate, normal rhythm, normal heart sounds. Absent: systolic murmur, diastolic murmur, rubs, gallop, clicks GI/Abdominal exam: Present: soft, normal bowel sounds. Absent: distended, tenderness, guarding, rebound, rigid Extremities exam: Present: normal inspection, full ROM, normal capillary refill. Absent: tenderness, pedal edema, joint swelling, calf tenderness Back exam: Present: normal inspection Neurological exam: Present: alert, oriented X3, CN II-XII intact Psychiatric exam: Present: normal affect, normal mood Skin exam: Present: warm, dry, intact, normal color. Absent: rash Course Vital Signs 03/29/19 20:50 Temperature 98.3 F Pulse Rate 68 Respiratory 18 Rate Blood Pressure 119/74 O2 Sat by Pulse 98 Oximetry - Reevaluation(s) Reevaluation #1: 03/29/19 22:42 Medical record is reviewed Reevaluation #2: 03/29/19 22:42 Patient feels significantly improved with IV hydration, would like to be discharged home Medical Decision Making - Medical Decision Making 48 male the ER for evaluation shortness breath and cough which is chronic, pat ient also complaining of dizziness and lightheadedness with walking. Symptoms are improved here in the ER despite only given IV fluids. Patient is in no distress able to ambulate refusing hospital admission - Lab Data Result diagrams: 03/29/19 20:58 03/29/19 20:58 Lab Results 03/29/19 03/29/19 03/29/19 Range/Units 20:58 20:58 20:58 WBC 6.1 (3.8-10.6) k/uL RBC 3.60 L (4.30-5.90) m/uL Hgb 11.5 L (13.0-17.5) gm/dL Hct 33.8 L (39.0-53.0) % MCV 94.0 (80.0-100.0) fL MCH 31.8 (25.0-35.0) pg MCHC 33.9 (31.0-37.0) g/dL RDW 12.7 (11.5-15.5) % Plt Count 224 (150-450) k/uL Neutrophils % 55 % Lymphocytes % 34 % Monocytes % 5 % Eosinophils % 4 % Basophils % 0 % Neutrophils # 3.3 (1.3-7.7) k/uL Lymphocytes # 2.1 (1.0-4.8) k/uL Monocytes # 0.3 (0-1.0) k/uL Eosinophils # 0.3 (0-0.7) k/uL Basophils # 0.0 (0-0.2) k/uL PT (9.0-12.0) sec INR (<1.2) APTT (22.0-30.0) sec Sodium 144 (137-145) mmol/L Potassium 3.9 (3.5-5.1) mmol/L Chloride 111 H (98-107) mmol/L Carbon Dioxide 27 (22-30) mmol/L Anion Gap 6 mmol/L BUN 26 H (9-20) mg/dL Creatinine 0.78 (0.66-1.25) mg/dL Est GFR (CKD-EPI)AfAm >90 (>60 ml/min/1.73 sqM) Est GFR (CKD-EPI)NonAf >90 (>60 ml/min/1.73 sqM) Glucose 103 H (74-99) mg/dL Plasma Lactic Acid Nick 1.4 (0.7-2.0) mmol/L Calcium 9.0 (8.4-10.2) mg/dL Phosphorus 2.5 (2.5-4.5) mg/dL Magnesium 2.1 (1.6-2.3) mg/dL Total Bilirubin 0.2 (0.2-1.3) mg/dL AST 20 (17-59) U/L ALT 13 L (21-72) U/L Alkaline Phosphatase 51 (38-126) U/L Ammonia 33 H (<30) umol/L Troponin I (0.000-0.034) ng/mL NT-Pro-B Natriuret Pep pg/mL Total Protein 6.8 (6.3-8.2) g/dL Albumin 4.0 (3.5-5.0) g/dL Urine Color Urine Appearance (Clear) Urine pH (5.0-8.0) Ur Specific [place] (1.001-1.035) Urine Protein (Negative) Urine Glucose (UA) (Negative) Urine Ketones (Negative) Urine Blood (Negative) Urine Nitrite (Negative) Urine Bilirubin (Negative) Urine Urobilinogen (<2.0) mg/dL Ur Leukocyte Esterase (Negative) Urine Opiates Screen (NotDetected) Ur Oxycodone Screen (NotDetected) Urine Methadone Screen (NotDetected) Ur Propoxyphene Screen (NotDetected) Ur Barbiturates Screen (NotDetected) Valproic Acid 53.6 ug/mL U Tricyclic Antidepress (NotDetected) Ur Phencyclidine Scrn (NotDetected) Ur Amphetamines Screen (NotDetected) U Methamphetamines Scrn (NotDetected) U Benzodiazepines Scrn (NotDetected) Urine Cocaine Screen (NotDetected) U Marijuana (THC) Screen (NotDetected) Serum Alcohol <10 mg/dL 03/29/19 03/29/19 03/29/19 Range/Units 20:58 20:58 20:58 WBC (3.8-10.6) k/uL RBC (4.30-5.90) m/uL Hgb (13.0-17.5) gm/dL Hct (39.0-53.0) % MCV (80.0-100.0) fL MCH (25.0-35.0) pg MCHC (31.0-37.0) g/dL RDW (11.5-15.5) % Plt Count (150-450) k/uL Neutrophils % % Lymphocytes % % Monocytes % % Eosinophils % % Basophils % % Neutrophils # (1.3-7.7) k/uL Lymphocytes # (1.0-4.8) k/uL Monocytes # (0-1.0) k/uL Eosinophils # (0-0.7) k/uL Basophils # (0-0.2) k/uL PT 10.2 (9.0-12.0) sec INR 0.9 (<1.2) APTT 21.9 L (22.0-30.0) sec Sodium (137-145) mmol/L Potassium (3.5-5.1) mmol/L Chloride (98-107) mmol/L Carbon Dioxide (22-30) mmol/L Anion Gap mmol/L BUN (9-20) mg/dL Creatinine (0.66-1.25) mg/dL Est GFR (CKD-EPI)AfAm (>60 ml/min/1.73 sqM) Est GFR (CKD-EPI)NonAf (>60 ml/min/1.73 sqM) Glucose (74-99) mg/dL Plasma Lactic Acid Nick (0.7-2.0) mmol/L Calcium (8.4-10.2) mg/dL Phosphorus (2.5-4.5) mg/dL Magnesium (1.6-2.3) mg/dL Total Bilirubin (0.2-1.3) mg/dL AST (17-59) U/L ALT (21-72) U/L Alkaline Phosphatase (38-126) U/L Ammonia (<30) umol/L Troponin I <0.012 (0.000-0.034) ng/mL NT-Pro-B Natriuret Pep 234 pg/mL Total Protein (6.3-8.2) g/dL Albumin (3.5-5.0) g/dL Urine Color Urine Appearance (Clear) Urine pH (5.0-8.0) Ur Specific [place] (1.001-1.035) Urine Protein (Negative) Urine Glucose (UA) (Negative) Urine Ketones (Negative) Urine Blood (Negative) Urine Nitrite (Negative) Urine Bilirubin (Negative) Urine Urobilinogen (<2.0) mg/dL Ur Leukocyte Esterase (Negative) Urine Opiates Screen (NotDetected) Ur Oxycodone Screen (NotDetected) Urine Methadone Screen (NotDetected) Ur Propoxyphene Screen (NotDetected) Ur Barbiturates Screen (NotDetected) Valproic Acid ug/mL U Tricyclic Antidepress (NotDetected) Ur Phencyclidine Scrn (NotDetected) Ur Amphetamines Screen (NotDetected) U Methamphetamines Scrn (NotDetected) U Benzodiazepines Scrn (NotDetected) Urine Cocaine Screen (NotDetected) U Marijuana (THC) Screen (NotDetected) Serum Alcohol mg/dL 03/29/19 Range/Units 20:58 WBC (3.8-10.6) k/uL RBC (4.30-5.90) m/uL Hgb (13.0-17.5) gm/dL Hct (39.0-53.0) % MCV (80.0-100.0) fL MCH (25.0-35.0) pg MCHC (31.0-37.0) g/dL RDW (11.5-15.5) % Plt Count (150-450) k/uL Neutrophils % % Lymphocytes % % Monocytes % % Eosinophils % % Basophils % % Neutrophils # (1.3-7.7) k/uL Lymphocytes # (1.0-4.8) k/uL Monocytes # (0-1.0) k/uL Eosinophils # (0-0.7) k/uL Basophils # (0-0.2) k/uL PT (9.0-12.0) sec INR (<1.2) APTT (22.0-30.0) sec Sodium (137-145) mmol/L Potassium (3.5-5.1) mmol/L Chloride (98-107) mmol/L Carbon Dioxide (22-30) mmol/L Anion Gap mmol/L BUN (9-20) mg/dL Creatinine (0.66-1.25) mg/dL Est GFR (CKD-EPI)AfAm (>60 ml/min/1.73 sqM) Est GFR (CKD-EPI)NonAf (>60 ml/min/1.73 sqM) Glucose (74-99) mg/dL Plasma Lactic Acid Nick (0.7-2.0) mmol/L Calcium (8.4-10.2) mg/dL Phosphorus (2.5-4.5) mg/dL Magnesium (1.6-2.3) mg/dL Total Bilirubin (0.2-1.3) mg/dL AST (17-59) U/L ALT (21-72) U/L Alkaline Phosphatase (38-126) U/L Ammonia (<30) umol/L Troponin I (0.000-0.034) ng/mL NT-Pro-B Natriuret Pep pg/mL Total Protein (6.3-8.2) g/dL Albumin (3.5-5.0) g/dL Urine Color Yellow Urine Appearance Clear (Clear) Urine pH 8.0 (5.0-8.0) Ur Specific [place] 1.020 (1.001-1.035) Urine Protein Negative (Negative) Urine Glucose (UA) Negative (Negative) Urine Ketones Negative (Negative) Urine Blood Negative (Negative) Urine Nitrite Negative (Negative) Urine Bilirubin Negative (Negative) Urine Urobilinogen <2.0 (<2.0) mg/dL Ur Leukocyte Esterase Negative (Negative) Urine Opiates Screen Not Detected (NotDetected) Ur Oxycodone Screen Not Detected (NotDetected) Urine Methadone Screen Not Detected (NotDetected) Ur Propoxyphene Screen Not Detected (NotDetected) Ur Barbiturates Screen Not Detected (NotDetected) Valproic Acid ug/mL U Tricyclic Antidepress Not Detected (NotDetected) Ur Phencyclidine Scrn Not Detected (NotDetected) Ur Amphetamines Screen Not Detected (NotDetected) U Methamphetamines Scrn Not Detected (NotDetected) U Benzodiazepines Scrn Not Detected (NotDetected) Urine Cocaine Screen Not Detected (NotDetected) U Marijuana (THC) Screen Not Detected (NotDetected) Serum Alcohol mg/dL - EKG Data -: EKG Interpreted by Me (EKG shows sinus bradycardia rate of 58, FL 1:30, QRS 88, QTc 412) Disposition Clinical Impression: Dizziness Disposition: HOME SELF-CARE Condition: Good Instructions (If sedation given, give patient instructions): Dizziness (ED) Is patient prescribed a controlled substance at d/c from ED?: No Referrals: Minesh Watkins MD [Primary Care Provider] - 1-2 days
[2019-03-29 20:55] VITALS: RESP 18
[2019-03-29] MEDS ORDERED: THIAMINE 200 MG in SODIUM CHLORIDE 0.9% 100 ML IVPB STA (21:00)
[2019-03-29 21:11] LABS: Basophils % (A) 0 %; Eosinophils # (A) 0.3 k/uL (0-0.7); Eosinophils % (A) 4 %; HCT 33.8 % (39.0-53.0); HGB 11.5 gm/dL (13.0-17.5); Lymphocytes # (A) 2.1 k/uL (1.0-4.8); Lymphocytes % (A) 34 %; MCH 31.8 pg (25.0-35.0); MCHC 33.9 g/dL (31.0-37.0); Mean Platelet Volume 6.6; Monocytes # (A) 0.3 k/uL (0-1.0); Monocytes % (A) 5 %; Neutrophils # (A) 3.3 k/uL (1.3-7.7); Neutrophils % (A) 55 %; Platelet Count 224 k/uL (150-450); RDW 12.7 % (11.5-15.5); WBC 6.1 k/uL (3.8-10.6)
[2019-03-29 21:19] LABS: Lactic Acid, Venous 1.4 mmol/L (0.7-2.0)
[2019-03-29 21:20] LABS: ALT 13 U/L (21-72); AST 20 U/L (17-59); African American GFR (CKD) >90 (>60 ml/min/1.73 sqM); Alcohol <10 mg/dL; Alkaline Phosphatase 51 U/L (38-126); Anion Gap 6 mmol/L; Blood Urea Nitrogen 26 mg/dL (9-20); Carbon Dioxide 27 mmol/L (22-30); Chloride 111 mmol/L (98-107); Glucose 103 mg/dL (74-99); Magnesium 2.1 mg/dL (1.6-2.3); Phosphorus 2.5 mg/dL (2.5-4.5); Potassium 3.9 mmol/L (3.5-5.1); Sodium 144 mmol/L (137-145); Total Bilirubin 0.2 mg/dL (0.2-1.3); Total Protein 6.8 g/dL (6.3-8.2)
[2019-03-29 21:21] LABS: Appearance,Urine Clear (Clear); Bilirubin,Urine Negative (Negative); Blood,Urine Negative (Negative); Color,Urine Yellow; Glucose,Urine (UA) Negative (Negative); Ketones,Urine Negative (Negative); Leukocyte Esterase,Urine Negative (Negative); Nitrite,Urine Negative (Negative); Protein,Urine Negative (Negative); Urobilinogen,Urine <2.0 mg/dL (<2.0)
[2019-03-29 21:25] LABS: Valproic Acid (Depakene) 53.6 ug/mL
[2019-03-29 21:30] LABS: INR 0.9 (<1.2); Partial Thromboplastin Time 21.9 sec (22.0-30.0); Prothrombin Time 10.2 sec (9.0-12.0)
[2019-03-29 21:34] LABS: Amphetamine Screen,Urine Not Detected (NotDetected); Barbiturate Screen,Urine Not Detected (NotDetected); Benzodiazepines Screen,Urine Not Detected (NotDetected); Cocaine Screen,Urine Not Detected (NotDetected); Methadone Screen, Urine Not Detected (NotDetected); Opiate Screen,Urine Not Detected (NotDetected); Oxycodone Screen, Urine Not Detected (NotDetected); Phencyclidine Screen,Urine Not Detected (NotDetected); Tricyclic Antidepressant,Urine Not Detected (NotDetected); Urn Cannabinoid Scrn Not Detected (NotDetected)
[2019-03-29 22:55] VITALS: BP 119/79; PULSE 67; TEMP 97.6
== END 2019-03-29 22:58 | disposition home or self-care (01) ==
LOC: EC 19:50
DX: R42 Dizziness and giddiness (principal); R06.02 Shortness of breath; R05 Cough; J44.9 Chronic obstructive pulmonary disease, unspecified; K21.9 Gastro-esophageal reflux disease without esophagitis; G40.909 Epilepsy, unspecified, not intractable, without status epilepticus; F32.9 Major depressive disorder, single episode, unspecified; F41.9 Anxiety disorder, unspecified; Z87.891 Personal history of nicotine dependence; Z79.1 Long term (current) use of non-steroidal anti-inflammatories (NSAID); Z79.890 Hormone replacement therapy; Z79.899 Other long term (current) drug therapy; Z88.5 Allergy status to narcotic agent; Z88.8 Allergy status to other drugs, medicaments and biological substances; Z88.6 Allergy status to analgesic agent
CPT/HCPCS: 36415; 93005; 80164; 83880; 80053; 82140; 83605; 83735; 84100; 84484; 85025; 85610; 85730; 81003; 80306; 99284; 96365; 96361; G0480; J3411; 80320

== ENCOUNTER → 2019-05-11 | Outpatient (CLI) | payer MEDICARE, OTHER ==
--- NOTE | 2019-05-11 11:28 | US ---
EXAMINATION TYPE: US kidneys/renal and bladder DATE OF EXAM: 05/11/2019 COMPARISON: NONE CLINICAL HISTORY: R39.81 Urinary incontinence. x 2 months EXAM MEASUREMENTS: Right Kidney: 10.5 x 6.6 x 5.2 cm Left Kidney: 10.4 x 5.5 x 5.0 cm Post Void Residual Volume: 2.3 mL Prevoid bladder = 9.4 ml Right Kidney: No hydronephrosis or masses seen Left Kidney: Lateral, mid cyst =1.3 x 1.0 x 1.0 cm, No hydronephrosis seen. Bladder: Not fully distended to fully evaluate. Circumferential wall thickening is likely related to incomplete distention. Bilateral Jets seen: No Normal Post Void Residual: Yes, however, not fully distended pre void. There is no evidence for hydronephrosis at this point in time. No nephrolithiasis is seen. No suspi cious masses are identified. The urinary bladder is anechoic. Bilateral ureteral jets are not seen. IMPRESSION: 1. Circumferential urinary bladder wall thickening likely relates to incomplete distention (prevoid v olume is only 9.4 mL), however correlation with urinalysis is recommended to exclude cystitis. 2. No hydronephrosis. 3. Simple appearing 1.3 cm left renal cyst, Bosniak type I.
== END | disposition home or self-care (01) ==
LOC: RADUSWWP 10:30
PROVIDERS: ATTEND Internal Medicine
DX: N28.1 Cyst of kidney, acquired (principal); N32.9 Bladder disorder, unspecified
CPT/HCPCS: 76770

== ENCOUNTER → 2020-03-28 | Outpatient (CLI) | payer MEDICARE, OTHER ==
--- NOTE | 2020-03-28 14:42 | XR ---
EXAMINATION TYPE: XR chest 2V DATE OF EXAM: 03/28/2020 COMPARISON: 01/16/2018 TECHNIQUE: PA and lateral views submitted. HISTORY: COPD FINDINGS: The lungs are clear and there is no pneumothorax, pleural effusion, or focal pneumonia. Chronic def ormity anterior right rib cage compatible with remote fracture. No overt failure. Heart size normal. IMPRESSION: 1. No acute process.
== END | disposition home or self-care (01) ==
LOC: RADXRMAIN 14:23
PROVIDERS: ATTEND Internal Medicine Sleep Medicine
DX: J44.9 Chronic obstructive pulmonary disease, unspecified (principal)
CPT/HCPCS: 71046

== ENCOUNTER 2020-03-29 15:55 | Emergency (ER) | payer MEDICARE, OTHER ==
[2020-03-29 16:44] VITALS: RESP 16
[2020-03-29 16:45] LABS: Basophils # (A) 0.1 k/uL (0-0.2); Basophils % (A) 1 %; Eosinophils # (A) 0.3 k/uL (0-0.7); Eosinophils % (A) 4 %; HCT 39.5 % (39.0-53.0); Lymphocytes % (A) 27 %; MCHC 32.8 g/dL (31.0-37.0); MCV 97.5 fL (80.0-100.0); Mean Platelet Volume 6.7; Monocytes # (A) 0.4 k/uL (0-1.0); Monocytes % (A) 6 %; Neutrophils # (A) 4.5 k/uL (1.3-7.7); Neutrophils % (A) 61 %; Platelet Count 258 k/uL (150-450); RBC 4.05 m/uL (4.30-5.90); RDW 13.4 % (11.5-15.5); WBC 7.3 k/uL (3.8-10.6)
[2020-03-29 17:04] LABS: INR 0.9 (<1.2); Partial Thromboplastin Time 21.3 sec (22.0-30.0); Prothrombin Time 9.5 sec (9.0-12.0)
--- NOTE | 2020-03-29 17:15 | XR ---
EXAMINATION TYPE: XR KUB DATE OF EXAM: 03/29/2020 COMPARISON: 05/27/2013 HISTORY: Pain TECHNIQUE: 2 views upright FINDINGS: Bowel gas pattern is normal. There is no sign of intestinal obstruction or pneumoperitoneum . Fecal pattern is normal. There is no evidence of a mass. There are clips from cholecystectomy. Lung bases are clear. IMPRESSION: Nonacute abdomen. No change.
[2020-03-29 17:21] LABS: ALT 26 U/L (4-49); AST 27 U/L (17-59); African American GFR (CKD) >90 (>60 ml/min/1.73 sqM); Albumin 4.9 g/dL (3.5-5.0); Alkaline Phosphatase 68 U/L (38-126); Anion Gap 8 mmol/L; Blood Urea Nitrogen 15 mg/dL (9-20); Calcium 10.1 mg/dL (8.4-10.2); Carbon Dioxide 27 mmol/L (22-30); Chloride 106 mmol/L (98-107); Glucose 94 mg/dL (74-99); Non-African American GFR(CKD) >90 (>60 ml/min/1.73 sqM); Potassium 4.7 mmol/L (3.5-5.1); Sodium 141 mmol/L (137-145); Total Bilirubin 0.4 mg/dL (0.2-1.3); Total Protein 8.2 g/dL (6.3-8.2)
--- NOTE | 2020-03-29 18:01 | ED ---
GI Bleed HPI - General Source: patient Mode of arrival: ambulatory Limitations: no limitations <Chioma Aparicio - Last Filed: 03/29/20 18:19> <Susanna Odom - Last Filed: 04/06/20 22:59> - General Chief complaint: GI Bleed Stated complaint: rectal bleeding/dark stool Time Seen by Provider: 03/29/20 16:03 - History of Present Illness Initial comments: 49-year-old male presenting for constipation, blood in stool. Patient states he's been having very hard large brown formed stools he states they're very dark brown. He states that there are not mushy. He states that today after very hard difficult bowel movement he had some blood on the toilet paper and in the toilet. Patient denies additional episodes of bloody stools. Patient denies any lightheadedness dizziness syncope or presyncope. Patient denies any use of anticoagulation therapy. Patient denies any abdominal pain patient is no additional complaints upon arrival patient appears well no signs of acute distress. Denies history of peptic ulcer disease (Chioma Aparicio) - Related Data Home Medications Medication Instructions Recorded Confirmed Albuterol Nebulized [Ventolin 2.5 mg INHALATION RT-BID PRN 04/04/14 03/29/19 Nebulized] Divalproex ER [Depakote ER] 250 mg PO BID 04/04/14 03/29/19 Divalproex Sodium [Depakote ER] 500 mg PO BID 04/04/14 03/29/19 Omeprazole [PriLOSEC] 20 mg PO AC-BID 10/06/16 03/29/19 Ranitidine HCl [Zantac] 150 mg PO BID 10/06/16 03/29/19 levETIRAcetam [Keppra] 1,000 mg PO BID 10/06/16 03/29/19 Arformoterol Tartrate [Brovana] 15 mcg INHALATION RT-BID 07/29/17 03/29/19 DULoxetine HCL [Cymbalta] 60 mg PO HS 10/29/17 03/29/19 Levothyroxine Sodium [Synthroid] 50 mcg PO DAILY 10/29/17 03/29/19 Lisinopril-Hctz 10-12.5 mg 1 tab PO DAILY 10/29/17 03/29/19 [Zestoretic 10-12.5] Furosemide [Lasix] 20 mg PO DAILY 03/29/19 03/29/19 HYDROcodone/APAP 5-325MG [[place] 1 tab PO Q8H PRN 03/29/19 03/29/19 5-325] Meloxicam [Mobic] 15 mg PO DAILY 03/29/19 03/29/19 QUEtiapine [SEROquel] 100 mg PO HS 03/29/19 03/29/19 Allergies Allergy/AdvReac Type Severity Reaction Status Date / Time hydrocodone [From Vicodin] Allergy Unknown Verified 03/29/19 21:02 naproxen Allergy Unknown Verified 03/29/19 21:02 phenobarbital Allergy Unknown Verified 03/29/19 21:02 Review of Systems ROS Other: All systems not noted in ROS Statement are negative. <Chioma Aparicio - Last Filed: 03/29/20 18:19> ROS Other: All systems not noted in ROS Statement are negative. <Susanna Odom - Last Filed: 04/06/20 22:59> ROS Statement: Those systems with pertinent positive or pertinent negative responses have been documented in the HPI. Past Medical History Past Medical History: Cancer, COPD, GERD/Reflux, Seizure Disorder Additional Past Medical History / Comment(s): chronic back pain History of Any Multi-Drug Resistant Organisms: None Reported Past Surgical History: Cholecystectomy, Orthopedic Surgery Additional Past Surgical History / Comment(s): vasectomy Past Psychological History: Anxiety, Depression Smoking Status: Former smoker Past Alcohol Use History: None Reported Past Drug Use History: None Reported - Past Family History Mother Family Medical History: Hypertension Father Additional Family Medical History / Comment(s): lung cancer <Chioma Aparicio - Last Filed: 03/29/20 18:19> General Exam Limitations: no limitations <Chioma Aparicio - Last Filed: 03/29/20 18:19> - General Exam Comments Initial Comments: General: The patient is awake and alert, in no distress, and does not appear acutely ill. Eye: +3 mm pupils are equal, round and reactive to light, extra-ocular movements are intact. No nystagmus. There is normal conjunctiva bilaterally. No signs of icterus. Ears, nose, mouth and throat: There are moist mucous membranes and no oral lesions. Neck: The neck is supple, there is no tenderness or JVD. Cardiovascular: There is a regular rate and rhythm. No murmur, rub or gallop is appreciated. Respiratory: Lungs are clear to auscultation, respirations are non-labored, breath sounds are equal. No wheezes, stridor, rales, or rhonchi. Gastrointestinal: Soft, non-distended, non-tender abdomen without masses or organomegaly noted. There is no rebound or guarding present. Rectal: No hemorrhoids appreciated, no bright red stool or tarry stool per rectum, light brown. Musculoskeletal: Normal ROM, no tenderness. Strength 5/5. Sensation intact. Radial pulses equal bilaterally 2+. Neurological: A&O x 3. CN II-XII intact grossly, There are no obvious motor or sensory deficits. Coordination appears grossly intact. Speech is normal. Skin: Skin is warm and dry and no rashes or lesions are noted. Psychiatric: Cooperative, appropriate mood & affect, normal judgment. (Chioma Aparicio) Course Vital Signs 03/29/20 03/29/20 03/29/20 15:58 16:42 18:19 Temperature 97.9 F 98.2 F Pulse Rate 75 82 73 Respiratory 18 16 16 Rate Blood Pressure 120/73 122/86 109/72 O2 Sat by Pulse 100 100 97 Oximetry Medical Decision Making - Lab Data Result diagrams: 03/29/20 16:28 03/29/20 16:28 <Chioma Aparicio - Last Filed: 03/29/20 18:19> - Lab Data Result diagrams: 03/29/20 16:28 03/29/20 16:28 <Susanna Odom - Last Filed: 04/06/20 22:59> - Medical Decision Making Pt presenting for rectal bleeding after large hard stool. Light brown stool per rectum. Occult (-) KUB no obstructions. Hct, Hgb Stable. Patient HR and BP within acceptable limits. Patient hx appears consistent with blood per rectal from trauma of large stool rather and diverticular or other etiology of bleed. Patient has no abdominal pain. Patient case discussed iwth Dr. Odom who is agreeable to discharge [facility] strict return parameter such as recurrent bloody stools, abdominal pain, lightheaded. Patient is agreeable to this care plan and discharge at this time. (Chioma Aparicio) I was available for consultation in the emergency department. The history and physical exam were done by the midlevel provider. I was consulted for this patie nts care. I reviewed the case with the midlevel provider and based on their presentation of the patient, I agree with the assessment, medical decision making and plan of care as documented. Chart was dictated using [employer] dictation software. Attempts were made to correct any dictation errors however some typographical errors may persist. Patient was seen during a national state of emergency due to the Covid-19 pandemic. (Susanna Odom) - Lab Data Lab Results 03/29/20 03/29/20 03/29/20 Range/Units 16:28 16:28 16:28 WBC 7.3 (3.8-10.6) k/uL RBC 4.05 L (4.30-5.90) m/uL Hgb 13.0 (13.0-17.5) gm/dL Hct 39.5 (39.0-53.0) % MCV 97.5 (80.0-100.0) fL MCH 32.0 (25.0-35.0) pg MCHC 32.8 (31.0-37.0) g/dL RDW 13.4 (11.5-15.5) % Plt Count 258 (150-450) k/uL Neutrophils % 61 % Lymphocytes % 27 % Monocytes % 6 % Eosinophils % 4 % Basophils % 1 % Neutrophils # 4.5 (1.3-7.7) k/uL Lymphocytes # 2.0 (1.0-4.8) k/uL Monocytes # 0.4 (0-1.0) k/uL Eosinophils # 0.3 (0-0.7) k/uL Basophils # 0.1 (0-0.2) k/uL PT 9.5 (9.0-12.0) sec INR 0.9 (<1.2) APTT 21.3 L (22.0-30.0) sec Sodium (137-145) mmol/L Potassium (3.5-5.1) mmol/L Chloride (98-107) mmol/L Carbon Dioxide (22-30) mmol/L Anion Gap mmol/L BUN (9-20) mg/dL Creatinine (0.66-1.25) mg/dL Est GFR (CKD-EPI)AfAm (>60 ml/min/1.73 sqM) Est GFR (CKD-EPI)NonAf (>60 ml/min/1.73 sqM) Glucose (74-99) mg/dL Calcium (8.4-10.2) mg/dL Total Bilirubin (0.2-1.3) mg/dL AST (17-59) U/L ALT (4-49) U/L Alkaline Phosphatase (38-126) U/L Troponin I (0.000-0.034) ng/mL Total Protein (6.3-8.2) g/dL Albumin (3.5-5.0) g/dL Stool Occult Blood Negative (Negative) Blood Type Blood Type Recheck Bld Type Recheck Status Antibody Screen Spec Expiration Date 03/29/20 03/29/20 03/29/20 Range/Units 16:28 16:28 16:28 WBC (3.8-10.6) k/uL RBC (4.30-5.90) m/uL Hgb (13.0-17.5) gm/dL Hct (39.0-53.0) % MCV (80.0-100.0) fL MCH (25.0-35.0) pg MCHC (31.0-37.0) g/dL RDW (11.5-15.5) % Plt Count (150-450) k/uL Neutrophils % % Lymphocytes % % Monocytes % % Eosinophils % % Basophils % % Neutrophils # (1.3-7.7) k/uL Lymphocytes # (1.0-4.8) k/uL Monocytes # (0-1.0) k/uL Eosinophils # (0-0.7) k/uL Basophils # (0-0.2) k/uL PT (9.0-12.0) sec INR (<1.2) APTT (22.0-30.0) sec Sodium 141 (137-145) mmol/L Potassium 4.7 (3.5-5.1) mmol/L Chloride 106 (98-107) mmol/L Carbon Dioxide 27 (22-30) mmol/L Anion Gap 8 mmol/L BUN 15 (9-20) mg/dL Creatinine 0.70 (0.66-1.25) mg/dL Est GFR (CKD-EPI)AfAm >90 (>60 ml/min/1.73 sqM) Est GFR (CKD-EPI)NonAf >90 (>60 ml/min/1.73 sqM) Glucose 94 (74-99) mg/dL Calcium 10.1 (8.4-10.2) mg/dL Total Bilirubin 0.4 (0.2-1.3) mg/dL AST 27 (17-59) U/L ALT 26 (4-49) U/L Alkaline Phosphatase 68 (38-126) U/L Troponin I <0.012 (0.000-0.034) ng/mL Total Protein 8.2 (6.3-8.2) g/dL Albumin 4.9 (3.5-5.0) g/dL Stool Occult Blood (Negative) Blood Type A Positive Blood Type Recheck No Previous Record Bld Type Recheck Status CABO Indicated Antibody Screen NEGATIVE Spec Expiration Date 04/01/2020 5224 Disposition Is patient prescribed a controlled substance at d/c from ED?: No Time of Disposition: 18:01 <Chioma Aparicio - Last Filed: 03/29/20 18:19> <Susanna Odom - Last Filed: 04/06/20 22:59> Clinical Impression: Blood in stool, Constipation, Hard stool Disposition: HOME SELF-CARE Condition: Good Instructions (If sedation given, give patient instructions): Gastrointestinal Bleeding (ED) Additional Instructions: Please use medication as discussed. Please follow-up with family doctor in the next 2 days, follow-up with GI specialist. Please return to emergency room if the symptoms increase or worsen or for any other concerns. Referrals: Minesh Watkins MD [Primary Care Provider] - 1-2 days Kimberly Russ MD [STAFF PHYSICIAN] - 1-2 days
[2020-03-29 18:21] VITALS: BP 109/72; PULSE 73; TEMP 98.2
== END 2020-03-29 18:21 | disposition home or self-care (01) ==
LOC: EC 15:55
DX: K92.1 Melena (principal); K59.00 Constipation, unspecified; J44.9 Chronic obstructive pulmonary disease, unspecified; K21.9 Gastro-esophageal reflux disease without esophagitis; G40.909 Epilepsy, unspecified, not intractable, without status epilepticus; G89.29 Other chronic pain; M54.9 Dorsalgia, unspecified; F41.9 Anxiety disorder, unspecified; F32.9 Major depressive disorder, single episode, unspecified; Z79.51 Long term (current) use of inhaled steroids; Z79.1 Long term (current) use of non-steroidal anti-inflammatories (NSAID); Z79.899 Other long term (current) drug therapy; Z87.891 Personal history of nicotine dependence; Z88.5 Allergy status to narcotic agent; Z88.6 Allergy status to analgesic agent; Z88.8 Allergy status to other drugs, medicaments and biological substances; Z90.49 Acquired absence of other specified parts of digestive tract
CPT/HCPCS: 36415; 74018; 80053; 82272; 84484; 85025; 85610; 85730; 86850; 86900; 86901; 99285

== ENCOUNTER 2020-06-01 19:07 | Emergency (ER) | payer MEDICARE, OTHER ==
[2020-06-01] MEDS ORDERED: SODIUM CHLORIDE 0.9% 1,000 ML IV STA (19:48)
[2020-06-01] MEDS ORDERED: ONDANSETRON 4 MG/2 ML VIAL IVP STA (19:49)
[2020-06-01] MEDS ORDERED: MORPHINE SULFATE 4 MG/ML SYRINGE IVP STA (19:49)
--- NOTE | 2020-06-01 20:22 | ED ---
General Adult HPI - General Chief complaint: Nausea/Vomiting/Diarrhea Stated complaint: Diarrhea Source: patient, family, RN notes reviewed Mode of arrival: wheelchair Limitations: no limitations - History of Present Illness Initial comments: 49-year-old male with a complicated past medical history including COPD, GERD, hyperlipidemia, hypertension presents to the emergency department for chief complaint of diarrhea. Patient has had diarrhea for 2-3 days. He also has associated lower abdominal pain. Patient reports that he thinks this could be related to his acid reflux. It is a history of acid reflux in that when the acid releases itself a usually causes him diarrhea. However patient does not have any symptoms of acid reflux such as upper abdominal or chest pain. He does have some mild nausea. He does not have any fevers or chills.Patient has no other complaints at this time including shortness of breath, chest pain, nausea or vomiting, headache, or visual changes. - Related Data Home Medications Medication Instructions Recorded Confirmed Albuterol Nebulized [Ventolin 2.5 mg INHALATION TID PRN 04/04/14 04/24/20 Nebulized] Divalproex ER [Depakote ER] 250 mg PO BID 04/04/14 04/24/20 Divalproex Sodium [Depakote ER] 500 mg PO BID 04/04/14 04/24/20 Omeprazole [PriLOSEC] 20 mg PO BID 10/06/16 04/24/20 levETIRAcetam [Keppra] 1,000 mg PO BID 10/06/16 04/24/20 DULoxetine HCL [Cymbalta] 60 mg PO HS 10/29/17 04/24/20 Levothyroxine Sodium [Synthroid] 25 mcg PO DAILY 10/29/17 04/24/20 Furosemide [Lasix] 20 mg PO DAILY 03/29/19 04/24/20 Rosuvastatin Calcium [Crestor] 75 mg PO DAILY 04/24/20 04/24/20 clonazePAM [KlonoPIN] 1 mg PO HS 04/24/20 04/24/20 lisinopriL [Zestril] 5 mg PO QAM 04/24/20 04/24/20 Previous Rx's Medication Instructions Recorded Amoxicillin/Potassium Clav 1 tab PO Q12HR #20 tab 06/01/20 [Augmentin 875-125 Tablet] Ondansetron [Zofran ODT] 4 mg PO Q8HR PRN #15 tab 06/01/20 Allergies Allergy/AdvReac Type Severity Reaction Status Date / Time hydrocodone [From Vicodin] Allergy Unknown Verified 06/01/20 19:27 naproxen Allergy Unknown Verified 06/01/20 19:27 phenobarbital Allergy Unknown Verified 06/01/20 19:27 Review of Systems ROS Statement: Those systems with pertinent positive or pertinent negative responses have been documented in the HPI. ROS Other: All systems not noted in ROS Statement are negative. Past Medical History Past Medical History: COPD, GERD/Reflux, Hyperlipidemia, Hypertension, Pneumonia, Seizure Disorder, Skin Disorder, Thyroid Disorder Additional Past Medical History / Comment(s): Rosacea, chronic back pain, shoulders and arms are weak, arthritis. Cramps in hands. Last Seizure 1 1/2 yrs ago or more. Forgetful. Hands shake a lot from medicine. Rectal bleeding recently. Hx Pneumonia with right lung damage 2 yrs ago. History of Any Multi-Drug Resistant Organisms: None Reported Past Surgical History: Cholecystectomy, Orthopedic Surgery Additional Past Surgical History / Comment(s): Vasectomy, right knee surgery. Past Anesthesia/Blood Transfusion Reactions: No Reported Reaction Past Psychological History: Anxiety, Depression Smoking Status: Current some day smoker Past Alcohol Use History: None Reported Past Drug Use History: None Reported - Past Family History Mother Family Medical History: Hypertension Father Family Medical History: Cancer Additional Family Medical History / Comment(s): Lung cancer. Son(s) Family Medical History: Seizure Disorder General Exam Limitations: no limitations General appearance: alert, in no apparent distress Head exam: Present: atraumatic, normocephalic, normal inspection Eye exam: Present: normal appearance, PERRL, EOMI. Absent: scleral icterus, conjunctival injection, periorbital swelling ENT exam: Present: normal exam, mucous membranes moist Neck exam: Present: normal inspection, full ROM. Absent: tenderness, meningismus, lymphadenopathy Respiratory exam: Present: normal lung sounds bilaterally. Absent: respiratory distress, wheezes, rales, rhonchi, stridor Cardiovascular Exam: Present: regular rate, normal rhythm, normal heart sounds. Absent: systolic murmur, diastolic murmur, rubs, gallop, clicks GI/Abdominal exam: Present: soft, tenderness (mild generalized lower abdominal tenderness without guarding or rebound.), normal bowel sounds. Absent: distended, guarding, rebound, rigid Neurological exam: Present: alert Course Vital Signs 06/01/20 19:23 Temperature 97.9 F Pulse Rate 79 Respiratory 20 Rate Blood Pressure 110/68 O2 Sat by Pulse 100 Oximetry Medical Decision Making - Medical Decision Making Are stable. Patient is well-appearing. Minimal lower abdominal tenderness without guarding or rebound. CBC is unremarkable. Hemoglobin of 12.8 is patient's baseline. CMP is unremarkable. Urinalysis did show 22 red blood cells, patient will follow-up with his doctor for this which I did discuss. CT abdomen and pelvis shows minimal fats stranding in the right paracolic gutter and hepatic flexure of the colon. Somewhat suspicious for a mild colitis. Patient was treated with Augmentin and Zofran. Patient will follow up with primary care in 1-2 days. He will return for any worsening symptoms. - Lab Data Result diagrams: 06/01/20 20:14 06/01/20 20:14 Lab Results 06/01/20 06/01/20 06/01/20 Range/Units 20:14 20:14 20:14 WBC 7.1 (3.8-10.6) k/uL RBC 4.05 L (4.30-5.90) m/uL Hgb 12.8 L (13.0-17.5) gm/dL Hct 38.1 L (39.0-53.0) % MCV 94.2 (80.0-100.0) fL MCH 31.6 (25.0-35.0) pg MCHC 33.6 (31.0-37.0) g/dL RDW 12.6 (11.5-15.5) % Plt Count 177 (150-450) k/uL Neutrophils % 73 % Lymphocytes % 13 % Monocytes % 9 % Eosinophils % 2 % Basophils % 0 % Neutrophils # 5.1 (1.3-7.7) k/uL Lymphocytes # 1.0 (1.0-4.8) k/uL Monocytes # 0.6 (0-1.0) k/uL Eosinophils # 0.1 (0-0.7) k/uL Basophils # 0.0 (0-0.2) k/uL Sodium 138 (137-145) mmol/L Potassium 3.9 (3.5-5.1) mmol/L Chloride 104 (98-107) mmol/L Carbon Dioxide 29 (22-30) mmol/L Anion Gap 5 mmol/L BUN 14 (9-20) mg/dL Creatinine 0.65 L (0.66-1.25) mg/dL Est GFR (CKD-EPI)AfAm >90 (>60 ml/min/1.73 sqM) Est GFR (CKD-EPI)NonAf >90 (>60 ml/min/1.73 sqM) Glucose 102 H (74-99) mg/dL Calcium 9.0 (8.4-10.2) mg/dL Total Bilirubin 0.3 (0.2-1.3) mg/dL AST 21 (17-59) U/L ALT 17 (4-49) U/L Alkaline Phosphatase 54 (38-126) U/L Total Protein 6.4 (6.3-8.2) g/dL Albumin 3.6 (3.5-5.0) g/dL Amylase 61 (30-110) U/L Lipase 47 (23-300) U/L Urine Color Yellow Urine Appearance Clear (Clear) Urine pH 6.0 (5.0-8.0) Ur Specific [place] 1.030 (1.001-1.035) Urine Protein Negative (Negative) Urine Glucose (UA) Negative (Negative) Urine Ketones Negative (Negative) Urine Blood Small (Negative) Urine Nitrite Negative (Negative) Urine Bilirubin Negative (Negative) Urine Urobilinogen <2.0 (<2.0) mg/dL Ur Leukocyte Esterase Negative (Negative) Urine RBC 22 H (0-5) /hpf Urine WBC 1 (0-5) /hpf Urine Mucus Many H (None) /hpf Disposition Clinical Impression: Hematuria, Colitis Disposition: HOME SELF-CARE Condition: Good Instructions (If sedation given, give patient instructions): Colitis (ED) Additional Instructions: please take antibiotic as directed. Take Zofran as needed for nausea. Follow-u p with your primary care provider to discuss diagnosis of colitis as well as blood in urine. Return to the emergency room for any worsening symptoms. Prescriptions: Amoxicillin/Potassium Clav [Augmentin 875-125 Tablet] 1 tab PO Q12HR #20 tab Ondansetron [Zofran ODT] 4 mg PO Q8HR PRN #15 tab PRN Reason: Nausea Is patient prescribed a controlled substance at d/c from ED?: No Referrals: Minesh Watkins MD [Primary Care Provider] - 1-2 days Time of Disposition: 21:18
[2020-06-01 20:37] LABS: ALT 17 U/L (4-49); AST 21 U/L (17-59); African American GFR (CKD) >90 (>60 ml/min/1.73 sqM); Albumin 3.6 g/dL (3.5-5.0); Alkaline Phosphatase 54 U/L (38-126); Amylase 61 U/L (30-110); Anion Gap 5 mmol/L; Blood Urea Nitrogen 14 mg/dL (9-20); Carbon Dioxide 29 mmol/L (22-30); Chloride 104 mmol/L (98-107); Glucose 102 mg/dL (74-99); Non-African American GFR(CKD) >90 (>60 ml/min/1.73 sqM); Potassium 3.9 mmol/L (3.5-5.1); Sodium 138 mmol/L (137-145); Total Bilirubin 0.3 mg/dL (0.2-1.3); Total Protein 6.4 g/dL (6.3-8.2)
[2020-06-01 20:38] LABS: Appearance,Urine Clear (Clear); Color,Urine Yellow; Mucus,Urine Many /hpf; RBC,Urine 22 /hpf (0-5); WBC,Urine 1 /hpf (0-5)
[2020-06-01 20:39] LABS: Bilirubin,Urine Negative (Negative); Blood,Urine Small (Negative); Glucose,Urine (UA) Negative (Negative); Ketones,Urine Negative (Negative); Leukocyte Esterase,Urine Negative (Negative); Nitrite,Urine Negative (Negative); Protein,Urine Negative (Negative); Urobilinogen,Urine <2.0 mg/dL (<2.0)
[2020-06-01 20:44] LABS: Basophils % (A) 0 %; Eosinophils # (A) 0.1 k/uL (0-0.7); Eosinophils % (A) 2 %; HCT 38.1 % (39.0-53.0); HGB 12.8 gm/dL (13.0-17.5); Lymphocytes % (A) 13 %; MCH 31.6 pg (25.0-35.0); MCHC 33.6 g/dL (31.0-37.0); MCV 94.2 fL (80.0-100.0); Mean Platelet Volume 6.7; Monocytes # (A) 0.6 k/uL (0-1.0); Monocytes % (A) 9 %; Neutrophils # (A) 5.1 k/uL (1.3-7.7); Neutrophils % (A) 73 %; Platelet Count 177 k/uL (150-450); RBC 4.05 m/uL (4.30-5.90); RDW 12.6 % (11.5-15.5); WBC 7.1 k/uL (3.8-10.6)
--- NOTE | 2020-06-01 20:53 | CT ---
EXAMINATION TYPE: CT abdomen pelvis w con DATE OF EXAM: 06/01/2020 COMPARISON: 01/30/2013 HISTORY: Diarrhea CT DLP: 775.7 mGycm Automated exposure control for dose reduction was used. CONTRAST: Performed with IV Contrast, patient injected with 100 mL of Isovue 300. Lung bases are clear. There is no pleural effusion. Heart size is normal. There is no pericardial eff usion. Liver spleen stomach pancreas appear normal. Bile ducts are not dilated. There are clips from cholecy stectomy. Stomach is large. There is no adrenal mass. Kidneys show satisfactory contrast opacificatio n. There is no hydronephrosis. There is normal excretion on the delayed images. There is 1 cm cortica l cyst posterior left kidney. There is no retroperitoneal adenopathy. Appendix is posterior and appea rs normal. Bladder distends smoothly. There is no inguinal hernia. There is no free fluid in the pelvis. There i s some lipomatosis of the ascending colon transverse colon. There is minimal fat stranding around the hepatic flexure of the colon. Lumbar vertebra have normal spacing and alignment. Posterior elements are intact. There is no arvind александр fracture. The bony pelvis is intact. Hip joints are intact. There is no mesenteric edema. There is no ascites or free air. There is no evidence of bowel obstruct ion. IMPRESSION: Minimal fat stranding at the right paracolic gutter and hepatic flexure of the colon. This is somewha t suspicious for some mild colitis. This is a change compared to old exam.
[2020-06-01] MEDS ORDERED: AMOXIC-POT CLAV 875MG STARTER PACK 2 TAB BTL PO STA (21:14)
[2020-06-01] MEDS ORDERED: ONDANSETRON 4 MG ODT STARTER PACK 2 TAB BTL PO STA (21:14)
[2020-06-01] MEDS ORDERED: KETOROLAC 15 MG/ML 1 ML VIAL IVP STA (21:15)
[2020-06-01 21:36] VITALS: BP 120/73; PULSE 75; RESP 18; TEMP 98
== END 2020-06-01 21:36 | disposition home or self-care (01) ==
LOC: EC 19:07
DX: K52.9 Noninfective gastroenteritis and colitis, unspecified (principal); R31.9 Hematuria, unspecified; F17.200 Nicotine dependence, unspecified, uncomplicated; J44.9 Chronic obstructive pulmonary disease, unspecified; K21.9 Gastro-esophageal reflux disease without esophagitis; F41.9 Anxiety disorder, unspecified; F32.9 Major depressive disorder, single episode, unspecified; I10 Essential (primary) hypertension; G40.909 Epilepsy, unspecified, not intractable, without status epilepticus; E07.9 Disorder of thyroid, unspecified; Z79.890 Hormone replacement therapy; Z79.899 Other long term (current) drug therapy; Z88.5 Allergy status to narcotic agent; Z88.8 Allergy status to other drugs, medicaments and biological substances
CPT/HCPCS: 36415; 80053; 82150; 83690; 85025; 81001; 74177; 99284; 96374; 96375 ×2; 96361; J2270; J2405; J1885; S0119; Q9967

== ENCOUNTER 2020-06-10 07:45 | Day surgery (SDC) | payer MEDICARE, OTHER ==
[2020-06-06 09:54] VITALS: BMI 28.8
[~2020-06-10 07:45] MED LIST: LACTATED RINGERS 1,000 ML IV SCH; LIDOCAINE 1% (10MG/ML) FOR IV START INTRADERMA PRN
[2020-06-10 08:14] VITALS: TEMP 97.9
[2020-06-10] MEDS ORDERED: MIDAZOLAM 2 MG/2 ML VIAL ONE (09:33)
[2020-06-10] MEDS ORDERED: PROPOFOL 10 MG/ML 20 ML VIAL IV ONE (09:33)
[2020-06-10] MEDS ORDERED: fentaNYL (PF) 50 MCG/ML 2 ML AMP ONE (09:33)
[2020-06-10] MEDS ORDERED: LIDOCAINE 1% INJ 10MG/ML (20 ML MDV) ONE (09:33)
--- NOTE | 2020-06-10 10:23 | P.PCN ---
Date of Procedure: 06/10/20 Description of Procedure: BRIEF HISTORY: Patient is a 49-year-old male presenting for outpatient colonoscopy for evaluation of rectal bleeding. Patient reports a remote history of colonoscopy over 5 years ago. Reports prior polypectomy. He states that he recently had a lower GI bleed. He was started on antibiotics for colitis. He presents for further evaluation. PROCEDURE PERFORMED: Colonoscopy with poor prep and random biopsy. PREOPERATIVE DIAGNOSIS: Rectal bleed, recent treatment of colitis with antibiotics, last colonoscopy approximately 5 years ago. ESTIMATED BLOOD LOSS: Minimal. IV sedation per Anesthesia. PROCEDURE: After informed consent was obtained, the patient, was brought into the endoscopy unit. IV sedation was administered by Anesthesia under continuous monitoring. Digital rectal examination was normal. Initially the pediatric flexible video c olonoscope was then inserted in the rectum, gradually advanced into the cecum without any difficulty. Careful examination was performed as the scope was gradually being withdrawn. Ileocecal valve and the appendiceal orifice were visualized and appeared normal. Prep was poor, with semisolid stool throughout the entire colon prohibiting complete visualization of the mucosa. Mucosa of the cecum, ascending colon, transverse colon, descending colon, sigmoid colon, and rectum appeared normal, except for some mild erythema in the left colon with random biopsies taken of the right colon, transverse colon, left colon and rectum as well as normal-appearing terminal ileum. Retroflexion was performed in the rectum and no lesions were seen. The patient tolerated the procedure well. IMPRESSION: Poor prep, with semi-liquid stool throughout the entire colon making visualization of the mucosa very difficult. Random biopsies taken of the terminal ileum, right colon, transverse colon, left colon and rectum. RECOMMENDATIONS: Findings of this examination were discussed with the patient and his . Okay to resume diet. Complete antibiotic therapy. Follow-up in GI clinic next week for results of biopsies. Patient will also need to repeat colonoscopy for screening purposes is a poor prep prohibited complete visualization of the mucosa.
[2020-06-10 10:37] VITALS: BP 113/67; PULSE 68; RESP 14
== END 2020-06-10 10:57 ==
LOC: ORWHC2ENDO 07:45
PROVIDERS: ATTEND Internal Medicine
DX: K52.9 Noninfective gastroenteritis and colitis, unspecified (principal); K62.89 Other specified diseases of anus and rectum; I10 Essential (primary) hypertension; J45.909 Unspecified asthma, uncomplicated; E78.5 Hyperlipidemia, unspecified; K21.9 Gastro-esophageal reflux disease without esophagitis; E07.9 Disorder of thyroid, unspecified; F17.200 Nicotine dependence, unspecified, uncomplicated; Z88.5 Allergy status to narcotic agent; Z88.8 Allergy status to other drugs, medicaments and biological substances; Z79.890 Hormone replacement therapy; Z79.899 Other long term (current) drug therapy; Z90.49 Acquired absence of other specified parts of digestive tract; Z98.52 Vasectomy status; Z98.890 Other specified postprocedural states; Z86.69 Personal history of other diseases of the nervous system and sense organs
CPT/HCPCS: 88305; 45380; J2250; J2001; J3010; J2704

== ENCOUNTER → 2020-06-19 | Outpatient (CLI) | payer MEDICARE, OTHER ==
[2020-06-19 10:18] LABS: Basophils # (A) 0.1 k/uL (0-0.2); Basophils % (A) 1 %; Eosinophils # (A) 0.3 k/uL (0-0.7); Eosinophils % (A) 5 %; HCT 40.4 % (39.0-53.0); Lymphocytes # (A) 2.3 k/uL (1.0-4.8); Lymphocytes % (A) 33 %; MCH 30.4 pg (25.0-35.0); MCHC 32.1 g/dL (31.0-37.0); MCV 94.5 fL (80.0-100.0); Mean Platelet Volume 6.7; Monocytes # (A) 0.5 k/uL (0-1.0); Monocytes % (A) 7 %; Neutrophils # (A) 3.5 k/uL (1.3-7.7); Neutrophils % (A) 51 %; Platelet Count 231 k/uL (150-450); RBC 4.27 m/uL (4.30-5.90); RDW 13.5 % (11.5-15.5)
[2020-06-19 16:27] LABS: ALT 16 U/L (10-49); AST 19 U/L (14-35); African American GFR (CKD) 119.9 (60.0-200.0); Albumin/Globulin Ratio 1.69 (1.60-3.17); Alkaline Phosphatase 65 U/L (41-126); C Reactive Protein <0.4 mg/dL (0.0-0.8); Calcium 9.4 mg/dL (8.7-10.3); Carbon Dioxide 24.7 mmol/L (21.6-31.8); Chloride 110 mmol/L (96-109); Globulin 2.6 g/dL (1.6-3.3); Glucose 96 mg/dL (70-110); Non-African American GFR(CKD) 103.4 (60.0-200.0); Potassium 4.6 mmol/L (3.5-5.5); Sodium 142 mmol/L (135-145); Total Bilirubin 0.3 mg/dL (0.3-1.2)
[2020-06-19 17:54] LABS: Erythrocyte Sedimentation Rate 5 mm/Hr (0-20)
== END | disposition home or self-care (01) ==
LOC: LABWHC1 08:47
PROVIDERS: ATTEND Nurse Practitioner
DX: K52.9 Noninfective gastroenteritis and colitis, unspecified (principal)
CPT/HCPCS: 36415; 80053; 83993; 85025; 85652; 86140

== ENCOUNTER → 2020-06-26 | Outpatient (CLI) | payer MEDICARE | END | disposition home or self-care (01) | LOC: LABWHC1 15:25 | PROVIDERS: ATTEND Nurse Practitioner | DX: K52.9 Noninfective gastroenteritis and colitis, unspecified (principal) | CPT/HCPCS: 36415; 83516; 86255; 86671 ==

== ENCOUNTER 2020-07-02 14:06 | Emergency (ER) | payer MEDICARE ==
[2020-07-02 14:14] VITALS: TEMP 98.2
[2020-07-02] MEDS ORDERED: LORazepam 2 MG/ML INJ IV STA (14:49)
--- NOTE | 2020-07-02 14:51 | ED ---
Seizure HPI - General Chief Complaint: Seizure Stated Complaint: seizures Time Seen by Provider: 07/02/20 14:33 Source: patient, RN notes reviewed Mode of arrival: wheelchair Limitations: no limitations - History of Present Illness Initial Comments: This a 49-year-old male presents emergency from chief complaint of seizure. Patient has a long history of seizures. Patient states she sometimes has been multiple states recently has been having different she states that he gets very fidgety. Patient states she's been shaky. Patient states he has an appointment with his neurologist tomorrow. He takes Keppra and Depakote. Denies any missing doses. Denies any medication changes. No chest pain or shortness breath no current headache no blurred vision no focal weakness. - Related Data Home Medications Medication Instructions Recorded Confirmed Albuterol Nebulized [Ventolin 2.5 mg INHALATION TID PRN 04/04/14 06/10/20 Nebulized] Divalproex ER [Depakote ER] 250 mg PO BID 04/04/14 06/10/20 Divalproex Sodium [Depakote ER] 500 mg PO BID 04/04/14 06/10/20 Omeprazole [PriLOSEC] 20 mg PO BID 10/06/16 06/10/20 levETIRAcetam [Keppra] 1,000 mg PO BID 10/06/16 06/10/20 DULoxetine HCL [Cymbalta] 60 mg PO HS 10/29/17 06/10/20 Levothyroxine Sodium [Synthroid] 25 mcg PO DAILY 10/29/17 06/10/20 Furosemide [Lasix] 20 mg PO DAILY 03/29/19 06/10/20 Rosuvastatin Calcium [Crestor] 40 mg PO DAILY 04/24/20 06/10/20 lisinopriL [Zestril] 5 mg PO QAM 04/24/20 06/10/20 Previous Rx's Medication Instructions Recorded Amoxicillin/Potassium Clav 1 tab PO Q12HR #20 tab 06/01/20 [Augmentin 875-125 Tablet] Ondansetron [Zofran ODT] 4 mg PO Q8HR PRN #15 tab 06/01/20 Allergies Allergy/AdvReac Type Severity Reaction Status Date / Time hydrocodone [From Vicodin] Allergy Unknown Verified 07/02/20 14:10 naproxen Allergy Unknown Verified 07/02/20 14:10 phenobarbital Allergy Unknown Verified 07/02/20 14:10 Review of Systems ROS Statement: Those systems with pertinent positive or pertinent negative responses have been documented in the HPI. ROS Other: All systems not noted in ROS Statement are negative. Past Medical History Past Medical History: Asthma, COPD, GERD/Reflux, Hyperlipidemia, Hypertension, Osteoarthritis (OA), Pneumonia, Seizure Disorder, Skin Disorder, Thyroid Disorder Additional Past Medical History / Comment(s): Rosacea, chronic back pain, Last "big" seizure 2017, states had "small seizure" 06/01/20,Hands shake a lot from medicine. frequent diarrhea, Rectal bleeding recently. states Hx of colon polyps, Hx Pneumonia with right lung damage 2 yrs ago. states O2 @HS 3L History of Any Multi-Drug Resistant Organisms: None Reported Past Surgical History: Cholecystectomy, Hernia Repair, Orthopedic Surgery Additional Past Surgical History / Comment(s): Vasectomy, right knee surgery. Past Anesthesia/Blood Transfusion Reactions: No Reported Reaction Past Psychological History: Anxiety, Depression Smoking Status: Light tobacco smoker Past Alcohol Use History: None Reported Past Drug Use History: None Reported - Past Family History Mother Family Medical History: Hypertension Father Family Medical History: Cancer Additional Family Medical History / Comment(s): Lung cancer. Son(s) Family Medical History: Seizure Disorder General Exam Limitations: no limitations General appearance: alert, in no apparent distress Head exam: Present: atraumatic, normocephalic, normal inspection Eye exam: Present: normal appearance, PERRL, EOMI. Absent: scleral icterus, conjunctival injection, periorbital swelling ENT exam: Present: normal exam, normal oropharynx, mucous membranes moist Neck exam: Present: normal inspection, full ROM. Absent: tenderness, meningismus, lymphadenopathy Respiratory exam: Present: normal lung sounds bilaterally. Absent: respiratory distress, wheezes, rales, rhonchi, stridor Cardiovascular Exam: Present: regular rate, normal rhythm, normal heart sounds. Absent: systolic murmur, diastolic murmur, rubs, gallop, clicks Extremities exam: Present: normal inspection, full ROM, normal capillary refill. Absent: tenderness, pedal edema, joint swelling, calf tenderness Neurological exam: Present: alert, oriented X3, CN II-XII intact, reflexes normal. Absent: motor sensory deficit Skin exam: Present: warm, dry, intact, normal color. Absent: rash Course Vital Signs 07/02/20 07/02/20 07/02/20 14:10 14:28 15:42 Temperature 98.2 F Pulse Rate 76 75 68 Respiratory 16 16 18 Rate Blood Pressure 125/83 117/84 117/87 O2 Sat by Pulse 98 98 98 Oximetry Medical Decision Making - Medical Decision Making 79-year-old male presented for concern of possible atypical seizure. Patient had no seizure-like activity year. Patient is stable. Patient is an appointment with neurologist tomorrow and which he'll make any medication adjustments typical level within normal limits, patient's Keppra level is pending. Patient feels comfortable with planned discharge and close follow-up tomorrow. - Lab Data Result diagrams: 07/02/20 15:22 07/02/20 15:22 Lab Results 07/02/20 07/02/20 Range/Units 15:22 15:22 WBC 6.5 (3.8-10.6) k/uL RBC 4.02 L (4.30-5.90) m/uL Hgb 12.3 L (13.0-17.5) gm/dL Hct 37.3 L (39.0-53.0) % MCV 92.8 (80.0-100.0) fL MCH 30.6 (25.0-35.0) pg MCHC 32.9 (31.0-37.0) g/dL RDW 13.3 (11.5-15.5) % Plt Count 201 (150-450) k/uL Neutrophils % 54 % Lymphocytes % 31 % Monocytes % 7 % Eosinophils % 5 % Basophils % 1 % Neutrophils # 3.5 (1.3-7.7) k/uL Lymphocytes # 2.0 (1.0-4.8) k/uL Monocytes # 0.5 (0-1.0) k/uL Eosinophils # 0.3 (0-0.7) k/uL Basophils # 0.1 (0-0.2) k/uL Sodium 143 (137-145) mmol/L Potassium 4.5 (3.5-5.1) mmol/L Chloride 108 H (98-107) mmol/L Carbon Dioxide 30 (22-30) mmol/L Anion Gap 5 mmol/L BUN 11 (9-20) mg/dL Creatinine 0.72 (0.66-1.25) mg/dL Est GFR (CKD-EPI)AfAm >90 (>60 ml/min/1.73 sqM) Est GFR (CKD-EPI)NonAf >90 (>60 ml/min/1.73 sqM) Glucose 90 (74-99) mg/dL Calcium 9.8 (8.4-10.2) mg/dL Total Bilirubin 0.2 (0.2-1.3) mg/dL AST 22 (17-59) U/L ALT 17 (4-49) U/L Alkaline Phosphatase 57 (38-126) U/L Total Protein 7.1 (6.3-8.2) g/dL Albumin 4.2 (3.5-5.0) g/dL Valproic Acid 97.4 ug/mL - EKG Data EKG Comments: EKG performed at 15:09 sinus rhythm rate of 68 VA 1:30 QRS 88 QT status QTC 366/389 Disposition Clinical Impression: Generalized seizure, Occasional tremors Disposition: HOME SELF-CARE Condition: Stable Instructions (If sedation given, give patient instructions): Recurrent Seizures in Adults (ED) Additional Instructions: Please return to the Emergency Department if symptoms worsen or any other concerns. Is patient prescribed a controlled substance at d/c from ED?: No Referrals: Minesh Watkins MD [Primary Care Provider] - 1-2 days Time of Disposition: 16:06
[2020-07-02 15:41] LABS: Basophils # (A) 0.1 k/uL (0-0.2); Basophils % (A) 1 %; Eosinophils # (A) 0.3 k/uL (0-0.7); Eosinophils % (A) 5 %; HCT 37.3 % (39.0-53.0); HGB 12.3 gm/dL (13.0-17.5); Lymphocytes % (A) 31 %; MCH 30.6 pg (25.0-35.0); MCHC 32.9 g/dL (31.0-37.0); MCV 92.8 fL (80.0-100.0); Mean Platelet Volume 8.2; Monocytes # (A) 0.5 k/uL (0-1.0); Monocytes % (A) 7 %; Neutrophils # (A) 3.5 k/uL (1.3-7.7); Neutrophils % (A) 54 %; Platelet Count 201 k/uL (150-450); RBC 4.02 m/uL (4.30-5.90); RDW 13.3 % (11.5-15.5); WBC 6.5 k/uL (3.8-10.6)
[2020-07-02 15:43] VITALS: RESP 18
[2020-07-02 15:52] LABS: ALT 17 U/L (4-49); AST 22 U/L (17-59); African American GFR (CKD) >90 (>60 ml/min/1.73 sqM); Albumin 4.2 g/dL (3.5-5.0); Alkaline Phosphatase 57 U/L (38-126); Anion Gap 5 mmol/L; Blood Urea Nitrogen 11 mg/dL (9-20); Calcium 9.8 mg/dL (8.4-10.2); Carbon Dioxide 30 mmol/L (22-30); Chloride 108 mmol/L (98-107); Glucose 90 mg/dL (74-99); Non-African American GFR(CKD) >90 (>60 ml/min/1.73 sqM); Potassium 4.5 mmol/L (3.5-5.1); Sodium 143 mmol/L (137-145); Total Bilirubin 0.2 mg/dL (0.2-1.3); Total Protein 7.1 g/dL (6.3-8.2)
[2020-07-02 15:57] LABS: Valproic Acid (Depakene) 97.4 ug/mL
[2020-07-02] MEDS ORDERED: LORazepam 1 MG TAB PO STA (16:28)
[2020-07-02 16:33] VITALS: BP 137/86; PULSE 77
== END 2020-07-02 16:33 | disposition home or self-care (01) ==
LOC: EC 14:06
DX: G40.909 Epilepsy, unspecified, not intractable, without status epilepticus (principal); R25.1 Tremor, unspecified; J44.9 Chronic obstructive pulmonary disease, unspecified; I10 Essential (primary) hypertension; E78.5 Hyperlipidemia, unspecified; K21.9 Gastro-esophageal reflux disease without esophagitis; E07.9 Disorder of thyroid, unspecified; F41.9 Anxiety disorder, unspecified; F32.9 Major depressive disorder, single episode, unspecified; F17.200 Nicotine dependence, unspecified, uncomplicated; Z79.890 Hormone replacement therapy; Z79.899 Other long term (current) drug therapy; Z88.5 Allergy status to narcotic agent; Z88.6 Allergy status to analgesic agent; Z88.8 Allergy status to other drugs, medicaments and biological substances
CPT/HCPCS: 36415; 93005; 80164; 80053; 80177; 85025; 99284; 96374; J2060

== ENCOUNTER → 2020-07-09 | Outpatient (CLI) | payer MEDICARE, OTHER ==
--- NOTE | 2020-07-09 10:24 | MR ---
EXAMINATION TYPE: MR cervical spine wo con DATE OF EXAM: 07/09/2020 COMPARISON: 10/23/2016 HISTORY: Radiculopathy, cervical region TECHNIQUE: Multiplanar, multisequence images of the cervical spine were acquired. C2-C3: There is facet arthropathy and uncovertebral joint hypertrophy which results in mild bilateral foraminal encroachment greater on the right. No Canal stenosis. No focal herniation. C3-C4: Degenerative disc disease with facet arthropathy and uncovertebral joint hypertrophy. Findings are greater on the left with mild right foraminal encroachment and severe left foraminal encroachmen t. No focal herniation or canal stenosis. Disc osteophyte complex extends laterally to the right. C4-C5: Degenerative disc disease with uncovertebral joint hypertrophy and facet arthropathy. Mild ata ateral foraminal encroachment. No Canal stenosis. C5-C6: Degenerative disc disease and facet arthropathy with uncovertebral joint hypertrophy. Mild michael tral disc bulging but no focal herniation or canal stenosis. Mild to moderate bilateral foraminal enc roachment. C6-C7: Right paracentral disc protrusion or small herniation. Uncovertebral joint hypertrophy. Modera te right-sided foraminal encroachment. Mild anterior displacement of the thecal sac. C7-T1: No evidence for degenerative disc disease. No disc bulge/herniation or protrusion. No Canal stenosis. Foramina are patent bilaterally. Cervical segments are intact. There is normal alignment. Cervical spinal cord is of normal signal. Craniovertebral junction relationships are within normal limits. IMPRESSION: 1. Multilevel degenerative disc disease is similar relative to the previous exam with multilevel cerv ical spondylosis and facet arthropathy. 2. Right paracentral disc protrusion or small herniation with mild anterolateral impression upon the thecal sac is similar to the prior exam at C6-C7. 3. Multilevel foraminal encroachment as discussed above.
== END | disposition home or self-care (01) ==
LOC: RADMRIMAIN 08:49
PROVIDERS: ATTEND Psychiatry & Neurology Neurology
DX: M50.01 Cervical disc disorder with myelopathy, high cervical region (principal); M47.812 Spondylosis without myelopathy or radiculopathy, cervical region; M50.223 Other cervical disc displacement at C6-C7 level; M50.11 Cervical disc disorder with radiculopathy, high cervical region
CPT/HCPCS: 72141

== ENCOUNTER → 2020-12-02 | Outpatient (CLI) | payer MEDICARE, OTHER ==
--- NOTE | 2020-12-02 20:38 | MR ---
EXAMINATION TYPE: MR lumbar spine wo con DATE OF EXAM: 12/02/2020 COMPARISON: 08/14/2016 HISTORY: Chronic low back pain CONTRAST: 0 mL intravenous Gadavist. TECHNIQUE: Multiplanar, multisequence images of the lumbar spine were acquired. FINDINGS: L5-S1: There is central disc bulge with mild central thecal sac impression. No AP spinal canal steno sis. L4-L5: Broad-based disc bulge has mild anterior thecal sac compression. No AP spinal canal stenosis i s present. L3-L4: No significant disc bulge or disc herniation. No spinal canal stenosis. No foraminal stenosi s. Disc Dessication. L2-L3: No significant disc bulge or disc herniation. No spinal canal stenosis. No foraminal stenosi s. L1-L2: No significant disc bulge or disc herniation. No spinal canal stenosis. No foraminal stenosi s. T12-L1: No significant disc bulge or disc herniation. No spinal canal stenosis. No foraminal stenos is. IMPRESSION: 1. Central disc bulge L5-S1 with mild anterior thecal sac compression. This is diminished from compar david. 2. Disc desiccation without loss of disc height L3-4 through L5-S1.
== END | disposition home or self-care (01) ==
LOC: RADMRIMAIN 14:32
PROVIDERS: ATTEND Psychiatry & Neurology Neurology
DX: M51.17 Intervertebral disc disorders with radiculopathy, lumbosacral region (principal)
CPT/HCPCS: 72148

== ENCOUNTER → 2021-10-26 | Outpatient (CLI) | payer MEDICARE, OTHER | END | disposition home or self-care (01) | LOC: LABWHC1 10:59 | PROVIDERS: ATTEND Psychiatry & Neurology Neurology | DX: G40.009 Localization-related (focal) (partial) idiopathic epilepsy and epileptic syndromes with seizures of localized onset, not intractable, without status epilepticus (principal) | CPT/HCPCS: 36415; 80164; 80177 ==

== ENCOUNTER → 2022-07-22 | Outpatient (CLI) | payer MEDICARE, OTHER ==
[2022-07-22 09:12] VITALS: BP 144/83; PULSE 100; RESP 19; TEMP 98.3
--- NOTE | 2022-07-22 14:49 | P.PAINPG ---
PQRS Measure Charge Sheet Comment: HISTORY OF PRESENT ILLNESS: 51 yr old male as a referral from Dr. Jauregui presents today w severe and chronic neck pain secondary to DDD, spondylosis and facet arthropathy without myelopathy for evaluation. Pt states his pain level is currently at 10 /10 in intensity, constant, localized in the mid to lower L cervical spine, achy/tight in character w radiation up and down the neck. Pain is provoked by lifting. Pain is alleviated w use of a walker for ambulation, use of a soft c collar, repositioning and rest. PMH: Asthma, COPD, GERD, Hyperlipidemia, HTN, OA, Seizure Disorder (2018), Rosacea, Hypothyroidism, MDD/ Anxiety PSH: Cholecystectomy, Vasectomy, R Knee Surgery, Hernia Repair, Colonoscopy (2019) SH: +Tobacco use, No ETOH abuse, No illicit drug use. FH: Mo- HTN. Fa- Lung CA. Son- Seizure Disorder. All: See list Meds: See list REVIEW OF ORGAN SYSTEMS: CONSTITUTIONAL: No fevers or chills. No recent weight loss. NEUROLOGICAL: + numbness and tingling along the distal extremities. No seizure disorders or headaches. MUSCULOSKELETAL: + pain PSYCHIATRIC: Denies current depression or suicidal thoughts. Physical Examinations : Constitutional : Cooperative , not in acute distress . Neurologic : Cranial nerve II to XII intact. No focal neurological deficits. Psychiatric : alert & oriented x 3. Matching mood & appropriate affect. Judgment & insight intact. Musculoskeletal : Cervical Spine Motor strength in the deltoid and biceps: Normal right side. Normal Left side Motor strength biceps and the wrist extensors: Normal right side . Normal left side Motor strength in the triceps muscle: Normal right side. Normal left side Deep tendon reflexes: Normal at the biceps. Normal at Brachioradialis. Normal at triceps Vertebral body tenderness to deep palpation over C4, C5, C6 Cervical facet loading test: positive bilaterally Spurling test: positive bilaterally Neck distraction test: positive bilaterally Tena sign: positive bilaterally Lumbar spine Motor strength lower extremities ,thigh and legs 5/5 Right side , 5/5 Left side Deep tendon reflexes : Normal Knee Jerk. Normal Ankle Jerk Vertebral body tenderness over Lumbar facet Loading Test: positive Right / positive Left Range of motion of the lumbar spine Flexion 30 degrees, extension 10 degrees Straight Leg Raise test: Left/ Right positive at degree Balta test: positive right / positive left. Severe tenderness over the Sacroiliac joint on the Right / Left sides Gaenslen test: positive bilaterally Seated flexion test: positive bilaterally. Sacral spine : Severe tenderness over the Sacroiliac joint: right side / left side Range of motion: Flexion of the lumbar spine <60 degrees Range of motion: Extension of the lumbar spine <20 degrees Gaenslen's Test positive Mathew's Test positive Balta test: positive right side / left side Thigh Thrust Test Sacral Thrust Test Imaging: MRI without contrast of the cervical spine from 07/09/20 reviewed Assessment/ Plan : Cervical DDD, cervical spondylosis Recommendation of PT x 6 wks re: M50.30. Pt would benefit from a L paramedian DARLENE C6-C7 if pt continues to have symptoms after PT. Risks, benefits of procedure discussed and patient verbalized understanding. Denies aspirin or anti- coagulant use or medical history of diabetes. Protocol for discontinuation/ continuation of medications wandy procedure discussed. All questions answered. I have spent greater than 30 minutes on patient care today. Dr Oneal was available by phone for the evaluation of this patient. The time was used to review the medical records including relevant urine studies and Prescription history (MAPs), review of the available imaging, evaluation and examination of the patient, coordination of care with the medical staff and if applicable referring physicians, as well as creation of the medical record - Pain Location Right Neck Non-Pharmacological Interventions: Position/Reposition PQRS Narrative: Smoking Status Current every day smoker Home Medications: Ambulatory Orders Albuterol Nebulized [Ventolin Nebulized] 2.5 mg INHALATION TID PRN 04/04/14 Divalproex ER [Depakote ER] 250 mg PO BID 04/04/14 Divalproex Sodium [Depakote ER] 500 mg PO BID 04/04/14 Omeprazole [PriLOSEC] 20 mg PO BID 10/06/16 levETIRAcetam [Keppra] 1,000 mg PO BID 10/06/16 DULoxetine HCL [Cymbalta] 60 mg PO HS 10/29/17 Levothyroxine Sodium [Synthroid] 25 mcg PO DAILY 10/29/17 Furosemide [Lasix] 20 mg PO DAILY 03/29/19 Rosuvastatin Calcium [Crestor] 40 mg PO DAILY 04/24/20 lisinopriL [Zestril] 5 mg PO QAM 04/24/20 Amoxicillin/Potassium Clav [Augmentin 875-125 Tablet] 1 tab PO Q12HR #20 tab 06/01/20 Ondansetron [Zofran ODT] 4 mg PO Q8HR PRN #15 tab 06/01/20 Controlled Substance Measures - Controlled Substance Measures Is patient prescribed a controlled substance at discharge?: No
== END ==
LOC: PNWHC3 08:24
PROVIDERS: ATTEND Specialist
DX: M50.30 Other cervical disc degeneration, unspecified cervical region (principal); M47.812 Spondylosis without myelopathy or radiculopathy, cervical region; J44.9 Chronic obstructive pulmonary disease, unspecified; K21.9 Gastro-esophageal reflux disease without esophagitis; E78.5 Hyperlipidemia, unspecified; I10 Essential (primary) hypertension; M19.90 Unspecified osteoarthritis, unspecified site; E03.9 Hypothyroidism, unspecified; F41.9 Anxiety disorder, unspecified; F17.210 Nicotine dependence, cigarettes, uncomplicated; Z88.8 Allergy status to other drugs, medicaments and biological substances
CPT/HCPCS: 99211

== ENCOUNTER → 2022-10-20 | Outpatient (CLI) | payer MEDICARE, OTHER ==
--- NOTE | 2022-10-20 10:59 | MR ---
EXAMINATION TYPE: MR brain wo con DATE OF EXAM: 10/20/2022 8:02 AM COMPARISON: 01/16/2014 CT brain. CLINICAL INDICATION:Male, 51 years old with history of G40.909 seizure; TECHNIQUE: Multi planar, multi sequence imaging was performed through the brain including: T1, T2, In version recovery, Diffusion weighted imaging, and gradient echo imaging. No gadolinium was given. FINDINGS: Remote injury to the left frontal lobe orbital gyrus similar to prior in 2013. The reyna-white junctions, ventricular system, and cisterns appear unremarkable. Midline structures sh ow no abnormality. Diffusion-weighted imaging shows no evidence of restricted diffusion. The suscepti bility weighted images do not reveal any evidence for micro-hemorrhage. The bone marrow signal is within normal limits. Paranasal sinuses and mastoid air cells: Mild scattered paranasal sinus disease. High T2 signal seen within the right mastoid air cells and to a lesser extent left mastoid air cells. Visualized orbits: Orbital contents are intact. IMPRESSION: 1. No evidence of intracranial mass or acute/subacute infarct. 2. Trace bilateral mastoid air cell effusion and mild paranasal sinus disease. 3. Remote injury to the left orbital gyrus similar back to 2013.
== END | disposition home or self-care (01) ==
LOC: RADMRIMAIN 07:07
PROVIDERS: ATTEND Psychiatry & Neurology Neurology
DX: J32.8 Other chronic sinusitis (principal); H74.8X3 Other specified disorders of middle ear and mastoid, bilateral; G40.909 Epilepsy, unspecified, not intractable, without status epilepticus
CPT/HCPCS: 70551

== ENCOUNTER → 2022-11-12 | Outpatient (CLI) | payer MEDICARE ==
[2022-11-12 14:27] LABS: Basophils # (A) 0.03 X 10*3/uL (0.00-0.10); Basophils % (A) 0.6 %; Eosinophils # (A) 0.19 X 10*3/uL (0.04-0.35); Eosinophils % (A) 3.6 %; HCT 37.8 % (39.6-50.0); Immature Grans, Automated 0.8 %; Lymphocytes # (A) 1.75 X 10*3/uL (0.90-5.00); Lymphocytes % (A) 33.5 %; MCH 31.1 pg (27.0-32.0); MCHC 31.7 g/dL (32.0-37.0); MCV 97.9 fL (80.0-97.0); Mean Platelet Volume 8.9 fL (9.5-12.2); Monocytes # (A) 0.75 X 10*3/uL (0.20-1.00); Monocytes % (A) 14.4 %; NRBC Per 100 WBC 0 /100 WBCS (0.0-0.0); Neutrophils # (A) 2.46 X 10*3/uL (1.80-7.70); Neutrophils % (A) 47.1 %; Platelet Count 266 X 10*3/uL (140-440); RBC 3.86 X 10*6/uL (4.40-5.60); RDW 13.8 % (11.5-14.5); WBC 5.22 X 10*3/uL (4.50-10.00)
== END | disposition home or self-care (01) ==
LOC: LABWHC1 08:25
PROVIDERS: ATTEND Psychiatry & Neurology Neurology
DX: G40.909 Epilepsy, unspecified, not intractable, without status epilepticus (principal)
CPT/HCPCS: 36415; 80164; 80177; 84450; 84460; 85025

== ENCOUNTER → 2023-09-21 | Outpatient (CLI) | payer MEDICARE, OTHER ==
[2023-09-21 15:36] LABS: Platelet Count 255 X 10*3/uL (140-440)
[2023-09-21 18:32] LABS: Valproic Acid (Depakene) 70.9 UG/ML (50.0-100.0)
== END | disposition home or self-care (01) ==
LOC: LABWHC1 11:49
PROVIDERS: ATTEND Psychiatry & Neurology Neurology
DX: G40.909 Epilepsy, unspecified, not intractable, without status epilepticus (principal)
CPT/HCPCS: 36415; 80164; 80177; 84450; 84460; 85049

== ENCOUNTER 2023-10-01 10:17 | Emergency (ER) | payer MEDICARE, OTHER ==
[2023-10-01 10:32] VITALS: RESP 20; TEMP 97.8
[2023-10-01] MEDS ORDERED: ACET/COD 300 MG/30 MG STARTER PACK 6 TAB BTL PO STA (11:37)
--- NOTE | 2023-10-01 11:50 | ED ---
General Adult HPI - General Chief complaint: Extremity Problem,Nontraumatic Stated complaint: Rt arm pain Time Seen by Provider: 10/01/23 11:22 Source: patient, RN notes reviewed Mode of arrival: ambulatory Limitations: no limitations - History of Present Illness Initial comments: 52-year-old male with a past medical history of asthma, COPD, hyperlipidemia, hypertension, chronic back pain presents for right arm pain. Patient states a couple weeks ago he developed pain that radiates from the posterior right neck down to the right arm. Patient states certain movements exacerbate this such as when he turns his neck the right or when he crosses his arm over his body. The pain as a sharp shooting pain. He denies any weakness in his hand or numbness in his hand. Patient states he has previously been seen by pain management for neck problems. Cervical spine MRI from 2019 showed multilevel degenerative disc disease and disc protrusion at C6-C7. Denies any associated chest pain or shortness of breath. Denies any injuries associated with this.Patient has no other complaints at this time including shortness of breath, chest pain, abdominal pain, nausea or vomiting, headache, or visual changes. - Related Data Home Medications Medication Instructions Recorded Confirmed Albuterol Nebulized [Ventolin 2.5 mg INHALATION TID PRN 04/04/14 06/10/20 Nebulized] Divalproex ER [Depakote ER] 250 mg PO BID 04/04/14 06/10/20 Divalproex Sodium [Depakote ER] 500 mg PO BID 04/04/14 06/10/20 Omeprazole [PriLOSEC] 20 mg PO BID 10/06/16 06/10/20 levETIRAcetam [Keppra] 1,000 mg PO BID 10/06/16 06/10/20 DULoxetine HCL [Cymbalta] 60 mg PO HS 10/29/17 06/10/20 Levothyroxine Sodium [Synthroid] 25 mcg PO DAILY 10/29/17 06/10/20 Furosemide [Lasix] 20 mg PO DAILY 03/29/19 06/10/20 Rosuvastatin Calcium [Crestor] 40 mg PO DAILY 04/24/20 06/10/20 lisinopriL [Zestril] 5 mg PO QAM 04/24/20 06/10/20 Previous Rx's Medication Instructions Recorded Amoxicillin/Potassium Clav 1 tab PO Q12HR #20 tab 06/01/20 [Augmentin 875-125 Tablet] Ondansetron [Zofran ODT] 4 mg PO Q8HR PRN #15 tab 06/01/20 Allergies Allergy/AdvReac Type Severity Reaction Status Date / Time hydrocodone [From Vicodin] Allergy Unknown Verified 10/01/23 10:22 naproxen Allergy Unknown Verified 10/01/23 10:22 phenobarbital Allergy Unknown Verified 10/01/23 10:22 Review of Systems ROS Statement: Those systems with pertinent positive or pertinent negative responses have been documented in the HPI. ROS Other: All systems not noted in ROS Statement are negative. Past Medical History Past Medical History: Asthma, COPD, GERD/Reflux, Hyperlipidemia, Hypertension, Osteoarthritis (OA), Pneumonia, Seizure Disorder, Skin Disorder, Thyroid Disorder Additional Past Medical History / Comment(s): Rosacea, chronic back pain, Last "big" seizure 2017, states had "small seizure" 06/01/20,Hands shake a lot from medicine. frequent diarrhea, Rectal bleeding recently. states Hx of colon polyps, Hx Pneumonia with right lung damage 2 yrs ago. states O2 @HS 3L History of Any Multi-Drug Resistant Organisms: None Reported Past Surgical History: Cholecystectomy, Hernia Repair, Orthopedic Surgery Additional Past Surgical History / Comment(s): Vasectomy, right knee surgery. Past Anesthesia/Blood Transfusion Reactions: No Reported Reaction Past Psychological History: Anxiety, Depression Smoking Status: Light tobacco smoker Past Alcohol Use History: None Reported Past Drug Use History: None Reported - Past Family History Mother Family Medical History: Hypertension Father Family Medical History: Cancer Additional Family Medical History / Comment(s): Lung cancer. Son(s) Family Medical History: Seizure Disorder General Exam Limitations: no limitations General appearance: alert, in no apparent distress Head exam: Present: atraumatic Eye exam: Present: normal appearance, PERRL, EOMI. Absent: scleral icterus, conjunctival injection ENT exam: Present: normal exam, mucous membranes moist Neck exam: Present: normal inspection, tenderness (Right paraspinal cervical tenderness), full ROM, other (Rotation to the right causes pain) Respiratory exam: Present: normal lung sounds bilaterally. Absent: respiratory distress, wheezes Cardiovascular Exam: Present: regular rate, normal rhythm, normal heart sounds Extremities exam: Present: full ROM (Full range of motion of the right arm however crossing the right arm over the body and fully extending the right arm are painful to patient.), normal capillary refill (cap refill less than 2 seconds right upper extremity, radial pulse 2+.), other (sensation intact in right lower extremity. Patient able to make fists, abduction fingers, and make okay sign.) Neurological exam: Present: alert Course Vital Signs 10/01/23 10:20 Temperature 97.8 F Pulse Rate 106 H Respiratory 20 Rate Blood Pressure 122/79 O2 Sat by Pulse 99 Oximetry Medical Decision Making - Medical Decision Making Was pt. sent in by a medical professional or institution (, [facility], VISUAL INSPECTOR, urgent care, hospital, or [place] [facility] care facility...) When possible be specific @ -[No] Did you speak to anyone other than the patient for history (EMS, parent, family, police, friend...)? What history was obtained from this source @ -[No] Did you review nursing and triage notes (agree or disagree)? Why? @ -[I reviewed and agree with nursing and triage notes] Were old charts reviewed (outside hosp., previous admission, EMS record, old EKG, old radiological studies, urgent care reports/EKG's, [place] [facility] facility records)? Report findings @ -Cervical spine MRI from 2019 reviewed Differential Diagnosis (chest pain, altered mental status, abdominal pain women, abdominal pain men, vaginal bleeding, weakness, fever, dyspnea, syncope, headache, dizziness, GI bleed, back pain, seizure, CVA, palpatations, mental health)? @ -Cervical spine fracture, disc protrusion, cervical radiculopathy, SD, DVT EKG interpreted by me (3pts min.). @ -None done X-rays interpreted by me (1pt min.). @ -[None done] CT interpreted by me (1pt min.). @ -[None done] U/S interpreted by me (1pt. min.). @ -[None done] What testing was considered but not performed or refused? (CT, X-rays, U/S, labs)? Why? @ -CT neck however no injury, MRI would be a better study outpatient. What meds were considered but not given or refused? Why? @ -[None] Did you discuss the management of the patient with other professionals (professionals i.e. , PA, VISUAL INSPECTOR, lab, RT, psych nurse, social work lecturer, dairy nutritionist, teacher, attendance officer, ed case manager)? Give summary @ -[No] Was smoking cessation discussed for >3mins.? @ -[No] Was critical care preformed (if so, how long)? @ -[No] Were there social determinants of health that impacted care today? How? (Homelessness, low income, unemployed, alcoholism, drug addiction, transportation, low edu. Level, literacy, decrease access to med. care, snf, re hab)? @ -[No] Was there de-escalation of care discussed even if they declined (Discuss DNR or withdrawal of care, Hospice)? DNR status @ -[No] What co-morbidities impacted this encounter? (DM, HTN, Smoking, COPD, CAD, Cancer, CVA, ARF, Chemo, Hep., AIDS, mental health diagnosis, sleep apnea, morbid obesity)? @ -htn, hyperlipidemia, chronic Was patient admitted / discharged? Hospital course, mention meds given and route, prescriptions, significant lab abnormalities, going to OR and other pertinent info. @ -She has seen in the ER. Pain radiates from the neck to the hand. It is very positional. Patient was given Toradol and sent home with a starter packet of Tylenol 3 as he is not able to get to a pharmacy and our pharmacy is closed on Tuesday. He will follow-up with orthopedics. He will return here for any worsening symptoms. Undiagnosed new problem with uncertain prognosis? @ -[No] Drug Therapy requiring intensive monitoring for toxicity (Heparin, Nitro, Insulin, Cardizem)? @ -[No] Were any procedures done? @ -[No] Diagnosis/symptom? @ -cervical radiculopathy, arm pain Acute, or Chronic, or Acute on Chronic? @ -Acute on chronic Uncomplicated (without systemic symptoms) or Complicated (systemic symptoms)? @ -uncomplicated Side effects of treatment? @ -[No] Exacerbation, Progression, or Severe Exacerbation? @ -[No] Poses a threat to life or bodily function? How? (Chest pain, USA, SD, pneumonia, PE, COPD, DKA, ARF, appy, cholecystitis, CVA, Diverticulitis, Homicidal, Suicidal, threat to staff... and all critical care pts) @ -[No] Discussed with Dr Bartlett Disposition Clinical Impression: Cervical radiculopathy, Right arm pain Disposition: HOME SELF-CARE Condition: Good Instructions (If sedation given, give patient instructions): Cervical Radiculopathy (ED) Additional Instructions: Please take Tylenol 3 as needed for pain. Please follow-up with your doctor. Return to the emergency room for any worsening symptoms. Is patient prescribed a controlled substance at d/c from ED?: No Referrals: Darell Jauregui DO [Primary Care Provider] - 1-2 days Silva Ochoa DO [Doctor of Osteopathic Medicine] - 1-2 days Time of Disposition: 11:55
[2023-10-01 12:24] VITALS: BP 120/79; PULSE 83
== END 2023-10-01 12:14 | disposition home or self-care (01) ==
LOC: EC 10:17
DX: M54.12 Radiculopathy, cervical region (principal); I10 Essential (primary) hypertension; J44.89 Other specified chronic obstructive pulmonary disease; E78.5 Hyperlipidemia, unspecified; K21.9 Gastro-esophageal reflux disease without esophagitis; G40.909 Epilepsy, unspecified, not intractable, without status epilepticus; E07.9 Disorder of thyroid, unspecified; F32.A Depression, unspecified; F41.9 Anxiety disorder, unspecified; Z79.890 Hormone replacement therapy; Z79.899 Other long term (current) drug therapy; Z88.5 Allergy status to narcotic agent; Z88.8 Allergy status to other drugs, medicaments and biological substances; Z90.49 Acquired absence of other specified parts of digestive tract
CPT/HCPCS: 99284

== ENCOUNTER → 2023-11-28 | Outpatient (CLI) | payer MEDICARE, OTHER ==
[2023-11-28 16:17] LABS: Platelet Count 191 X 10*3/uL (140-440)
[2023-11-28 19:13] LABS: Valproic Acid (Depakene) 48.2 UG/ML (50.0-100.0)
== END | disposition home or self-care (01) ==
LOC: LABWHC1 10:53
PROVIDERS: ATTEND Psychiatry & Neurology Neurology
DX: G40.909 Epilepsy, unspecified, not intractable, without status epilepticus (principal)
CPT/HCPCS: 36415; 80164; 80177; 84450; 84460; 85049

== ENCOUNTER → 2024-08-21 | Outpatient (CLI) | payer MEDICARE, OTHER ==
--- NOTE | 2024-08-22 19:23 | MR ---
EXAMINATION TYPE: MR lumbar spine wo con DATE OF EXAM: 08/21/2024 8:27 PM COMPARISON: 12/02/2020 CLINICAL INDICATION: Male, 53 years old with history of M47.819, M48.061, M54.50, Low back pain into Rt Hip, Numbness Rt leg TECHNIQUE: Multiplanar, multisequence images of the lumbar spine were acquired. IV Contrast: mL (None, if empty) FINDINGS: Cord ends at the T12-L1 L5-S1: No focal disc herniation or significant disc bulge. No spinal canal stenosis. Neural foramen are patent. Disc desiccation is present. Disc height is preserved. L4-L5: No focal disc herniation or significant disc bulge. No spinal canal stenosis. Neural foramen are patent. Mild disc desiccation is present. Disc height is preserved. L3-L4: No focal disc herniation or significant disc bulge. No spinal canal stenosis. Neural foramen are patent. Mild disc desiccation is present. Disc height is preserved. L2-L3: No focal disc herniation or significant disc bulge. No spinal canal stenosis. Neural foramen are patent. L1-L2: No focal disc herniation or significant disc bulge. No spinal canal stenosis. Neural foramen are patent. T12-L1: No focal disc herniation or significant disc bulge. No spinal canal stenosis. Neural forame n are patent. IMPRESSION: 1. Mild disc desiccation without loss of disc height at L3-4 through L5-S1. 2. No suspicious disc herniation or significant disc bulge. [facility], Workstation: [id number], 08/22/2024 7:21 PM
== END | disposition home or self-care (01) ==
LOC: RADMRIMAIN 20:15
PROVIDERS: ATTEND Orthopaedic Surgery
DX: M48.061 Spinal stenosis, lumbar region without neurogenic claudication (principal); M47.816 Spondylosis without myelopathy or radiculopathy, lumbar region
CPT/HCPCS: 72148

== ENCOUNTER → 2025-02-18 | Outpatient (CLI) | payer MEDICARE, OTHER ==
[2025-02-18 15:07] LABS: Platelet Count 250 X 10*3/uL (140-440)
[2025-02-18 18:34] LABS: Valproic Acid (Depakene) 28.3 UG/ML (50.0-100.0)
[2025-02-19 04:56] LABS: Levetiracetam (Keppra) 10.2 ug/mL (3.0-60.0)
== END | disposition home or self-care (01) ==
LOC: LABWHC1 09:56
PROVIDERS: ATTEND Psychiatry & Neurology Neurology
DX: G40.909 Epilepsy, unspecified, not intractable, without status epilepticus (principal)
CPT/HCPCS: 36415; 80164; 80177; 80235; 84450; 84460; 85049